=== PATIENT | male | born 1950 | race African-American/Black ===

== ENCOUNTER → 2019-03-07 | Outpatient (CLI) | payer MEDICARE | LOC: YHH 15:00 ==

== ENCOUNTER 2019-07-10 10:10 | Inpatient (IN) | payer MEDICARE, OTHER ==
[2019-07-10] MEDS ORDERED: PIPERACILLIN/TAZOB 4.5 GM 4.5 GM in DEXTROSE 5%-WATER 100 ML IVPB ONE (11:55)
[2019-07-10] MEDS ORDERED: VANCOMYCIN 1 GM in D5W (PRE-DOCKED) 1,000 MG/250 ML IVPB ONE (11:55)
[2019-07-10 12:38] LABS: BASO % 1.1 % (0-2.0); EOS % 0.9 % (0-4.5); HEMATOCRIT 27.3 % (35.4-49); HEMOGLOBIN 8.8 GM/dL (11.7-16.9); LYMPH % 21.9 % (8-40); MCH 28.4 pg (25.7-33.7); MCHC 32.3 g/dl (32.0-35.9); MEAN CELL VOLUME 88.1 fl (80-96); MEAN PLT VOLUME 7.5 fl (7.5-11.1); MONO % 11.3 % (3.8-10.2); NEUT % 64.8 % (42.8-82.8); PLATELET COUNT 153 K/MM3 (134-434); RDW 13.9 % (11.9-15.9); WHITE BLOOD COUNT 8.6 K/mm3 (4.0-10.0)
[2019-07-10] MEDS ORDERED: PIPERACILLIN/TAZOB 4.5 GM 4.5 GM/100 ML BAG IVPB ONE (12:44)
[2019-07-10] MEDS ORDERED: VANCOMYCIN 1 GRAM (PRE-DOCKED) 1,000 MG/250 ML BAG IVPB ONE (12:45)
[2019-07-10 12:59] LABS: INR 1.04 (0.83-1.09); PROTHROMBIN TIME (PATIENT) 12.3 SEC (9.7-13.0)
--- NOTE | 2019-07-10 13:30 | PDOC ---
Documentation entered by Oscar Hernandez SCRIBE, acting as scribe for Jazmine Mcdonald MD. Jazmine Mcdonald MD: This documentation has been prepared by the David george Xhesika, SCRIBE, under my direction and personally reviewed by me in its entirety. I confirm that the documentation accurately reflects all work, treatment, procedures, and medical decision making performed by me. History of Present Illness - General Chief Complaint: Wound Stated Complaint: SENT BY DOCTOR History Source: Patient Exam Limitations: No Limitations - History of Present Illness Initial Comments: 07/10/19 11:52 The patient is a 68 year old male with a significant PMH of multiple myeloma ( receiving weekly infusions of daratumumab; followed by Francis Jones) , htn, dm who presents to the emergency department for bilateral lower extremity wounds with purulent malodorous discharge. Pt states his RLE wounds started before New Years [place], but his LLE wounds have been chronic for the past 4 months. Pt states his legs have been more swollen. Pt states he has seen Dr. Le in the past with no improvements or changes. The patient denies chest pain, shortness of breath, headache and dizziness. Denies fever, chills, cough, nausea, vomiting, diarrhea and constipation. Allergies: lisinopril PCP: Mini Unger 07/10/19 15:24 Past History - Past Medical History Allergies/Adverse Reactions: Allergies Allergy/AdvReac Type Severity Reaction Status Date / Time lisinopril Allergy Severe Swelling Verified 07/10/19 10:30 Home Medications: Ambulatory Orders Methadone [Dolophine -] 50 mg PO DAILY 12/11/17 Carvedilol [Coreg -] 12.5 mg PO BID 04/11/18 Docusate Sodium [Colace -] 100 mg PO TID #90 capsule 06/15/18 Mupirocin Cream [Bactroban 2% Cream -] 1 applic TP DAILY #1 tube 02/22/19 Alcohol Antiseptic Pads [Alcohol Prep Pads] 1 each TP TID #1 box 02/26/19 Diltiazem HCl [Diltiazem 24Hr Cd] 240 mg PO DAILY #30 cap.er.24h 02/26/19 Fluticasone Prop 0.05% Nasal [Flonase -] 1 - 2 spray NS DAILY #1 spray.pump Furosemide [Lasix -] 40 mg PO DAILY #30 tablet 02/26/19 Insulin Aspart [Novolog] 2 - 12 unit SQ TID #1 box 02/26/19 Insulin Detemir [Levemir Flextouch] 60 unit SQ HS #2 box 02/26/19 Insulin Sliding Scale [Novolog Vial Sliding Scale -] 2 - 12 units SQ TIDAC #1 box 02/26/19 Lancets [Lancets Ultra Thin] 1 each MC TID #100 each 02/26/19 Loratadine [Claritin -] 10 mg PO DAILY PRN #30 tablet 02/26/19 Miscellaneous Medical Supply [Glucometer Test Strips #100] 1 each HIMA TID #1 box 02/26/19 Pen Needle, Diabetic [Unifine Pentips] 1 each MC TID #100 dis.needle 02/26/19 Ergocalciferol (Vitamin D2) [Vitamin D2] 50,000 unit PO WEEKLY #4 capsule Multivitamin,Ther and Minerals [Vitamin and Minerals] 1 each PO DAILY #30 tablet 03/19/19 Acetaminophen [Tylenol .Regular Strength -] 650 mg PO Q6H PRN #60 tablet Albuterol Sulfate Inhaler - [Ventolin HFA Inhaler -] 1 - 2 inh PO Q6H PRN #1 inh 04/16/19 Ammonium Lactate Lotion [Lac-Hydrin 12] 1 applic TP ASDIR #1 bottle 04/16/19 Diaper,Brief,Adult, Disposable [Extra Absorbent Undergarment] 1 each MC 5XD # 150 each 04/16/19 Nicotine [Nicotine Patch 14mg/24 hr] 1 each TD DAILY #30 patch.td24 04/16/19 Omeprazole Magnesium [Prilosec Otc] 20 mg PO DAILY PRN #30 tablet. 04/16/19 Underpads [Durasorb] 1 each MC ASDIR #60 each 04/16/19 Walker [Ultra-Light Rollator] 1 each MC ASDIR #1 each 04/16/19 Anemia: Yes Cancer: Yes (multiple myeloma; stem cell trans. 2010, followed by, Dr. Forbes) Cardiac Disorders: Yes (heart murmur, congenital; chf) CVA: No COPD: No Diabetes: Yes HTN: Yes Hypercholesterolemia: No Liver Disease: No Seizures: No Other medical history: MULTIPLE MYOLOMA - Surgical History Orthopedic Surgery: Yes (rt hip replacement 2009) - Immunization History Immunization Up to Date: Yes - Psycho Social/Smoking Cessation Hx Smoking History: Current every day smoker Have you smoked in the past 12 months: No Number of Cigarettes Smoked Daily: 20 If you are a former smoker, when did you quit?: 2018 Cigars Per Day: 0 Information on smoking cessation initiated: No Hx Alcohol Use: No Drug/Substance Use Hx: No Substance Use Type: Heroin Hx Substance Use Treatment: Yes Review of Systems - Review of Systems Able to Perform ROS?: Yes Comments:: 07/10/19 11:52 GENERAL: The patient is in no acute distress. ENT: Ears normal, nares patent, oropharynx clear without exudates. Moist mucous membranes. NECK: Normal range of motion, supple, no nuchal rigidity LUNGS: Breath sounds equal, clear to auscultation bilaterally. No wheezes, and no crackles. HEART: Regular rate and rhythm, normal S1 and S2 without murmur, rub or gallop. ABDOMEN: Soft, nontender, normoactive bowel sounds. No guarding, no rebound. No masses palpable. EXTREMITIES: Normal range of motion. +bilateral lower extremity wounds and swelling. NEUROLOGICAL: Cranial nerves II through XII grossly intact. Normal speech. No focal neurological deficits. SKIN: Warm, Dry, normal turgor, no rashes or lesions noted. *Physical Exam - Vital Signs Last Vital Signs Temp Pulse Resp BP Pulse Ox 98.2 F 100 H 18 128/78 97 07/10/19 10:30 07/10/19 10:30 07/10/19 10:30 07/10/19 10:30 07/10/19 10:30 - Physical Exam 07/10/19 11:53 GENERAL: The patient is in no acute distress. NECK: Normal range of motion, supple without lymphadenopathy, JVD, or masses. LUNGS: Breath sounds equal, clear to auscultation bilaterally. No wheezes, and no crackles. HEART:Regular rate and rhythm, normal S1 and S2 without murmur, rub or gallop. ABDOMEN: Soft, nontender, normoactive bowel sounds. No guarding, no rebound. No masses palpable. EXTREMITIES: Normal range of motion. + 2 ulcers to R inferior to medial malleolus. +BLE swelling, erythema and warmth. (+) Bilateral Edema (4+ edema bilaterally w/ thickened hypertrophic changes) 2 open ulcerations rt lower leg (malodorous)- lower ulcer - open, w/ rolled edges- medial aspect near ankle - 2.5 x 2.2 cm, draining clear, sanguinous discharge; upper ulcer noted more anteriorly, 2 x 3cm purulent sanguinous discharge left ankle anterior w/ 1.8 x 1 cm ulcer w/ tunneling at 12 o'clock) NEUROLOGICAL: Cranial nerves II through XII grossly intact. Normal speech. No focal neurological deficits. MUSCULOSKELETAL: Back non-tender to palpation, no CVA tenderness SKIN: Warm, Dry, normal turgor, no rashes or lesions noted 07/10/19 15:23 ED Treatment Course - LABORATORY CBC & Chemistry Diagram: 07/10/19 11:45 07/10/19 11:45 - ADDITIONAL ORDERS Additional order review: Laboratory Results 07/10/19 07/10/19 07/10/19 11:45 11:45 11:45 RBC 3.10 L MCV 88.1 MCH 28.4 MCHC 32.3 RDW 13.9 MPV 7.5 D Absolute Neuts (auto) 5.6 Neutrophils % 64.8 Lymphocytes % 21.9 D Monocytes % 11.3 H Eosinophils % 0.9 Basophils % 1.1 Nucleated RBC % 0 PT with INR 12.30 INR 1.04 C-Reactive Protein 4.5 H 07/10/19 11:45 RBC 3.10 L MCV 88.1 MCHC 32.3 RDW 13.9 MPV 7.5 D Neutrophils % 64.8 Lymphocytes % 21.9 D Monocytes % 11.3 H Eosinophils % 0.9 Basophils % 1.1 - RADIOLOGY Radiology Studies Ordered: Category Date Time Status FOOT-LEFT [RAD] Stat Radiology 07/10/19 11:53 Ordered FOOT-RIGHT [RAD] Stat Radiology 07/10/19 11:53 Ordered LEG TIB/FIB-LEFT [RAD] Stat Radiology 07/10/19 11:53 Ordered LEG TIB/FIB-RIGHT [RAD] Stat Radiology 07/10/19 11:53 Ordered DUPLEX VASCUL US-2LEGS [US] Stat Ultrasound 07/10/19 11:53 Ordered Medical Decision Making - Medical Decision Making 07/10/19 13:26 Mr. Alvarado is a 68-year-old male with a history of diabetes, hypertension who presents emergency department upon the insistence of his primary care physician due to lower extremity ulcers Patient states that he has had lower extremity edema which has progressively worsened. The right lower extremity, patient was noted to have an ulcer that began as a blister just prior to New Year's. The wound has progressively worsened such that now he has 2 ulcers that are approximately 2 cm in diameter which are perfectly round. Patient now also has lower extremity erythema and warmth. No systemic signs of illness. Has not started antibiotics. Examination reveals: Bilateral lower extremity pitting edema Venous stasis changes Feet are warm, pulses difficult to palpate Sensation is intact Patient is able to move his toes. Right lower extremity beneath the right medial malleolus there are 2 well- circumscribed circular ulcers measuring approximately 1.5 to 2 cm each in diameter. There is a dried eschar on the top of both ulcers No expressible purulence Patient has erythema up the entire leg. Left lower extremity: Patient has a smaller 7 mm skin wound, moist, no eschar, no expressible purulence, lower extremity erythema noted Will do: Labs Duplex pl X-ray Abx Admit 07/10/19 14:28 Laboratory Tests 02/26/19 07/10/19 07/10/19 11:00 11:45 11:45 WBC 6.2 8.6 Hgb 9.3 L 8.8 L Hct 28.4 L 27.3 L Plt Count 166 153 INR BUN Creatinine C-Reactive Protein 4.5 H 07/10/19 07/10/19 11:45 11:45 WBC Hgb Hct Plt Count INR 1.04 BUN 34.1 H Creatinine 1.7 H C-Reactive Protein Duplex negative for DVT 07/10/19 14:29 Xray: no subcutaneous air 07/10/19 16:52 EKG: NSR rate of 86 bpm, LAD, LVH, no st elevation or depression, intervals nml Discharge - Discharge Information Problems reviewed: Yes Clinical Impression/Diagnosis: Ulcer of right leg Qualifiers: Non-pressure ulcer stage: unspecified non-pressure ulcer stage Qualified Code(s ): L97.919 - Non-pressure chronic ulcer of unspecified part of right lower leg with unspecified severity Ulcer of left lower extremity Qualifiers: Non-pressure ulcer stage: unspecified non-pressure ulcer stage Qualified Code(s ): L97.929 - Non-pressure chronic ulcer of unspecified part of left lower leg with unspecified severity Cellulitis Qualifiers: Site of cellulitis of extremity: lower extremity Laterality: unspecified laterality Condition: Stable - Admission Yes - Follow up/Referral Referrals: Mini Campos PURCHASING AGENT [Primary Care Provider] - - Patient Discharge Instructions - Post Discharge Activity
[2019-07-10 14:18] LABS: ALBUMIN 3.3 g/dl (3.4-5.0); BILIRUBIN,TOTAL 0.3 mg/dL (0.2-1); BLOOD UREA NITROGEN 34.1 mg/dL (7-18); CALCIUM 8.3 mg/dL (8.5-10.1); CREATININE 1.7 mg/dL (0.55-1.3); POTASSIUM 3.7 mmol/L (3.5-5.1); TOT PROT 6.5 g/dl (6.4-8.2)
--- NOTE | 2019-07-10 15:58 | EKG ---
Test Reason : Blood Pressure : / mmHG Vent. Rate : 086 BPM Atrial Rate : 086 BPM P-R Int : 178 ms QRS Dur : 114 ms QT Int : 392 ms P-R-T Axes : 050 -37 018 degrees QTc Int : 469 ms NORMAL SINUS RHYTHM LEFT AXIS DEVIATION MODERATE VOLTAGE CRITERIA FOR LVH, MAY BE NORMAL VARIANT CANNOT RULE OUT SEPTAL INFARCT (CITED ON OR BEFORE 08-MAY-2017) ABNORMAL ECG WHEN COMPARED WITH ECG OF 08-MAY-2017 11:07, QUESTIONABLE CHANGE IN INITIAL FORCES OF SEPTAL LEADS Confirmed by ANTONIA CONDON, GIDEON ([id number]) on 07/10/2019 3:58:08 PM Referred By: Confirmed By:GIDEON KNIGHT MD
--- NOTE | 2019-07-10 16:35 | HP ---
CHIEF COMPLAINT: bilateral lower extremity pain, wounds PCP: Mini Villela HISTORY OF PRESENT ILLNESS: Patient is a 68 year old male with history of hypertension, diabetes mellitus ( insulin dependent), multiple myeloma (daratumumab), CHF, hepatitis C (received treatment) presents with complaint of lower extremity pain. Patient endorses right lower extremity would that began approx one month ago, and left lower extremity would that began approx 6 months ago. He endorses prior similar wounds , and states he has seen Dr. Le in the past (last appointment six months ago - however stopped follow up for multiple myeloma treatment). He denies trauma to the legs or obvious inciting features. Patient attempts to wrap his lower extremities and applies Neosporin ointment. A home Health Aide assists him in keeping hte area clean and dry. Patient noted malodorous, purulent drainage from the right lower extremity two days ago, prompting him to visit his primary care physician, who urged him to proceed to ED for evaluaiton. Denies lower extremity pain. Denies subjective fevers, chills, shortness of breath, chest pain, palpitations, abdominal pain, nausea, vomiting, diarrhea, melena, hematochezia, or any trauma. ER course was notable for: (1) Vancomycin, Zosyn (2) (3) Recent Travel: Denies PAST MEDICAL HISTORY: hypertension, diabetes mellitus, multiple myeloma, CHF, hepatitis C PAST SURGICAL HISTORY: right hip surgery 20 years ago Social History: Lives with and son. Home Health Aide three times per week. Ambulates with cane. Smoking: Smokes 1/2 pack per day. Smoker for past 50 years. Alcohol: Denies Drugs: Former IV heroine, cocaine use. Has not used in 20 years. Allergies lisinopril Allergy (Severe, Verified 07/10/19 10:30) Swelling HOME MEDICATIONS: Home Medications Medication Instructions Recorded Methadone [Dolophine -] 50 mg PO DAILY 12/11/17 Carvedilol [Coreg -] 12.5 mg PO BID 04/11/18 Docusate Sodium [Colace -] 100 mg PO TID #90 capsule 06/15/18 Mupirocin Cream [Bactroban 2% 1 applic TP DAILY #1 tube 02/22/19 Cream -] Alcohol Antiseptic Pads [Alcohol 1 each TP TID #1 box 02/26/19 Prep Pads] Diltiazem HCl [Diltiazem 24Hr Cd] 240 mg PO DAILY #30 cap.er.24h 02/26/19 Fluticasone Prop 0.05% Nasal 1 - 2 spray NS DAILY #1 spray.pump 02/26/19 [Flonase -] Furosemide [Lasix -] 40 mg PO DAILY #30 tablet 02/26/19 Insulin Aspart [Novolog] 2 - 12 unit SQ TID #1 box 02/26/19 Insulin Detemir [Levemir Flextouch] 60 unit SQ HS #2 box 02/26/19 Insulin Sliding Scale [Novolog 2 - 12 units SQ TIDAC #1 box 02/26/19 Vial Sliding Scale -] Lancets [Lancets Ultra Thin] 1 each MC TID #100 each 02/26/19 Loratadine [Claritin -] 10 mg PO DAILY PRN #30 tablet 02/26/19 Miscellaneous Medical Supply 1 each HIMA TID #1 box 02/26/19 [Glucometer Test Strips #100] Pen Needle, Diabetic [Unifine 1 each MC TID #100 dis.needle 02/26/19 Pentips] Ergocalciferol (Vitamin D2) 50,000 unit PO WEEKLY #4 capsule 03/19/19 [Vitamin D2] Multivitamin,Ther and Minerals 1 each PO DAILY #30 tablet 03/19/19 [Vitamin and Minerals] Acetaminophen [Tylenol .Regular 650 mg PO Q6H PRN #60 tablet 04/16/19 Strength -] Albuterol Sulfate Inhaler - 1 - 2 inh PO Q6H PRN #1 inh 04/16/19 [Ventolin HFA Inhaler -] Ammonium Lactate Lotion 1 applic TP ASDIR #1 bottle 04/16/19 [Lac-Hydrin 12] Diaper,Brief,Adult, Disposable 1 each MC 5XD #150 each 04/16/19 [Extra Absorbent Undergarment] Nicotine [Nicotine Patch 14mg/24 1 each TD DAILY #30 patch.td24 04/16/19 hr] Omeprazole Magnesium [Prilosec Otc] 20 mg PO DAILY PRN #30 tablet. 04/16/19 Underpads [Durasorb] 1 each MC ASDIR #60 each 04/16/19 Walker [Ultra-Light Rollator] 1 each MC ASDIR #1 each 04/16/19 REVIEW OF SYSTEMS CONSTITUTIONAL: Absent: fever, chills, diaphoresis, generalized weakness, malaise, loss of appetite, weight change HEENT: Absent: rhinorrhea, nasal congestion, throat pain, throat swelling, difficulty swallowing, mouth swelling, ear pain, eye pain, visual changes CARDIOVASCULAR: Absent: chest pain, syncope, palpitations, irregular heart rate, lightheadedness , peripheral edema RESPIRATORY: Absent: cough, shortness of breath, dyspnea with exertion, orthopnea, wheezing, stridor, hemoptysis GASTROINTESTINAL: Absent: abdominal pain, abdominal distension, nausea, vomiting, diarrhea, constipation, melena, hematochezia GENITOURINARY: Absent: dysuria, frequency, urgency, hesitancy, hematuria, flank pain, genital pain MUSCULOSKELETAL: Absent: myalgia, arthralgia, joint swelling, back pain, neck pain SKIN: Admits: wound, erythema, purulent drainage bilateral lower extremities. HEMATOLOGIC/IMMUNOLOGIC: Absent: easy bleeding, easy bruising, lymphadenopathy, frequent infections ENDOCRINE: Absent: unexplained weight gain, unexplained weight loss, heat intolerance, cold intolerance NEUROLOGIC: Absent: headache, focal weakness or paresthesias, dizziness, unsteady gait, seizure, mental status changes, bladder or bowel incontinence PSYCHIATRIC: Absent: anxiety, depression, suicidal or homicidal ideation, hallucinations. PHYSICAL EXAMINATION Vital Signs - 24 hr 07/10/19 07/10/19 10:30 15:00 Temperature 98.2 F Pulse Rate 100 H Respiratory 18 Rate Blood Pressure 128/78 O2 Sat by Pulse 97 99 Oximetry (%) GENERAL: Awake, alert, and fully oriented, in no acute distress. HEAD: Normal with no signs of trauma. EYES: Pupils equal, round and reactive to light, extraocular movements intact, sclera anicteric, conjunctiva clear. EARS, NOSE, THROAT: Oropharynx clear without exudates. Moist mucous membranes. NECK: Supple without lymphadenopathy. LUNGS: Breath sounds equal, clear to auscultation bilaterally. No wheezes, and no crackles. No accessory muscle use. HEART: Regular rate and rhythm, normal S1 and S2 without murmur, rub or gallop. ABDOMEN: Obese abdomen. Soft, nontender, not distended, normoactive bowel sounds , no guarding, no rebound tenderness. MUSCULOSKELETAL: Normal range of motion at all joints. No bony deformities or tenderness. UPPER EXTREMITIES: 2+ radial pulses, warm, well-perfused. LOWER EXTREMITIES: 1+ dorsalis pedis pulses bilaterally, warm, well-perfused. 2 + peripheral edema bilateral lower extremities. NEUROLOGICAL: Cranial nerves II-XII intact. Normal speech. No gross focal deficits. PSYCHIATRIC: Cooperative. Appropriate mood and affect. SKIN: Two ulcers anterior aspect right ankle (2.5 x 2.5 cm, 2cm x 3cm). Left anterior ankle ulcer (2cm x 1.5cm). Malodorous purulent discharge. Lower extremity thickened skin with stasis dermatitis changes. Right sided chest port in place. Area clean, dry. Laboratory Results - last 24 hr 07/10/19 07/10/19 07/10/19 11:45 11:45 11:45 WBC 8.6 RBC 3.10 L Hgb 8.8 L Hct 27.3 L MCV 88.1 MCH 28.4 MCHC 32.3 RDW 13.9 Plt Count 153 MPV 7.5 D Absolute Neuts (auto) 5.6 Neutrophils % 64.8 Lymphocytes % 21.9 D Monocytes % 11.3 H Eosinophils % 0.9 Basophils % 1.1 Nucleated RBC % 0 ESR PT with INR INR Sodium 138 Potassium 3.7 Chloride 105 Carbon Dioxide 24 Anion Gap 8 BUN 34.1 H Creatinine 1.7 H Est GFR (CKD-EPI)AfAm 46.65 Est GFR (CKD-EPI)NonAf 40.25 Random Glucose 99 Calcium 8.3 L Total Bilirubin 0.3 AST 13 L ALT 24 Alkaline Phosphatase 138 H C-Reactive Protein 4.5 H Total Protein 6.5 Albumin 3.3 L Blood Type Antibody Screen 07/10/19 07/10/19 07/10/19 11:45 11:45 11:45 WBC RBC Hgb Hct MCV MCH MCHC RDW Plt Count MPV Absolute Neuts (auto) Neutrophils % Lymphocytes % Monocytes % Eosinophils % Basophils % Nucleated RBC % ESR 90 H PT with INR 12.30 INR 1.04 Sodium Potassium Chloride Carbon Dioxide Anion Gap BUN Creatinine Est GFR (CKD-EPI)AfAm Est GFR (CKD-EPI)NonAf Random Glucose Calcium Total Bilirubin AST ALT Alkaline Phosphatase C-Reactive Protein Total Protein Albumin Blood Type O POSITIVE Antibody Screen Positive H ASSESSMENT/PLAN: Patient is a 68 year old male with history of hypertension, diabetes mellitus ( insulin dependent), multiple myeloma (daratumumab), CHF, hepatitis C (received treatment) presents with complaint of lower extremity pain. Bilateral lower extremity wounds -Radiographs fo the lower extremities reveal no acute free air. -ESR 90, CRP 4.5 -Patient received Vancomycin, Zosyn in ED. Will continue pending ID recommendations (Dr. Strickland). -MRI bialteral lower extremities to evaluate for osteomyelitis -Arterial duplex bilateral lower extremities -Duplex lower extremities negative for acute DVT -Wound care consult (Dr. Le) -Podiatry consult (Dr. Nuno) Elevated alkaline phosphatase -Will obtain GGT; concern for osteomyelitis if emanating from bone Diabetes mellitus -HgbA1c -Insulin Levemir 30units subq HS -Insulin slidng scale ACHS -Fingerstick blood glucose ACHS History of CHF -Obtain BNP -Transthoracic cardiac ECHO -Lasix 40mg IV daily Hypertension -Continue Diltiazem 24mg PO daily Chronic kidney disease -Cr 1.7; at baseline. Has been followed by in the past History of polysubstance abuse -Former Heroine, Cocaine; Last use 20 years ago; -Methadone dose to be confirmed in morning. Goes to [facility]. Nicotine Depenence -Counselled regarding smoking cessation -Nicotine patch 21 grams TD daily -Nicotine gum PRN Hepatitis C -Patient has received treatment. Continue outpatient follow up with Dr. Munoz. Multiple Myeloma -Stable, receiving therapy with Daratummab. Followed by Oncologist Dr. Forbes. FEN -No IV fluids indicated -Follow BMP -Sodium modified diabetic diet Prophylaxis -Heparin 5000 units subq TID Disposition -Admit to medical- surgical floor Visit type - Emergency Visit Emergency Visit: Yes ED Registration Date: 07/10/19 Care time: The patient presented to the Emergency Department on the above date and was hospitalized for further evaluation of their emergent condition. - New Patient This patient is new to me today: Yes Date on this admission: 07/10/19 - Critical Care Critical Care patient: No ATTENDING PHYSICIAN STATEMENT I saw and evaluated the patient. I reviewed the resident's note and discussed the case with the resident. I agree with the resident's findings and plan as documented. SUBJECTIVE: OBJECTIVE: ASSESSMENT AND PLAN:
[2019-07-10] MEDS ORDERED: NICOTINE POLACRILEX 4 MG GUM BUC PRN (17:51)
[2019-07-10] MEDS ORDERED: PIPERACILLIN/TAZOB 3.375 GM 3.375 GM/50 ML BAG IVPB ONE (18:05)
[2019-07-10] MEDS ORDERED: FUROSEMIDE 40 MG/4 ML INJECTABLE VIAL IVPUSH ONE (18:11)
--- NOTE | 2019-07-10 18:15 | PN ---
Teaching Attending Note Name of Resident: Sathya Gordon ATTENDING PHYSICIAN STATEMENT I saw and evaluated the patient. I reviewed the resident's note and discussed the case with the resident. I agree with the resident's findings and plan as documented. Seen and examined; please see resident note for further historical information. I personally verified all [place] historical information and exam findings. Personally interpreted all imaging and diagnostics and reviewed appropriate consults. I reviewed all labs and vital signs as per resident note and EMR as documented. I agree with the above assessment and plan unless supplemented by myself in the following. Agree with the subjective provided in the progress note. 10 item review of systems was completed and is negative aside from history of present illness as described. VS, labs, imaging reviewed NAD, AAO, resting comfortably in bed. RRR s1/2 no mgr Normal muscle tone, moves all 5 extremities with normal apparent strength Neck is supple, trachea midline, no nikole LN Lungs CTAB with sym expansion NT ND +BS no nikole organomegaly CN2-12 wnl; no FND NC AT EOMI PERRLA Normal mood, appropriate behavior, euthymic affect No skin breakdown or rashes noted -EKG 07/10/19: EKG shows MT interval of 178 with a QTC of 469 with normal sinus rhythm with left axis deviation and LVH criteria by voltage versus normal variant C. Cannot rule out septal infarct on or before 08 May 2017 due to a change in the initial forces of the septal leaves which is actually questionable as per CV. No active coronary artery disease symptoms -Right leg x-ray reveals no sign of fracture or subluxation with soft tissue calcifications present. No sign of soft tissue air. Recommended bone scan/MRI to rule out osteo-. -Right foot x-ray reveals bunion formation by the first MTP and soft tissue swelling with vascular calcifications. No fractures blastic or lytic changes are seen. Old fracture deformity at the base of the proximal phalanx of the fifth right toe. No sign of soft tissue air. -Arterial Doppler BL LE pending -Echo potentially pending-if no OP study found will order -Chest x-ray reveals no acute chest pathology with right Mediport present and prominent mediastinum with no change since 05/11/2018. A/P: Patient presents at the behest of his primary care physician for ongoing chronic lower extremity wounds. Pending MRI, vascular surgery/wound care, podiatry evaluation. Problems include: -Bilateral lymphedema with potential diabetic ulcers; used to follow with Dr. Le. Had Tubigrip's applied, juxta light ordered, Bactroban applied, was supposed to be using lymphedema pump. Need to fully elucidate his history in regards to hyperbaric treatment. We will verify with oncology that his chemotherapeutic agent is not associated with any skin breakdown and cross reference evidence-based guidelines. Obtaining arterial Dopplers, and consulting vascular. Elevated ESR CRP, checking MRI. Given poor appearance of bilateral feet will consult podiatry -Myeloma; will verify and continue his home treatment. -Former history of opiate, cocaine dependence, noted history. -History of angioedema secondary to lisinopril -History of hepatitis C, obtain old treatment records. Nonencephalopathic -History of GERD, continue PPI -History of chronic deconditioning. Ambulates with a walker at home. PT is consulted and pending. History of acute allergic rhinitis, continue loratadine 10 mg as needed -Chronic pain associated with cancer in the setting of prior opiate abuse, continue methadone History of diabetes mellitus, continue home Levemir, continue SSI. Check A1c given the underlying wounds. Full code
[2019-07-10] MEDS: PIPERACILLIN/TAZOB 3.375 GM 3.375 GM in DEXTROSE 5%-WATER - 50 ML IVPB SCH (19:00)
[2019-07-10] MEDS ORDERED: FUROSEMIDE 40 MG/4 ML INJECTABLE VIAL ONE (19:43)
[2019-07-10 19:53] LABS: N-TERMINAL BNP 445.5 pg/ml (5-125)
[2019-07-10] MEDS ORDERED: INSULIN (LEVEMIR) 100 UNITS/ML UNITS SQ ONE ×2 (22:51→22:52)
[2019-07-10] MEDS ORDERED: INSULIN (NOVOLOG) ASPART 100 UNITS/ML 10ML VIAL ONE (22:51)
[2019-07-10] MEDS: INSULIN (LEVEMIR) 100 UNITS/ML UNITS SQ SCH (23:05)
[2019-07-10] MEDS: NICOTINE 21 MG/24 HOURS TOPICAL PATCH TD SCH (23:05)
[2019-07-10] MEDS: INSULIN SLIDING SCALE (NOVOLOG) 1 VIAL SQ SCH (23:06)
[2019-07-11 00:55] VITALS: BMI 42.5
[2019-07-11] MEDS ORDERED: DEXTROSE 5%-WATER - 50 ML IVPB ONE ×3 (01:17→17:01)
[2019-07-11] MEDS ORDERED: PIPERACILLIN/TAZOBACTAM 3.375 GM VIAL IVPB ONE ×3 (01:17→17:01)
[2019-07-11] MEDS: PIPERACILLIN/TAZOB 3.375 GM 3.375 GM in DEXTROSE 5%-WATER - 50 ML IVPB SCH ×6 (01:44→20:58)
[2019-07-11] MEDS ORDERED: INSULIN (NOVOLOG) ASPART 100 UNITS/ML 10ML VIAL ONE ×4 (05:31→21:11)
[2019-07-11] MEDS: INSULIN SLIDING SCALE (NOVOLOG) 1 VIAL SQ SCH ×4 (06:12→21:19)
[2019-07-11] MEDS ORDERED: FLU VACCINE QUAD 60 MCG/0.5 ML (MDV 19-20) IM ONE (09:00)
[2019-07-11] MEDS ORDERED: METHADONE HCL 40 MG DISPERSABLE TABLET ONE (09:08)
[2019-07-11] MEDS ORDERED: METHADONE HCL 5 MG TABLET ONE (09:08)
[2019-07-11] MEDS ORDERED: PT OWN MED DRAWER 7, Y5N ONE (09:09)
[2019-07-11] MEDS: MULTIVITAMINS THER W-MINERALS COMBO TABLET (FP) PO SCH (09:11)
[2019-07-11] MEDS: METHADONE 80 MG, METHADONE 5 MG PO SCH (09:11)
[2019-07-11] MEDS: FUROSEMIDE 40 MG/4 ML INJECTABLE VIAL IVPUSH SCH (09:12)
[2019-07-11 09:29] LABS: HEMOGLOBIN 8.7 GM/dL (11.7-16.9); MCH 29.1 pg (25.7-33.7); MCHC 33.5 g/dl (32.0-35.9); MEAN PLT VOLUME 8.1 fl (7.5-11.1); PLATELET COUNT 157 K/MM3 (134-434); RBC 2.99 M/mm3 (4.00-5.60); WHITE BLOOD COUNT 7.1 K/mm3 (4.0-10.0)
[2019-07-11 09:57] LABS: BILIRUBIN,TOTAL 0.3 mg/dL (0.2-1); BLOOD UREA NITROGEN 30.4 mg/dL (7-18); CALCIUM 8.4 mg/dL (8.5-10.1); CREATININE 1.7 mg/dL (0.55-1.3); MAGNESIUM 1.8 mg/dL (1.8-2.4); PHOSPHOROUS 4.1 mg/dL (2.5-4.9); POTASSIUM 3.7 mmol/L (3.5-5.1); TOT PROT 6.4 g/dl (6.4-8.2)
[2019-07-11] MEDS ORDERED: METHADONE HCL 40 MG DISPERSABLE TABLET PO SCH (10:00)
[2019-07-11] MEDS ORDERED: FUROSEMIDE 40 MG TABLET (FP) PO SCH (10:00)
--- NOTE | 2019-07-11 10:36 | CONSULT ---
Consult Consult Specialty:: podiatry Reason for Consultation:: b/l lower ext wounds. - History of Present Illness History of Present Illness: Patient is a 68 year old male with history of hypertension, diabetes mellitus ( insulin dependent), multiple myeloma (daratumumab), CHF, hepatitis C (received treatment) presents with complaint of lower extremity pain. Patient endorses right lower extremity would that began approx one month ago, and left lower extremity would that began approx 6 months ago. Patient was out of room at this time for echo/sonogram/and MRI so history and evaluation taken from notes at [facility] time. - History Source History Provided By: Medical Record - Past Medical History Cardio/Vascular: Yes: HTN, Other (Rheumatic fever) Endocrine: Yes: Diabetes Mellitus - Past Surgical History Past Surgical History: Yes: Joint Replacement (Right hip 9 years ago) - Alcohol/Substance Use Hx Alcohol Use: No - Smoking History Smoking history: Current every day smoker Have you smoked in the past 12 months: No Aproximately how many cigarettes per day: 20 If you are a former smoker, when did you quit?: 2018 Home Medications - Allergies Allergies/Adverse Reactions: Allergies Allergy/AdvReac Type Severity Reaction Status Date / Time lisinopril Allergy Severe Swelling Verified 07/10/19 10:30 - Home Medications Home Medications: Ambulatory Orders Diltiazem HCl [Diltiazem 24Hr Cd] 240 mg PO DAILY #30 cap.er.24h 02/26/19 Furosemide [Lasix -] 40 mg PO DAILY #30 tablet 02/26/19 Insulin Detemir [Levemir Flextouch] 60 unit SQ HS #2 box 02/26/19 Multivitamin,Ther and Minerals [Vitamin and Minerals] 1 each PO DAILY #30 tablet 03/19/19 Methadone [Dolophine -] 85 mg PO DAILY 07/10/19 Physical Exam Vital Signs: Vital Signs Temperature 98.2 F 07/11/19 06:00 Pulse Rate 94 H 07/11/19 06:00 Respiratory Rate 20 07/11/19 06:00 Blood Pressure 149/73 07/11/19 06:00 O2 Sat by Pulse Oximetry (%) 97 07/11/19 00:36 Labs: CBC, BMP 07/11/19 07:30 07/11/19 07:30 Assessment/Plan 68 year old male with history of hypertension, diabetes mellitus , multiple myeloma CHF, hepatitis C , presents with complaint of lower extremity wound with possible osteomyelitis. Evaluated labs and reviewed wbc wnl, xrays reviewed no free gas noted Elevated ESR/CRP Will await MRI If MRI reveals osteo then will likely need to be scheduled for a bone biopsy and ferry terminal agent IV abx. Per nurse at this time wounds appear stable. Dr. Le on consult as well so will discus case with him. Will f/u tomorrow.
--- NOTE | 2019-07-11 11:24 | PN ---
Teaching Attending Note Name of Resident: Gama Alvarado ATTENDING PHYSICIAN STATEMENT I saw and evaluated the patient. I reviewed the resident's note and discussed the case with the resident. I agree with the resident's findings and plan as documented. ATTENDING PHYSICIAN STATEMENT I saw and evaluated the patient. I reviewed the resident's note and discussed the case with the resident. I agree with the resident's findings and plan as documented. Seen and examined; please see resident note for further historical information. I personally verified all [place] historical information and exam findings. Personally interpreted all imaging and diagnostics and reviewed appropriate consults. I reviewed all labs and vital signs as per resident note and EMR as documented. I agree with the above assessment and plan unless supplemented by myself in the following. Agree with the subjective provided in the progress note. 10 item review of systems was completed and is negative aside from history of present illness as described. VS, labs, imaging reviewed NAD, AAO, resting comfortably in bed. RRR s1/2 no mgr Normal muscle tone, moves all 5 extremities with normal apparent strength Neck is supple, trachea midline, no nikole LN Lungs CTAB with sym expansion NT ND +BS no nikole organomegaly CN2-12 wnl; no FND NC AT EOMI PERRLA Normal mood, appropriate behavior, euthymic affect No skin breakdown or rashes noted -EKG 07/10/19: EKG shows SD interval of 178 with a QTC of 469 with normal sinus rhythm with left axis deviation and LVH criteria by voltage versus normal variant C. Cannot rule out septal infarct on or before 08 May 2017 due to a change in the initial forces of the septal leaves which is actually questionable as per CV. No active coronary artery disease symptoms -Right leg x-ray reveals no sign of fracture or subluxation with soft tissue calcifications present. No sign of soft tissue air. Recommended bone scan/MRI to rule out osteo-. -Right foot x-ray reveals bunion formation by the first MTP and soft tissue swelling with vascular calcifications. No fractures blastic or lytic changes are seen. Old fracture deformity at the base of the proximal phalanx of the fifth right toe. No sign of soft tissue air. -Arterial Doppler BL LE pending -Echo potentially pending-if no OP study found will order -Chest x-ray reveals no acute chest pathology with right Mediport present and prominent mediastinum with no change since 05/11/2018. A/P: Continue on current abx; pending MRI Problems include: -Bilateral lymphedema with potential diabetic ulcers; r/o osteo. MRI pending. C /w abx. -Myeloma; will verify and continue his home treatment. -Former history of opiate, cocaine dependence, noted history. -History of angioedema secondary to lisinopril -History of hepatitis C, obtain old treatment records. Nonencephalopathic -History of GERD, continue PPI -History of chronic deconditioning. Ambulates with a walker at home. PT is consulted and pending. History of acute allergic rhinitis, continue loratadine 10 mg as needed -Chronic pain associated with cancer in the setting of prior opiate abuse, continue methadone History of diabetes mellitus, continue home Levemir, continue SSI. Check A1c given the underlying wounds. Full code
[2019-07-11] MEDS: NICOTINE 21 MG/24 HOURS TOPICAL PATCH TD SCH (11:30)
--- NOTE | 2019-07-11 13:53 | ECHO ---
Name: ARNOL SHARMA Exam:Adult Echocardiogram Study Date: 07/11/2019 10:20 AM Age: 68 yrs Height: 69 in Weight: 280 lb BSA: 2.4 m2 MMode/2D Measurements & Calculations IVSd: 1.3 cm Ao root diam: 3.2 cm LVIDd: 4.6 cm LA dimension: 3.4 cm LVIDs: 2.9 cm LVPWd: 1.3 cm LVPWs: 1.5 cm EDV(Teich): 97.3 ml ESV(Teich): 32.1 ml LVOT diam: 2.1 cm LAV (MOD-bp): 74.0 ml RV S Kody: 16.0 cm/sec Doppler Measurements & Calculations MV E max kody: 58.7 cm/sec Ao V2 max: 162.2 cm/sec MV A max kody: 74.5 cm/sec Ao max P.5 mmHg MV E/A: 0.79 ELIZABETH(V,D): 2.8 cm2 MV dec time: 0.08 sec LV V1 max P.6 mmHg PA V2 max: 148.6 cm/sec LV V1 max: 128.8 cm/sec PA max P.8 mmHg Lat Peak E' Kody: 7.6 cm/sec Lat E/e': 7.8 Procedure A complete two-dimensional transthoracic echocardiogram was performed (2D, M-mode, Doppler and color flow Doppler). Left Ventricle The left ventricular size, thickness and function are normal. The left ventricular ejection fraction is normal. Ejection Fraction = 60-65%. No regional wall motion abnormalities noted. Right Ventricle The right ventricle is normal in size and function. Atria Normal left and right atrial size and function. Mitral Valve There is no mitral regurgitation noted. Tricuspid Valve There is trace tricuspid regurgitation. There was insufficient TR detected to calculate RV systolic p ressure. Aortic Valve No hemodynamically significant valvular aortic stenosis. No aortic regurgitation is present. Pulmonic Valve There is no pulmonic valvular regurgitation. Great Vessels The aortic root is normal size. Pericardium/Pleura There is no pericardial effusion. Interpretation Summary The left ventricular size, thickness and function are normal The right ventricle is normal in size and function. There is trace tricuspid regurgitation. MD Jake Draper 07/11/2019 01:53 PM
--- NOTE | 2019-07-11 14:37 | PN ---
Physical Exam: SUBJECTIVE: Patient seen and examined at the bedside. Patient stated that he was feeling better and that his leg pain and swelling had improved since discharge. Denied cp, sob, abd pain, n/v/c/d, fevers, chills, headaches, lightheadedness, dizziness, drainage from the wounds, skin changes, dysuria, hematuria. OBJECTIVE: Vital Signs Period Temp Pulse Resp BP Sys/[place] Pulse Ox Last 24 Hr 97.9 F-98.2 F 83-94 18-169 135-149/65-74 97-99 GENERAL: The patient is awake, alert, and fully oriented, in no acute distress. HEAD: Normal with no signs of trauma. EYES: PERRL, extraocular movements intact, sclera anicteric, conjunctiva clear. ENT: Oropharynx clear without exudates, moist mucous membranes. NECK: Trachea midline, full range of motion, supple. LUNGS: Breath sounds equal, clear to auscultation bilaterally, no wheezes, no crackles, no accessory muscle use. HEART: Regular rate and rhythm, S1, S2 without murmur, rub. ABDOMEN: Soft, nontender, nondistended, normoactive bowel sounds, no guarding, no rebound, no masses. EXTREMITIES: 2+ pulses, warm, well-perfused, no edema. NEUROLOGICAL: Cranial nerves II through XII grossly intact. 5/5 muscle strength upper and lower extremities bilaterally. PSYCH: Normal mood, normal affect. SKIN: Two ulcers anterior aspect right ankle (2.5 x 2.5 cm, 2cm x 3cm). Left anterior ankle ulcer (2cm x 1.5cm). Lower extremity thickened skin with stasis dermatitis changes. Redness noted correction up the leg. Mildly tender to palpation. Laboratory Results - last 24 hr 07/10/19 07/10/19 07/10/19 11:45 11:45 23:00 WBC RBC Hgb Hct MCV MCH MCHC RDW Plt Count MPV Sodium 138 Potassium 3.7 Chloride 105 Carbon Dioxide 24 Anion Gap 8 BUN 34.1 H Creatinine 1.7 H Est GFR (CKD-EPI)AfAm 46.65 Est GFR (CKD-EPI)NonAf 40.25 POC Glucometer 157 Random Glucose 99 Hemoglobin A1c % Calcium 8.3 L Phosphorus Magnesium Total Bilirubin 0.3 GGT 56 AST 13 L ALT 24 Alkaline Phosphatase 138 H B-Natriuretic Peptide 445.5 H Total Protein 6.5 Albumin 3.3 L Blood Type O POSITIVE Antibody Screen Positive H Prewarmed Antibody Srcn Negative Antibody Identification No Result Required. Antigen Identification No Result Required. 07/11/19 07/11/19 07/11/19 06:11 07:30 07:30 WBC 7.1 RBC 2.99 L Hgb 8.7 L Hct 26.0 L MCV 87.0 MCH 29.1 MCHC 33.5 RDW 14.0 Plt Count 157 MPV 8.1 Sodium Potassium Chloride Carbon Dioxide Anion Gap BUN Creatinine Est GFR (CKD-EPI)AfAm Est GFR (CKD-EPI)NonAf POC Glucometer 88 Random Glucose Hemoglobin A1c % Calcium Phosphorus Magnesium Total Bilirubin GGT AST ALT Alkaline Phosphatase B-Natriuretic Peptide Total Protein Albumin Blood Type O POSITIVE Antibody Screen Prewarmed Antibody Srcn Antibody Identification Antigen Identification 07/11/19 07/11/19 07/11/19 07:30 07:30 12:03 WBC RBC Hgb Hct MCV MCH MCHC RDW Plt Count MPV Sodium 139 Potassium 3.7 Chloride 105 Carbon Dioxide 27 Anion Gap 7 L BUN 30.4 H Creatinine 1.7 H Est GFR (CKD-EPI)AfAm 46.65 Est GFR (CKD-EPI)NonAf 40.25 POC Glucometer 168 Random Glucose 67 L Hemoglobin A1c % 10.8 H Calcium 8.4 L Phosphorus 4.1 Magnesium 1.8 Total Bilirubin 0.3 GGT AST 14 L ALT 19 Alkaline Phosphatase 129 H B-Natriuretic Peptide Total Protein 6.4 Albumin 3.0 L Blood Type Antibody Screen Prewarmed Antibody Srcn Antibody Identification Antigen Identification Active Medications Generic Name Dose Route Start Last Admin Trade Name Joaquinq PRN Reason Stop Dose Admin Diltiazem HCl 240 mg 07/11/19 10:00 07/11/19 11:30 Cardizem Cd - PO 240 mg DAILY FREDDY Administration Furosemide 40 mg 07/11/19 10:00 07/11/19 09:12 Lasix Injection - IVPUSH 40 mg DAILY FREDDY Administration Piperacillin Sod/Tazobactam 50 mls @ 100 mls/hr 07/10/19 18:00 Sod 3.375 gm/ Dextrose IVPB Q8H-IV FREDDY Protocol Insulin Aspart 1 vial 07/10/19 22:00 07/11/19 12:06 Novolog Vial Sliding Scale - SQ 2 units ACHS FREDDY Administration Protocol Insulin Detemir 30 units 07/10/19 22:00 07/10/19 23:05 Levemir Vial SQ 30 units HS FREDDY Administration Methadone HCl 80 mg/ Methadone 85 mg 07/11/19 09:15 07/11/19 09:11 HCl 5 mg PO 85 mg 0600 FREDDY Administration Multivitamins/Minerals 1 each 07/11/19 10:00 07/11/19 09:11 Theragran-M PO 1 each DAILY FREDDY Administration Nicotine 21 mg 07/10/19 18:00 07/11/19 11:30 Nicoderm Patch - TD 21 mg DAILY FREDDY Administration Nicotine Polacrilex 4 mg 07/10/19 17:51 Nicorette Gum - BUC Q2H PRN NICOTINE REPLACEMENT RX ASSESSMENT/PLAN: Elio Alvarado is a 68 year old male with a past medical history of hypertension, diabetes mellitus (insulin dependent), multiple myeloma (daratumumab), CHF, hepatitis C (received treatment) admited for bilateral lower extremity wounds requiring IV antibiotics. Bilateral lower extremity wounds - Radiographs of the lower extremities reveal no acute free air. - ESR 90, CRP 4.5, monitor in 4 days to determine if antibiotics improve state - continue vancomycin and Zosyn - ID consulted, will continue antibiotics pending recs - MRI bilateral lower extremities to evaluate for osteomyelitis - Arterial duplex bilateral lower extremities - Duplex lower extremities negative for acute DVT - Wound care consulted - Podiatry consulted, recs appreciated Elevated alkaline phosphatase - GGT normal - Alk phos likely from bone, MRI pending to evaluate for osteomyelitis Diabetes mellitus - HgbA1c 10.8 - Insulin Levemir 30units subq HS - ISS ACHS - BGM ACHS History of CHF - BNP 445 - Echo noting normal LV and RV, trace tricuspid regurg - Lasix 40mg IV daily Hypertension - Continue Diltiazem 24mg PO daily Chronic kidney disease - Cr 1.7; at baseline History of polysubstance abuse - Former Heroine, Cocaine Last use 20 years ago - Methadone dose 85mg confirmed [facility] Nicotine Depenence - Counselled regarding smoking cessation - Nicotine patch 21 grams TD daily - Nicotine gum PRN Hepatitis C - Patient has received treatment, continue outpatient follow up with Dr. Munoz. Multiple Myeloma - Stable, receiving therapy with Daratummab, followed by Oncologist Dr. Forbes. FEN - no standing fluids - continue to monitor electrolytes and replete as necessary - Sodium modified diabetic diet Prophylaxis - Heparin 5000 units subq TID Disposition - continue to monitor on Med-surg Visit type - Emergency Visit Emergency Visit: Yes ED Registration Date: 07/10/19 Care time: The patient presented to the Emergency Department on the above date and was hospitalized for further evaluation of their emergent condition. - New Patient This patient is new to me today: Yes Date on this admission: 07/11/19 - Critical Care Critical Care patient: No
[2019-07-11] MEDS ORDERED: VANCOMYCIN 1 GM in D5W (PRE-DOCKED) 1,000 MG/250 ML IVPB ONE (15:00)
--- NOTE | 2019-07-11 16:39 | PN ---
Progress Note (short form) - Note Progress Note: ID CONSULT DICTATED INFECTED LEG ULCERS/ CELLULITIS CHRONIC LE LYMPHEDEMA MULTIPLE MYELOMA DIABETES MELLITIS AZOTEMIA MRI ORDERED R/O OSTEOMYELITIS EMPIRIC ZOSYN/ VANCOMYCIN
--- NOTE | 2019-07-11 17:09 | CONS ---
INFECTIOUS DISEASE CONSULTATION DATE OF CONSULTATION: DATE OF DICTATION: 07/11/2019 HISTORY: The patient is a 68-year-old male with a history of multiple myeloma on immunotherapy, diabetes mellitus, chronic lower extremity lymphedema evaluated for bilateral lower extremity cellulitis and infected ulcers. The patient reports having a nonhealing ulcer on his left lower extremity dating back 4-6 months. Most recently, he noted a malodorous, purulent drainage from that site. In addition, on or around New Years, he developed blisters on his right lower extremity, which subsequently ruptured resulting in ulcerations. He also noted some malodorous, purulent drainage from those wounds. He was advised to present to the emergency room. The patient was admitted to the hospital for further evaluation and treatment. At the present time, he has no complaints of pain. The ulcerations appear dry. He was seen in consultation by Podiatry. An MRI was ordered. He denies any associated fever or chills. Denies prior history of multidrug-resistant pathogens. Wound cultures obtained on admission are growing mixed organisms including nonlactose invasive cardiologist, enterococcus, staphylococcus coagulase negative, and viridans strep. PAST MEDICAL HISTORY: Positive for multiple myeloma on therapy, hypertension, diabetes, chronic lower extremity lymphedema, hepatitis C treated in the past, gastroesophageal reflux. ALLERGIES: LISINOPRIL. Reports angioedema. MEDICATIONS: Include Cardizem, Lasix, insulin, methadone, vancomycin, and Zosyn. SOCIAL HISTORY: Positive for history of opiate and cocaine use. Positive history of tobacco use. SYSTEMS REVIEW: Neurologic: No loss of consciousness, seizure activity, focal weakness. Cardiac: Negative chest pain or palpitations. Respiratory: Negative cough or sputum production. Gastrointestinal: Negative vomiting or diarrhea. Genitourinary: Negative for urinary tract infection. LABORATORY DATA: White count 7.1, hematocrit 26.0, platelet count 157, creatinine 1.7, ESR 90, C-reactive protein 4.5. PHYSICAL EXAMINATION: General: On exam, he is awake and alert. He is not acutely toxic appearing. Vital Signs: Temperature 98.4, blood pressure 137/76, pulse 92 regular, respirations 20 per minute. HEENT: Sclerae anicteric. Heart: Sounds S1, S2. Lungs: Clear. Abdomen: Soft and nontender. Extremities: Bilateral lower extremity lymphedema. There is a dry ulceration present over the middle aspect of the left ankle. There is no expressible pus, no fluctuance. Examination of the right lower extremity, there are 2 ulcerations present in the area of the medial malleolus approximately 2 cm in diameter. There is no expressible pus or malodorous drainage. Both lower extremities are warm to touch and slightly erythematous. IMPRESSION: 1. Infected leg ulcer/cellulitis bilaterally. 2. Chronic lower extremity lymphedema. 3. Multiple myeloma. 4. Diabetes mellitus. 5. Azotemia. PLAN: MRI has been ordered. Await cultures. Continue empiric antibiotic coverage with vancomycin and Zosyn adjusted for renal failure. Further recommendations pending culture results, podiatry evaluation, and local wound care. Thank you for the kind referral. CHERIE WESTFALL M.D. C[place]/[id number]
[2019-07-11] MEDS: VANCOMYCIN 1 GRAM (PRE-DOCKED) 1,000 MG/250 ML BAG IVPB SCH ×2 (17:59→20:53)
[2019-07-11] MEDS ORDERED: PIPERACILLIN/TAZOB 3.375 GM 3.375 GM in DEXTROSE 5%-WATER - 50 ML IVPB SCH (20:00)
[2019-07-11] MEDS: INSULIN (LEVEMIR) 100 UNITS/ML UNITS SQ SCH (21:19)
[2019-07-12] MEDS ORDERED: PIPERACILLIN/TAZOBACTAM 3.375 GM VIAL IVPB ONE ×2 (01:55→09:11)
[2019-07-12] MEDS ORDERED: DEXTROSE 5%-WATER - 50 ML IVPB ONE ×2 (01:56→09:11)
[2019-07-12] MEDS: PIPERACILLIN/TAZOB 3.375 GM 3.375 GM in DEXTROSE 5%-WATER - 50 ML IVPB SCH ×2 (02:04→09:33)
[2019-07-12] MEDS ORDERED: METHADONE HCL 5 MG TABLET ONE (05:54)
[2019-07-12] MEDS ORDERED: METHADONE HCL 40 MG DISPERSABLE TABLET ONE (05:55)
[2019-07-12] MEDS: INSULIN SLIDING SCALE (NOVOLOG) 1 VIAL SQ SCH ×4 (06:01→21:24)
[2019-07-12] MEDS: METHADONE 80 MG, METHADONE 5 MG PO SCH (06:02)
--- NOTE | 2019-07-12 06:14 | PN ---
Physical Exam: SUBJECTIVE: Patient seen and examined at the bedside. Stated he was feeling better but still endorsed lower extremity pain and improved swelling. Denied cp , sob, abd pain, n/v/c/d, fevers, chills, headaches, dizziness, lightheadedness. OBJECTIVE: Vital Signs Period Temp Pulse Resp BP Sys/Gamboa Pulse Ox Last 24 Hr 97.6 F-98.6 F 75-92 18-20 137-144/69-78 97-98 GENERAL: The patient is awake, alert, and fully oriented, in no acute distress. HEAD: Normal with no signs of trauma. EYES: PERRL, extraocular movements intact, sclera anicteric, conjunctiva clear. ENT: Oropharynx clear without exudates, moist mucous membranes. NECK: Trachea midline, full range of motion, supple. LUNGS: Breath sounds equal, clear to auscultation bilaterally, no wheezes, no crackles, no accessory muscle use. HEART: Regular rate and rhythm, S1, S2 without murmur, rub. ABDOMEN: Soft, nontender, nondistended, normoactive bowel sounds, no guarding, no rebound, no masses. EXTREMITIES: poorly palpated pulses pulses, warm, well-perfused, 2+ edema bilaterally. NEUROLOGICAL: Cranial nerves II through XII grossly intact. 5/5 muscle strength upper and lower extremities bilaterally. PSYCH: Normal mood, normal affect. SKIN: Two ulcers anterior aspect right ankle (2.5 x 2.5 cm, 2cm x 3cm). Left anterior ankle ulcer (2cm x 1.5cm). Lower extremity thickened skin with stasis dermatitis changes. Redness noted intermediate up the leg. Mildly tender to palpation. Laboratory Results - last 24 hr 07/11/19 07/11/19 07/11/19 06:11 07:30 07:30 WBC 7.1 RBC 2.99 L Hgb 8.7 L Hct 26.0 L MCV 87.0 MCH 29.1 MCHC 33.5 RDW 14.0 Plt Count 157 MPV 8.1 Sodium Potassium Chloride Carbon Dioxide Anion Gap BUN Creatinine Est GFR (CKD-EPI)AfAm Est GFR (CKD-EPI)NonAf POC Glucometer 88 Random Glucose Hemoglobin A1c % Calcium Phosphorus Magnesium Total Bilirubin AST ALT Alkaline Phosphatase Total Protein Albumin Blood Type O POSITIVE 07/11/19 07/11/19 07/11/19 07:30 07:30 12:03 WBC RBC Hgb Hct MCV MCH MCHC RDW Plt Count MPV Sodium 139 Potassium 3.7 Chloride 105 Carbon Dioxide 27 Anion Gap 7 L BUN 30.4 H Creatinine 1.7 H Est GFR (CKD-EPI)AfAm 46.65 Est GFR (CKD-EPI)NonAf 40.25 POC Glucometer 168 Random Glucose 67 L Hemoglobin A1c % 10.8 H Calcium 8.4 L Phosphorus 4.1 Magnesium 1.8 Total Bilirubin 0.3 AST 14 L ALT 19 Alkaline Phosphatase 129 H Total Protein 6.4 Albumin 3.0 L Blood Type 07/11/19 07/11/19 07/12/19 17:55 21:17 05:59 WBC RBC Hgb Hct MCV MCH MCHC RDW Plt Count MPV Sodium Potassium Chloride Carbon Dioxide Anion Gap BUN Creatinine Est GFR (CKD-EPI)AfAm Est GFR (CKD-EPI)NonAf POC Glucometer 192 234 88 Random Glucose Hemoglobin A1c % Calcium Phosphorus Magnesium Total Bilirubin AST ALT Alkaline Phosphatase Total Protein Albumin Blood Type Active Medications Generic Name Dose Route Start Last Admin Trade Name Freq PRN Reason Stop Dose Admin Diltiazem HCl 240 mg 07/11/19 10:00 07/11/19 11:30 Cardizem Cd - PO 240 mg DAILY FREDDY Administration Furosemide 40 mg 07/11/19 10:00 07/11/19 09:12 Lasix Injection - IVPUSH 40 mg DAILY FREDDY Administration Piperacillin Sod/Tazobactam 50 mls @ 100 mls/hr 07/11/19 18:00 07/12/19 02:04 Sod 3.375 gm/ Dextrose IVPB 100 mls/hr Q8H-IV FREDDY Administration Protocol Vancomycin HCl 1,000 mg in 250 mls @ 166.667 mls/hr 07/11/19 17:00 07/11/19 20:53 Vancomycin (Pre-Docked) IVPB 166.667 mls/hr DAILY@1700 FREDDY Administration Protocol Insulin Aspart 1 vial 07/10/19 22:00 07/12/19 06:01 Novolog Vial Sliding Scale - SQ Not Given ACHS FREDDY Protocol Insulin Detemir 30 units 07/10/19 22:00 07/11/19 21:19 Levemir Vial SQ 30 units HS FREDDY Administration Methadone HCl 80 mg/ Methadone 85 mg 07/11/19 09:15 07/12/19 06:02 HCl 5 mg PO 85 mg 0600 FREDDY Administration Multivitamins/Minerals 1 each 07/11/19 10:00 07/11/19 09:11 Theragran-M PO 1 each DAILY FREDDY Administration Nicotine 21 mg 07/10/19 18:00 07/11/19 11:30 Nicoderm Patch - TD 21 mg DAILY FREDDY Administration Nicotine Polacrilex 4 mg 07/10/19 17:51 Nicorette Gum - BUC Q2H PRN NICOTINE REPLACEMENT RX ASSESSMENT/PLAN: Elio Alvarado is a 68 year old male with a past medical history of hypertension, diabetes mellitus (insulin dependent), multiple myeloma (daratumumab), CHF, hepatitis C (received treatment) admited for bilateral lower extremity wounds requiring IV antibiotics. Bilateral lower extremity wounds - Radiographs of the lower extremities reveal no acute free air. - ESR 90, CRP 4.5, monitor in 4 days to determine if antibiotics improve state - continue vancomycin and Zosyn - ID consulted, will continue antibiotics pending recs, will likely need jail abx in the setting of osteomyelitis as noted on MRI below - MRI bilateral lower extremities to evaluate for osteomyelitis noting R side minimal edema of the R medial malleolus may be related to early osteomyelitis. No changes on the L side. - Arterial duplex bilateral lower extremities noting no definite flow in the R popliteal artery with occlusion or very severe stenosis with monophasic flow within the sueprficial fem and posterior tibial arteries, L leg noting monophasic flow within the popliteal and posterior tibial arteries - Duplex lower extremities negative for acute DVT - Wound care consulted, recs appreciated - will require hydration prior to angiogram - Podiatry consulted, recs appreciated Elevated alkaline phosphatase - GGT normal - alk phos improving - MRI suggestive of early osteo Diabetes mellitus - HgbA1c 10.8 - Insulin Levemir 30units subq HS - ISS ACHS - BGM ACHS History of CHF - BNP 445 - Echo noting normal LV and RV, trace tricuspid regurg - Lasix 40mg IV daily Hypertension - Continue Diltiazem 24mg PO daily Chronic kidney disease - Cr 1.6; at baseline - renal U/S with no definite renal abnormalities History of polysubstance abuse - Former Heroine, Cocaine Last use 20 years ago - Methadone dose 85mg confirmed through [facility] Nicotine Depenence - Counselled regarding smoking cessation - Nicotine patch 21 grams TD daily - Nicotine gum PRN Hepatitis C - Patient has received treatment, continue outpatient follow up with Dr. Munoz. Multiple Myeloma - Stable, receiving therapy with Daratummab, followed by Oncologist Dr. Forbes. FEN - no standing fluids - continue to monitor electrolytes and replete as necessary - Sodium modified diabetic diet Prophylaxis - Heparin 5000 units subq TID Disposition - continue to monitor on Med-surg Visit type - Emergency Visit Emergency Visit: Yes ED Registration Date: 07/10/19 Care time: The patient presented to the Emergency Department on the above date and was hospitalized for further evaluation of their emergent condition. - New Patient This patient is new to me today: No - Critical Care Critical Care patient: No
[2019-07-12 07:52] LABS: BASO % 0.4 % (0-2.0); HEMATOCRIT 25.8 % (35.4-49); HEMOGLOBIN 8.4 GM/dL (11.7-16.9); LYMPH % 34.7 % (8-40); MCH 28.5 pg (25.7-33.7); MCHC 32.6 g/dl (32.0-35.9); MEAN CELL VOLUME 87.6 fl (80-96); MEAN PLT VOLUME 7.8 fl (7.5-11.1); MONO % 12.2 % (3.8-10.2); NEUT % 51.7 % (42.8-82.8); PLATELET COUNT 159 K/MM3 (134-434); RBC 2.94 M/mm3 (4.00-5.60); WHITE BLOOD COUNT 6.2 K/mm3 (4.0-10.0)
[2019-07-12 08:23] LABS: BILIRUBIN,TOTAL 0.3 mg/dL (0.2-1); BLOOD UREA NITROGEN 30.7 mg/dL (7-18); CALCIUM 8.1 mg/dL (8.5-10.1); CREATININE 1.6 mg/dL (0.55-1.3); MAGNESIUM 1.8 mg/dL (1.8-2.4); POTASSIUM 3.7 mmol/L (3.5-5.1)
[2019-07-12] MEDS ORDERED: PT OWN MED DRAWER 7, Y5N ONE ×2 (09:11→18:59)
[2019-07-12] MEDS: FUROSEMIDE 40 MG/4 ML INJECTABLE VIAL IVPUSH SCH (09:33)
[2019-07-12] MEDS: MULTIVITAMINS THER W-MINERALS COMBO TABLET (FP) PO SCH (09:34)
[2019-07-12] MEDS: NICOTINE 21 MG/24 HOURS TOPICAL PATCH TD SCH (09:34)
--- NOTE | 2019-07-12 14:43 | PN ---
Teaching Attending Note Name of Resident: Gama Alvarado ATTENDING PHYSICIAN STATEMENT I saw and evaluated the patient. I reviewed the resident's note and discussed the case with the resident. I agree with the resident's findings and plan as documented. Seen and examined; please see resident note for further historical information. I personally verified all [place] historical information and exam findings. Personally interpreted all imaging and diagnostics and reviewed appropriate consults. I reviewed all labs and vital signs as per resident note and EMR as documented. I agree with the above assessment and plan unless supplemented by myself in the following. MRI was completed, reveals extensive bilateral cellulitis with potential osteomyelitis and its early forms along the medial malleolus. Podiatry and vascular surgery are aware, awaiting further input. Patient is hemodynamically stable and afebrile. Pain is controlled. He states that he has less oozing from his wounds. Overall he will require potential debridement and long-term antibiotics with pack and likely placement. He has underlying peripheral arterial disease which will make wound healing exquisitely difficult. 10 item review of systems completed and is negative aside from history of present illness VS, labs, imaging reviewed NAD, AAO, resting comfortably in bed. RRR s1/2 no mgr Normal muscle tone, moves all 5 extremities with normal apparent strength Neck is supple, trachea midline, no nikole LN Lungs CTAB with sym expansion NT ND +BS no nikole organomegaly CN2-12 wnl; no FND NC AT EOMI PERRLA Normal mood, appropriate behavior, euthymic affect Cellulitic area appears unchanged from yesterday's exam, does not track to bone in any places, stereotyped changes of peripheral arterial disease. MRI reports discussed above ASSESSMENT AND PLAN: Patient presents for cellulitis/early osteomyelitis of the bilateral lower extremities with underlying moderate to severe peripheral arterial disease. Podiatry and vascular surgery are following. Main stable on the medicine service. We will continue current antibiotics as per infectious disease, is at exceptionally high risk due to his underlying Ligman C and diabetes. Appreciate all expert opinion. Problems include: Osteomyelitis of the malleolus, likely early Rest of problem list unchanged from yesterday's. Disposition will be elucidated after final antibiotic course and potential for procedural intervention is determined. Full code
--- NOTE | 2019-07-12 15:38 | PN ---
Progress Note (short form) - Note Progress Note: VAscular surgery Pt seen and examined. Right medial mallelous ulcer. Arterial US shows right popliteal artery stenosis/occlusion. MRI shows possible early osteo. Can do angiogram on pt once he is cleared.
--- NOTE | 2019-07-12 15:42 | PN ---
Progress Note (short form) - Note Progress Note: Vascular Surgery Pt seen and examined. Right medial mallelous ulcer. Arterial duplex shows right popliteal artery stenosis vs occlusion. Cont santyl to all wounds. Pt will need angiogram of RLE next week. PLease medically clear. please hydrate pt over the weekend for Cr of 1.6. Can also do with CO2. MRI shows early osteo. Jayjay Le DO
[2019-07-12] MEDS: VANCOMYCIN 1 GRAM (PRE-DOCKED) 1,000 MG/250 ML BAG IVPB SCH (16:47)
--- NOTE | 2019-07-12 17:18 | PN ---
Progress Note, Physician History of Present Illness: AWAKE IN BED C/O BILATERAL LE PAIN WOUNDS DRY MRI DONE RESULTS PENDING AFEBRILE - Current Medication List Current Medications: Active Medications Diltiazem HCl (Cardizem Cd -) 240 mg PO DAILY [facility] Last Admin: 07/12/19 09:34 Dose: 240 mg Furosemide (Lasix Injection -) 40 mg IVPUSH DAILY [facility] Last Admin: 07/12/19 09:33 Dose: 40 mg Piperacillin Sod/Tazobactam (Sod 3.375 gm/ Dextrose) 50 mls @ 100 mls/hr IVPB Q8H-IV FREDDY; Protocol Last Admin: 07/12/19 09:33 Dose: 100 mls/hr Vancomycin HCl (Vancomycin (Pre-Docked)) 1,000 mg in 250 mls @ 166.667 mls/hr IVPB DAILY@1700 [facility]; Protocol Last Admin: 07/12/19 16:47 Dose: 166.667 mls/hr Insulin Aspart (Novolog Vial Sliding Scale -) 1 vial SQ ACHS [facility]; Protocol Insulin Detemir (Levemir Vial) 30 units SQ HS [facility] Last Admin: 07/11/19 21:19 Dose: 30 units Methadone HCl 80 mg/ Methadone (HCl 5 mg) 85 mg PO 0600 [facility] Last Admin: 07/12/19 06:02 Dose: 85 mg Multivitamins/Minerals (Theragran-M) 1 each PO DAILY [facility] Last Admin: 07/12/19 09:34 Dose: 1 each Nicotine (Nicoderm Patch -) 21 mg TD DAILY [facility] Last Admin: 07/12/19 09:34 Dose: 21 mg Nicotine Polacrilex (Nicorette Gum -) 4 mg BUC Q2H PRN PRN Reason: NICOTINE REPLACEMENT RX - Objective Vital Signs: Vital Signs Temperature 97.9 F 07/12/19 09:33 Pulse Rate 87 07/12/19 09:33 Respiratory Rate 18 07/12/19 09:33 Blood Pressure 150/69 07/12/19 09:33 O2 Sat by Pulse Oximetry (%) 98 07/11/19 21:00 Constitutional: Yes: No Distress Eyes: Yes: Conjunctiva Clear Cardiovascular: Yes: Regular Rate and Rhythm, S1, S2 Respiratory: Yes: CTA Bilaterally Gastrointestinal: Yes: Normal Bowel Sounds, Soft, Abdomen, Obese. No: Tenderness Extremities: Yes: Other (+ ERYTHEMA/ WARMTH LE BILAT DRY ULCERS CHRONIC STASIS DERMATITIS) Integumentary: Yes: Other (PORT SITE NO ERYTHEMA) Labs: CBC, BMP 07/12/19 07:15 07/12/19 07:15 INR, PTT INR 1.04 (0.83-1.09) 07/10/19 11:45 Assessment/Plan BILAT LE CELLULITIS/ INFECTED ULCERS CHRONIC VENOUS STASIS DERMATITIS MYELOMA ON IMMUNO THERAPY WOUND C/S NOTED SUBSTITUTE UNASYN CONTINUE ELEVATION, LOCAL CARE
--- NOTE | 2019-07-12 18:13 | PN ---
Progress Note (short form) - Note Progress Note: Patient is a 68 year old male with history of hypertension, diabetes mellitus ( insulin dependent), multiple myeloma (daratumumab), CHF, hepatitis C (received treatment) presents with complaint of lower extremity pain. Patient endorses right lower extremity would that began approx one month ago, and left lower extremity would that began approx 6 months ago. States that he had MRI done yesterday as well. O: B/l non palpable pedal pulses, severe b/l lymphedema/pitting edema noted, RLE cellulitis/dermatitis throughout the lower extremity, right medial malleolus ankle ulceration with overlying eschar noted, no acute bone exposed, left anterior ankle ulceration, no erythema, gross serous drainage noted, no purulence noted A: RLE medial mall osteo, PVD P: Evaluated and reviewed Discussed findings with the patient For angio with vascular early next week Given findings of early osteo in the mall if biopsy is needed will need to consult gen surg/ortho since in tibia Continue local wound care Podiatry with no acute interventions at this time Will loosely follow.
[2019-07-12] MEDS: AMPICILLIN NA/SULBACTAM NA 3 GM in SODIUM CHLORIDE 100 ML IVPB SCH (19:02)
[2019-07-12] MEDS: INSULIN (LEVEMIR) 100 UNITS/ML UNITS SQ SCH (21:24)
[2019-07-13] MEDS: AMPICILLIN NA/SULBACTAM NA 3 GM in SODIUM CHLORIDE 100 ML IVPB SCH ×3 (01:26→17:29)
[2019-07-13] MEDS ORDERED: METHADONE HCL 40 MG DISPERSABLE TABLET ONE (05:46)
[2019-07-13] MEDS ORDERED: METHADONE HCL 5 MG TABLET ONE (05:46)
[2019-07-13] MEDS: METHADONE 80 MG, METHADONE 5 MG PO SCH (06:04)
[2019-07-13] MEDS: INSULIN SLIDING SCALE (NOVOLOG) 1 VIAL SQ SCH ×4 (06:05→21:07)
[2019-07-13 07:33] LABS: BASO % 0.3 % (0-2.0); EOS % 1.1 % (0-4.5); HEMATOCRIT 26.2 % (35.4-49); HEMOGLOBIN 8.7 GM/dL (11.7-16.9); LYMPH % 35.7 % (8-40); MCH 28.9 pg (25.7-33.7); MEAN CELL VOLUME 87.4 fl (80-96); MEAN PLT VOLUME 7.9 fl (7.5-11.1); MONO % 11.6 % (3.8-10.2); NEUT % 51.3 % (42.8-82.8); PLATELET COUNT 163 K/MM3 (134-434); RDW 14.1 % (11.9-15.9); WHITE BLOOD COUNT 6.3 K/mm3 (4.0-10.0)
[2019-07-13 08:14] LABS: BILIRUBIN,TOTAL 0.1 mg/dL (0.2-1); BLOOD UREA NITROGEN 33.4 mg/dL (7-18); CALCIUM 8.1 mg/dL (8.5-10.1); CREATININE 1.6 mg/dL (0.55-1.3); MAGNESIUM 1.9 mg/dL (1.8-2.4); POTASSIUM 3.9 mmol/L (3.5-5.1); TOT PROT 6.1 g/dl (6.4-8.2)
[2019-07-13] MEDS ORDERED: PT OWN MED DRAWER 7, Y5N ONE ×3 (09:08→17:21)
[2019-07-13] MEDS: FUROSEMIDE 40 MG/4 ML INJECTABLE VIAL IVPUSH SCH (09:34)
[2019-07-13] MEDS: NICOTINE 21 MG/24 HOURS TOPICAL PATCH TD SCH (09:34)
[2019-07-13] MEDS: MULTIVITAMINS THER W-MINERALS COMBO TABLET (FP) PO SCH (09:34)
--- NOTE | 2019-07-13 16:17 | PN ---
Physical Exam: SUBJECTIVE: Patient seen and examined. He has no complaints. OBJECTIVE: Vital Signs Period Temp Pulse Resp BP Sys/[place] Pulse Ox Last 24 Hr 97.5 F-98.8 F 80-87 18-20 124-147/70-75 95-95 GENERAL: The patient is awake, alert, and fully oriented, in no acute distress. LUNGS: Breath sounds equal, clear to auscultation bilaterally, no wheezes, no crackles, no accessory muscle use. HEART: Regular rate and rhythm, S1, S2 without murmur, rub or gallop. ABDOMEN: Obese, soft, nontender, nondistended, normoactive bowel sounds, no guarding, no rebound, no hepatosplenomegaly, no masses. EXTREMITIES: 2+ edema, chronic changes, ankles wrapped. Laboratory Results - last 24 hr 07/12/19 07/12/19 07/13/19 17:30 21:22 06:03 WBC RBC Hgb Hct MCV MCH MCHC RDW Plt Count MPV Absolute Neuts (auto) Neutrophils % Lymphocytes % Monocytes % Eosinophils % Basophils % Nucleated RBC % Sodium Potassium Chloride Carbon Dioxide Anion Gap BUN Creatinine Est GFR (CKD-EPI)AfAm Est GFR (CKD-EPI)NonAf POC Glucometer 348 264 197 Random Glucose Calcium Magnesium Total Bilirubin AST ALT Alkaline Phosphatase Total Protein Albumin 07/13/19 07/13/19 07/13/19 06:30 06:30 11:06 WBC 6.3 RBC 3.00 L Hgb 8.7 L Hct 26.2 L MCV 87.4 MCH 28.9 MCHC 33.0 RDW 14.1 Plt Count 163 MPV 7.9 Absolute Neuts (auto) 3.2 Neutrophils % 51.3 Lymphocytes % 35.7 Monocytes % 11.6 H Eosinophils % 1.1 Basophils % 0.3 Nucleated RBC % 0 Sodium 138 Potassium 3.9 Chloride 104 Carbon Dioxide 27 Anion Gap 7 L BUN 33.4 H Creatinine 1.6 H Est GFR (CKD-EPI)AfAm 50.20 Est GFR (CKD-EPI)NonAf 43.31 POC Glucometer 169 Random Glucose 181 H Calcium 8.1 L Magnesium 1.9 Total Bilirubin 0.1 L AST 13 L ALT 20 Alkaline Phosphatase 134 H Total Protein 6.1 L Albumin 3.0 L Active Medications Generic Name Dose Route Start Last Admin Trade Name Freq PRN Reason Stop Dose Admin Diltiazem HCl 240 mg 07/11/19 10:00 07/13/19 09:34 Cardizem Cd - PO 240 mg DAILY FREDDY Administration Furosemide 40 mg 07/11/19 10:00 07/13/19 09:34 Lasix Injection - IVPUSH 40 mg DAILY FREDDY Administration Ampicillin Sodium/Sulbactam 100 mls @ 200 mls/hr 07/12/19 18:00 07/13/19 09: 33 Sodium 3 gm/ Sodium Chloride IVPB 200 mls/hr Q8H-IV FREDDY Administration Insulin Aspart 1 vial 07/12/19 16:30 07/13/19 11:07 Novolog Vial Sliding Scale - SQ 2 units ACHS FREDDY Administration Protocol Insulin Detemir 30 units 07/10/19 22:00 07/12/19 21:24 Levemir Vial SQ 30 units HS FREDDY Administration Methadone HCl 80 mg/ Methadone 85 mg 07/11/19 09:15 07/13/19 06:04 HCl 5 mg PO 85 mg 0600 FREDDY Administration Multivitamins/Minerals 1 each 07/11/19 10:00 07/13/19 09:34 Theragran-M PO 1 each DAILY FREDDY Administration Nicotine 21 mg 07/10/19 18:00 07/13/19 09:34 Nicoderm Patch - TD 21 mg DAILY FREDDY Administration Nicotine Polacrilex 4 mg 07/10/19 17:51 Nicorette Gum - BUC Q2H PRN NICOTINE REPLACEMENT RX ASSESSMENT/PLAN: This is a 68 year old man with a history of HTN, type 2 DM, multiple myeloma, chronic diastolic heart failure, hepatitis C, substance abuse who presented to the ED with bilateral lower extremity wounds. 1. Bilateral lower extremity ulcers with cellulitis and early osteomyelitis of right medial malleolus - MRI shows early osteomyelitis of right medial malleolus - Zosyn, Vancomycin changed to Unasyn 2. PAD - Arterial duplex bilateral lower extremities noting no definite flow in the R popliteal artery with occlusion or very severe stenosis with monophasic flow within the superficial femoral and posterior tibial arteries, L leg noting monophasic flow within the popliteal and posterior tibial arteries - Plan for RLE angiogram next week - IV fluid prior to angiogram 3. HTN - Continue Cardizem CD - Hold Lasix prior to angiogram 4. Chronic diastolic heart failure - Stable - Hold Lasix prior to angiogram 5. Type 2 DM - Continue Levemir, Novolog sliding scale 6. Stage 3 CKD - Stable - IV fluid prior to angiogram 7. Opioid dependence - Continue Methadone 8. Nicotine dependence - Continue nicotine patch 9. Hepatitis C - Previously treated 10. Multiple myeloma - On daratumumab 11. Anemia - Likely secondary to chronic illness - Hemoglobin stable Visit type - Emergency Visit Emergency Visit: Yes ED Registration Date: 07/10/19 Care time: The patient presented to the Emergency Department on the above date and was hospitalized for further evaluation of their emergent condition. - New Patient This patient is new to me today: Yes Date on this admission: 07/13/19 - Critical Care Critical Care patient: No - Discharge Referral Referred to [facility] Med P.C.: No
[2019-07-13] MEDS: SODIUM CHLORIDE 1,000 ML IV SCH (18:12)
[2019-07-13] MEDS ORDERED: INSULIN (NOVOLOG) ASPART 100 UNITS/ML 10ML VIAL ONE (20:39)
[2019-07-13] MEDS ORDERED: MAG HYDROX/AL HYDROX/SIMETH 30 ML UNIT-DOSE CUP PO ONE (20:42)
[2019-07-13] MEDS: INSULIN (LEVEMIR) 100 UNITS/ML UNITS SQ SCH (21:08)
[2019-07-14] MEDS: AMPICILLIN NA/SULBACTAM NA 3 GM in SODIUM CHLORIDE 100 ML IVPB SCH ×3 (01:36→17:11)
[2019-07-14] MEDS ORDERED: METHADONE HCL 5 MG TABLET ONE (05:49)
[2019-07-14] MEDS ORDERED: METHADONE HCL 40 MG DISPERSABLE TABLET ONE (05:50)
[2019-07-14] MEDS: METHADONE 80 MG, METHADONE 5 MG PO SCH (05:55)
[2019-07-14] MEDS: INSULIN SLIDING SCALE (NOVOLOG) 1 VIAL SQ SCH ×4 (06:01→21:52)
[2019-07-14 08:09] LABS: HEMATOCRIT 26.3 % (35.4-49); HEMOGLOBIN 8.5 GM/dL (11.7-16.9); MCH 28.5 pg (25.7-33.7); MCHC 32.4 g/dl (32.0-35.9); MEAN CELL VOLUME 87.8 fl (80-96); MEAN PLT VOLUME 7.7 fl (7.5-11.1); PLATELET COUNT 168 K/MM3 (134-434); RBC 2.99 M/mm3 (4.00-5.60); RDW 13.6 % (11.9-15.9); WHITE BLOOD COUNT 5.9 K/mm3 (4.0-10.0)
[2019-07-14 08:18] LABS: BLOOD UREA NITROGEN 28.8 mg/dL (7-18); CALCIUM 7.8 mg/dL (8.5-10.1); CREATININE 1.4 mg/dL (0.55-1.3); MAGNESIUM 1.9 mg/dL (1.8-2.4)
[2019-07-14] MEDS: NICOTINE 21 MG/24 HOURS TOPICAL PATCH TD SCH (09:21)
[2019-07-14] MEDS: MULTIVITAMINS THER W-MINERALS COMBO TABLET (FP) PO SCH (09:21)
--- NOTE | 2019-07-14 09:22 | PN ---
Physical Exam: SUBJECTIVE: Patient seen and examined at the bedside. States that he feels better, endorses that his leg pain has improved. Endorses good appetite. Denies cp, sob, abd pain, n/v/c/d, fever, chills, headaches, dizziness, lightheadedness , numbness, tingling, weakness. OBJECTIVE: Vital Signs Period Temp Pulse Resp BP Sys/Gamboa Pulse Ox Last 24 Hr 97.2 F-98.1 F 83-87 18-20 125-146/67-71 95 GENERAL: The patient is awake, alert, and fully oriented, in no acute distress. HEAD: Normal with no signs of trauma. EYES: PERRL, extraocular movements intact, sclera anicteric, conjunctiva clear. ENT: Oropharynx clear without exudates, moist mucous membranes. NECK: Trachea midline, full range of motion, supple. LUNGS: Breath sounds equal, clear to auscultation bilaterally, no wheezes, no crackles, no accessory muscle use. HEART: Regular rate and rhythm, S1, S2 without murmur, rub. ABDOMEN: Soft, nontender, nondistended, normoactive bowel sounds, no guarding, no rebound, no masses. EXTREMITIES: poorly palpated pulses pulses, warm, well-perfused, 2+ edema bilaterally. NEUROLOGICAL: Cranial nerves II through XII grossly intact. 5/5 muscle strength upper and lower extremities bilaterally. PSYCH: Normal mood, normal affect. SKIN: Two ulcers anterior aspect right ankle (2.5 x 2.5 cm, 2cm x 3cm). Left anterior ankle ulcer (2cm x 1.5cm). Lower extremity thickened skin with stasis dermatitis changes. Laboratory Results - last 24 hr 07/13/19 07/13/19 07/13/19 11:06 17:11 21:06 WBC RBC Hgb Hct MCV MCH MCHC RDW Plt Count MPV Sodium Potassium Chloride Carbon Dioxide Anion Gap BUN Creatinine Est GFR (CKD-EPI)AfAm Est GFR (CKD-EPI)NonAf POC Glucometer 169 165 229 Random Glucose Calcium Magnesium 07/14/19 07/14/19 07/14/19 05:57 06:00 06:40 WBC 5.9 RBC 2.99 L Hgb 8.5 L Hct 26.3 L MCV 87.8 MCH 28.5 MCHC 32.4 RDW 13.6 Plt Count 168 MPV 7.7 Sodium 140 Potassium 4.0 Chloride 106 Carbon Dioxide 26 Anion Gap 7 L BUN 28.8 H Creatinine 1.4 H Est GFR (CKD-EPI)AfAm 58.99 Est GFR (CKD-EPI)NonAf 50.90 POC Glucometer 130 Random Glucose 110 H Calcium 7.8 L Magnesium 1.9 Active Medications Generic Name Dose Route Start Last Admin Trade Name Freq PRN Reason Stop Dose Admin Diltiazem HCl 240 mg 07/11/19 10:00 07/13/19 09:34 Cardizem Cd - PO 240 mg DAILY FREDDY Administration Ampicillin Sodium/Sulbactam 100 mls @ 200 mls/hr 07/12/19 18:00 07/14/19 01: 36 Sodium 3 gm/ Sodium Chloride IVPB 200 mls/hr Q8H-IV FREDDY Administration Sodium Chloride 1,000 mls @ 42 mls/hr 07/13/19 17:45 07/13/19 18:12 Normal Saline - IV 42 mls/hr ASDIR FREDDY Administration Insulin Aspart 1 vial 07/12/19 16:30 07/14/19 06:01 Novolog Vial Sliding Scale - SQ Not Given ACHS [facility] Protocol Insulin Detemir 30 units 07/10/19 22:00 07/13/19 21:08 Levemir Vial SQ 30 units HS FREDDY Administration Methadone HCl 80 mg/ Methadone 85 mg 07/11/19 09:15 07/14/19 05:55 HCl 5 mg PO 85 mg 0600 FREDDY Administration Multivitamins/Minerals 1 each 07/11/19 10:00 07/13/19 09:34 Theragran-M PO 1 each DAILY FREDDY Administration Nicotine 21 mg 07/10/19 18:00 07/13/19 09:34 Nicoderm Patch - TD 21 mg DAILY FREDDY Administration Nicotine Polacrilex 4 mg 07/10/19 17:51 Nicorette Gum - BUC Q2H PRN NICOTINE REPLACEMENT RX ASSESSMENT/PLAN: Elio Alvarado is a 68 year old male with a past medical history of hypertension, diabetes mellitus (insulin dependent), multiple myeloma (daratumumab), CHF, hepatitis C (received treatment) admited for bilateral lower extremity wounds requiring IV antibiotics. Bilateral lower extremity wounds - Radiographs of the lower extremities reveal no acute free air. - ESR 90, CRP 4.5, repeat tomorrow - continue Unasyn, as per ID, will likely need group home abx in the setting of osteomyelitis as noted on MRI below - ID consulted, recs appreciated - MRI bilateral lower extremities to evaluate for osteomyelitis noting R side minimal edema of the R medial malleolus may be related to early osteomyelitis. No changes on the L side. - Arterial duplex bilateral lower extremities noting no definite flow in the R popliteal artery with occlusion or very severe stenosis with monophasic flow within the sueprficial fem and posterior tibial arteries, L leg noting monophasic flow within the popliteal and posterior tibial arteries - Wound care consulted, recs appreciated - will require hydration prior to angiogram, angio to be done this week - Podiatry consulted, recs appreciated - Duplex lower extremities negative for acute DVT - gabapentin 300mg tid for pain Elevated alkaline phosphatase - GGT normal - alk phos improving - MRI suggestive of early osteo Diabetes mellitus - HgbA1c 10.8 - Insulin Levemir 30units subq HS - ISS ACHS - BGM ACHS - dietary consulted for teaching History of CHF - BNP 445 - Echo noting EF 60-65%, normal LV and RV, trace tricuspid regurg Hypertension - Continue Diltiazem 240mg PO daily Chronic kidney disease - CRE today improved to 1.4 - continue hydration prior to angio, NS at 42cc/hr - renal U/S with no definite renal abnormalities Anemia - likely anemia of chronic disease - obtaining iron studies for further analysis History of polysubstance abuse - Former Heroine, Cocaine Last use 20 years ago - Methadone dose 85mg confirmed through [place] [facility] Nicotine Depenence - Counselled regarding smoking cessation - Nicotine patch 21 grams TD daily - Nicotine gum PRN Hepatitis C - Patient has received treatment, continue outpatient follow up with Dr. Munoz. Multiple Myeloma - Stable, receiving therapy with Daratummab, followed by Oncologist Dr. Forbes. - will need discussion with oncologist in the setting of IV antibiotic administration FEN - NS at 42cc/hr, caution with fluids due to history of CHF, close respiratory status monitoring - continue to monitor electrolytes and replete as necessary - Sodium modified diabetic diet Prophylaxis - Heparin 5000 units subq TID Disposition - continue to monitor on Med-surg Visit type - Emergency Visit Emergency Visit: Yes ED Registration Date: 07/10/19 Care time: The patient presented to the Emergency Department on the above date and was hospitalized for further evaluation of their emergent condition. - New Patient This patient is new to me today: No - Critical Care Critical Care patient: No
[2019-07-14] MEDS ORDERED: PT OWN MED DRAWER 7, Y5N ONE ×2 (10:38→21:41)
--- NOTE | 2019-07-14 10:47 | PN ---
Teaching Attending Note Name of Resident: Gama Alvarado ATTENDING PHYSICIAN STATEMENT I saw and evaluated the patient. I reviewed the resident's note and discussed the case with the resident. I agree with the resident's findings and plan as documented. Saw and evaluated the patient. I reviewed the resident's note and discussed the case with the resident. I agree with the resident's findings and plan as documented. Seen and examined; please see resident note for further historical information. I personally verified all [place] historical information and exam findings. Personally interpreted all imaging and diagnostics and reviewed appropriate consults. I reviewed all labs and vital signs as per resident note and EMR as documented. I agree with the above assessment and plan unless supplemented by myself in the following Pain is controlled but endorses some chronic neuropathic issues. Not any gabapentin, no further complaints. Counseled regarding overall clinical presentation regarding the nature of his disease and neuropathy. 10 item review of systems completed and is negative aside from history of present illness VS, labs, imaging reviewed NAD, AAO, resting comfortably in bed. RRR s1/2 no mgr Normal muscle tone, moves all 5 extremities with normal apparent strength Neck is supple, trachea midline, no nikole LN Lungs CTAB with sym expansion NT ND +BS no nikole organomegaly CN2-12 wnl; no FND NC AT EOMI PERRLA Normal mood, appropriate behavior, euthymic affect Cellulitic area appears unchanged from yesterday's exam, does not track to bone in any places, stereotyped changes of peripheral arterial disease. MRI reports discussed above Arterial ultrasounds noted ASSESSMENT AND PLAN: Patient presents for cellulitis/early osteomyelitis of the bilateral lower extremities with underlying moderate to severe peripheral arterial disease. Podiatry and vascular surgery are following. Main stable on the medicine service. We will continue current antibiotics as per infectious disease, is at exceptionally high risk due to his underlying Ligman C and diabetes. Appreciate all expert opinion. 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 History of diabetes mellitus, continue current insulin coverage Full code Disposition will be elucidated after final antibiotic course and potential for procedural intervention is determined. Full code
[2019-07-14] MEDS: GABAPENTIN 300 MG CAPSULE PO SCH ×2 (13:04→21:55)
[2019-07-14] MEDS: INSULIN (LEVEMIR) 100 UNITS/ML UNITS SQ SCH (21:54)
[2019-07-15] MEDS ORDERED: PT OWN MED DRAWER 7, Y5N ONE ×2 (01:18→09:12)
[2019-07-15] MEDS: AMPICILLIN NA/SULBACTAM NA 3 GM in SODIUM CHLORIDE 100 ML IVPB SCH ×3 (02:14→17:10)
[2019-07-15] MEDS ORDERED: METHADONE HCL 5 MG TABLET ONE (06:03)
[2019-07-15] MEDS ORDERED: METHADONE HCL 40 MG DISPERSABLE TABLET ONE (06:04)
[2019-07-15] MEDS: SODIUM CHLORIDE 1,000 ML IV SCH (06:07)
[2019-07-15] MEDS: METHADONE 80 MG, METHADONE 5 MG PO SCH (06:08)
[2019-07-15] MEDS: GABAPENTIN 300 MG CAPSULE PO SCH ×3 (06:08→21:01)
[2019-07-15] MEDS: INSULIN SLIDING SCALE (NOVOLOG) 1 VIAL SQ SCH ×4 (06:25→21:02)
[2019-07-15 08:29] LABS: BASO % 0.3 % (0-2.0); EOS % 1.8 % (0-4.5); HEMATOCRIT 25.2 % (35.4-49); HEMOGLOBIN 8.5 GM/dL (11.7-16.9); LYMPH % 38.8 % (8-40); MCH 29.5 pg (25.7-33.7); MCHC 33.7 g/dl (32.0-35.9); MEAN CELL VOLUME 87.4 fl (80-96); MEAN PLT VOLUME 7.6 fl (7.5-11.1); MONO % 11.5 % (3.8-10.2); NEUT % 47.6 % (42.8-82.8); PLATELET COUNT 178 K/MM3 (134-434); RBC 2.88 M/mm3 (4.00-5.60); RDW 13.4 % (11.9-15.9); WHITE BLOOD COUNT 5.6 K/mm3 (4.0-10.0)
[2019-07-15 08:47] LABS: BLOOD UREA NITROGEN 26.8 mg/dL (7-18); CALCIUM 7.9 mg/dL (8.5-10.1); CREATININE 1.2 mg/dL (0.55-1.3); MAGNESIUM 1.8 mg/dL (1.8-2.4); POTASSIUM 3.9 mmol/L (3.5-5.1)
[2019-07-15] MEDS: NICOTINE 21 MG/24 HOURS TOPICAL PATCH TD SCH (09:52)
[2019-07-15] MEDS: MULTIVITAMINS THER W-MINERALS COMBO TABLET (FP) PO SCH (09:52)
[2019-07-15 11:11] LABS: ERYTHROCYTE SEDIMENTATION RATE 85 mm/hr (0-20)
--- NOTE | 2019-07-15 11:27 | PN ---
Teaching Attending Note Name of Resident: Brent Andino ATTENDING PHYSICIAN STATEMENT I saw and evaluated the patient. I reviewed the resident's note and discussed the case with the resident. I agree with the resident's findings and plan as documented. Consulting cardiology for preoperative clearance for angiogram with Dr. Le. Patient is doing well with no cardiac complaints today, denies any shortness of breath, etc. etc. LVEF on the 07/11/2019 echo as discussed in previous notes was 6065% with no atrial enlargement and no significant valvulopathy's. The patient is noted to have EKG with normal sinus rhythm and no ischemic changes. RCRI score and Purcell score is noted. Patient would be at intermediate risk for the vascular procedure given his known risk factors. 10 item review of systems completed and is negative aside from as discussed in the subjective data in my own/the resident documentation. VS, labs, imaging reviewed NAD, AAO, resting comfortably in bed. RRR s1/2 no mgr Normal muscle tone, moves all 5 extremities with normal apparent strength Neck is supple, trachea midline, no nikole LN Lungs CTAB with sym expansion NT ND +BS no nikole organomegaly CN2-12 wnl; no FND NC AT EOMI PERRLA Normal mood, appropriate behavior, euthymic affect No skin breakdown or rashes noted No further diagnostics, awaiting vascular surgery consultation angiography planning ASSESSMENT AND PLAN: Patient remained stable on the floor, he has potential osteomyelitis and vascular disease identified on arterial ultrasound and is pending vascular procedure. He will follow-up, obtain cardiac clearance, and continue to monitor him symptomatically. His presenting symptoms are improved and he is in good spirits and is happy with the care he received and all questions were answered. 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 History of diabetes mellitus, continue current insulin coverage Full Code
--- NOTE | 2019-07-15 11:37 | PN ---
Physical Exam: SUBJECTIVE: Patient seen and examined at bedside. No acute events overnight. Denies any fever, chills, tenderness, weakness, abd pain, nausea, vomiting. OBJECTIVE: Vital Signs Period Temp Pulse Resp BP Sys/[place] Pulse Ox Last 24 Hr 97.6 F-98.4 F 79-86 18-20 120-151/68-73 96-99 GENERAL: The patient is awake, alert, and fully oriented, in no acute distress. NECK: Trachea midline, full range of motion, supple. LUNGS: Breath sounds equal, clear to auscultation bilaterally, no wheezes, no crackles, no accessory muscle use. HEART: Regular rate and rhythm, S1, S2 without murmur, rub or gallop. ABDOMEN: Soft, nontender, nondistended, normoactive bowel sounds, no guarding, no rebound. EXTREMITIES: 1+ pulses b/l, edematous b/l, warm, treebark appearance on b/l LE' s worse on right leg. right leg ulcers on medial malleolus, cellulitis on left leg PSYCH: Normal mood, normal affect. SKIN: Two ulcers anterior aspect right ankle (2.5 x 2.5 cm, 2cm x 3cm). Left anterior ankle ulcer (2cm x 1.5cm). Lower extremity thickened skin with stasis dermatitis changes. Laboratory Results - last 24 hr 07/14/19 07/14/19 07/15/19 17:10 21:52 06:24 WBC RBC Hgb Hct MCV MCH MCHC RDW Plt Count MPV Absolute Neuts (auto) Neutrophils % Lymphocytes % Monocytes % Eosinophils % Basophils % Nucleated RBC % ESR Sodium Potassium Chloride Carbon Dioxide Anion Gap BUN Creatinine Est GFR (CKD-EPI)AfAm Est GFR (CKD-EPI)NonAf POC Glucometer 134 252 75 Random Glucose Calcium Magnesium C-Reactive Protein 07/15/19 07/15/19 07:22 07:22 WBC 5.6 RBC 2.88 L Hgb 8.5 L Hct 25.2 L MCV 87.4 MCH 29.5 MCHC 33.7 RDW 13.4 Plt Count 178 MPV 7.6 Absolute Neuts (auto) 2.7 Neutrophils % 47.6 Lymphocytes % 38.8 Monocytes % 11.5 H Eosinophils % 1.8 Basophils % 0.3 Nucleated RBC % 0 ESR 85 H Sodium 140 Potassium 3.9 Chloride 109 H Carbon Dioxide 26 Anion Gap 4 L BUN 26.8 H Creatinine 1.2 Est GFR (CKD-EPI)AfAm 71.08 Est GFR (CKD-EPI)NonAf 61.33 POC Glucometer Random Glucose 67 L Calcium 7.9 L Magnesium 1.8 C-Reactive Protein 1.2 H Active Medications Generic Name Dose Route Start Last Admin Trade Name Freq PRN Reason Stop Dose Admin Diltiazem HCl 240 mg 07/11/19 10:00 07/15/19 09:52 Cardizem Cd - PO 240 mg DAILY FREDDY Administration Gabapentin 300 mg 07/14/19 14:00 07/15/19 06:08 Neurontin - PO 300 mg TID FREDDY Administration Ampicillin Sodium/Sulbactam 100 mls @ 200 mls/hr 07/12/19 18:00 07/15/19 11: 31 Sodium 3 gm/ Sodium Chloride IVPB 200 mls/hr Q8H-IV FREDDY Administration Sodium Chloride 1,000 mls @ 42 mls/hr 07/13/19 17:45 07/15/19 06:07 Normal Saline - IV 42 mls/hr ASDIR FREDDY Administration Insulin Aspart 1 vial 07/12/19 16:30 07/15/19 11:30 Novolog Vial Sliding Scale - SQ Not Given ACHS FREDDY Protocol Insulin Detemir 30 units 07/10/19 22:00 07/14/19 21:54 Levemir Vial SQ 30 units HS FREDDY Administration Methadone HCl 80 mg/ Methadone 85 mg 07/11/19 09:15 07/15/19 06:08 HCl 5 mg PO 85 mg 0600 FREDDY Administration Multivitamins/Minerals 1 each 07/11/19 10:00 07/15/19 09:52 Theragran-M PO 1 each DAILY FREDDY Administration Nicotine 21 mg 07/10/19 18:00 07/15/19 09:52 Nicoderm Patch - TD 21 mg DAILY FREDDY Administration Nicotine Polacrilex 4 mg 07/10/19 17:51 Nicorette Gum - BUC Q2H PRN NICOTINE REPLACEMENT RX ASSESSMENT/PLAN: Elio Alvarado is a 68 year old male with a past medical history of hypertension, diabetes mellitus (insulin dependent), multiple myeloma (daratumumab), CHF, hepatitis C (received treatment) admited for bilateral lower extremity wounds requiring IV antibiotics. #Bilateral lower extremity wounds - Radiographs of the lower extremities reveal no acute free air. - MRI shows early osteomyelitis of right medial malleolus - continue Unasyn, as per ID, will likely need assisted abx in the setting of osteomyelitis. - ESR, CRP downtrending as OM is improving #PAD - Arterial duplex bilateral lower extremities noting no definite flow in the R popliteal artery with occlusion or very severe stenosis with monophasic flow within the superficial femoral and posterior tibial arteries, L leg noting monophasic flow within the popliteal and posterior tibial arteries - Plan for RLE angiogram next week along with gentle hydration prior - MRI bilateral lower extremities to evaluate for osteomyelitis noting R side minimal edema of the R medial malleolus may be related to early osteomyelitis. No changes on the L side. - Wound care consulted, continuing collagenase cream. - Podiatry loosely signing off, believes this to require ortho/surgery eval given it involves tibia. - gabapentin 300mg tid for pain #Elevated alkaline phosphatase - likely 2/2 osteomyelitis - GGT normal - alk phos improving - MRI suggestive of early osteo #Diabetes mellitus - HgbA1c 10.8 - Insulin Levemir 30units sq HS - pt been hypoglycemic may need to hold dose if hypoglycemic - ISS ACHS - BGM ACHS - dietary consulted for teaching #Elevated BNP - BNP 445, in setting of elevated BUN/Cr likely pre-renal and impaired clearance of BNP - Echo noting EF 60-65%, normal LV and RV, trace tricuspid regurg - Cardio consulted (Dr. Martinez) for pre-op clearance angiogram -The patient has a history of CHF with normal echocardiogram. He has no history of ischemic heart disease or angina. ECG 07/10/18 showed sinus rhythm without arrhythmia. - Patient is at intermediate risk [Revised Cardiac Risk Index (RCRI) 2 predictor = 2.4%] of cardiac complications for the planned vascular procedure/ operation. There are no direct cardiac contraindications to the operation. - patient is on lasix at home ? if needed to be on this given EF has normalized and pt looks euvolemic. #Chronic kidney disease - Cr today improved from 1.4->1.2 - continue gentle hydration prior to angio, NS at 42cc/hr - renal U/S with no definite renal abnormalities - hold lasix in light of pre-renal azotemia #Anemia - likely anemia of chronic disease 2/2 CKD impaired EPO release - Fe studies showing normal iron level. TIBC is pending #History of polysubstance abuse - Former Heroine, Cocaine Last use 20 years ago - Methadone dose 85mg #Hepatitis C - Patient has received treatment, continue outpatient follow up with Dr. Munoz. #Multiple Myeloma - Stable, receiving therapy with Daratummab, followed by Oncologist Dr. Forbes. - will need discussion with oncologist in the setting of IV antibiotic administration FEN - NS at 42cc/hr - continue to monitor electrolytes and replete as necessary - c/w Sodium modified diabetic diet Prophylaxis - Heparin 5000 units subq TID Disposition - continue to monitor on Med-surg Visit type - Emergency Visit Emergency Visit: Yes ED Registration Date: 07/10/19 Care time: The patient presented to the Emergency Department on the above date and was hospitalized for further evaluation of their emergent condition. - New Patient This patient is new to me today: Yes Date on this admission: 07/15/19 - Critical Care Critical Care patient: No - Discharge Referral Referred to [facility] Med [facility] No ATTENDING PHYSICIAN STATEMENT I saw and evaluated the patient. I reviewed the resident's note and discussed the case with the resident. I agree with the resident's findings and plan as documented. SUBJECTIVE: OBJECTIVE: ASSESSMENT AND PLAN:
--- NOTE | 2019-07-15 15:29 | CON.CARD ---
Consult Consult Specialty:: Cardiology Referred by:: Dr. Niño Reason for Consultation:: Preop and history of CHF - History of Present Illness Chief Complaint: Leg edema and non healing ulcers. History of Present Illness: 68 year old man, smoker, with a PMHx of hypertension, diabetes mellitus ( insulin dependent), multiple myeloma (daratumumab), CHF, hepatitis C (received treatment) admitted lower extremity pain and leg nonhealing ulcers. He was seen by Vascular surgery and found to have right posterior tibial arterial stenosis/occlusion. LE angiogram and possible revascularization planned. He has been followed by ID for cellulitis and receiving ABx. The patient has no history of CAD or VA. He denies chest pain, shortness of breath at rest, palpitation, dizziness/lightheadedness, syncope or near syncope. He has persistent leg edema without orthopnea or paroxysmal nocturnal dyspnea. Baseline exercise tolerance is limited due to leg pain and PAN. ECG 07/10/19: Normal sinus rhythm. LAD, LVH. NSIVCD. Normal ST and T. Echo 07/11/19: Normal LV size, wall motion and systolic function. LVEF = 60-65%. Normal RV. Normal LA and RA in size. No significant valvular abnormalities. - History Source History Provided By: Patient, Medical Record Limitations to Obtaining History: No Limitations - Past Medical History Cardio/Vascular: Yes: HTN, Other (Rheumatic fever) Endocrine: Yes: Diabetes Mellitus - Past Surgical History Past Surgical History: Yes: Joint Replacement (Right hip 9 years ago) - Alcohol/Substance Use Hx Alcohol Use: No - Smoking History Smoking history: Current every day smoker Have you smoked in the past 12 months: No Aproximately how many cigarettes per day: 20 If you are a former smoker, when did you quit?: 2018 Home Medications - Allergies Allergies/Adverse Reactions: Allergies Allergy/AdvReac Type Severity Reaction Status Date / Time lisinopril Allergy Severe Swelling Verified 07/10/19 10:30 - Home Medications Home Medications: Ambulatory Orders Diltiazem HCl [Diltiazem 24Hr Cd] 240 mg PO DAILY #30 cap.er.24h 02/26/19 Furosemide [Lasix -] 40 mg PO DAILY #30 tablet 02/26/19 Insulin Detemir [Levemir Flextouch] 60 unit SQ HS #2 box 02/26/19 Multivitamin,Ther and Minerals [Vitamin and Minerals] 1 each PO DAILY #30 tablet 03/19/19 Methadone [Dolophine -] 85 mg PO DAILY 07/10/19 Fluticasone Prop 0.05% Nasal [Flonase -] 1 - 2 spray NS DAILY PRN 07/12/19 Insulin Sliding Scale [Novolog Vial Sliding Scale -] 0 units SQ ACHS 07/12/19 Review of Systems - Review of Systems Constitutional: reports: No Symptoms Eyes: reports: No Symptoms HENT: reports: No Symptoms Neck: reports: No Symptoms Cardiovascular: reports: Shortness of Breath Respiratory: reports: SOB on Exertion Gastrointestinal: reports: No Symptoms Musculoskeletal: reports: Extremity Pain Integumentary: reports: Change in Color, Wound Endocrine: reports: No Symptoms Hematology/Lymphatic: reports: No Symptoms Psychiatric: reports: No Symptoms Vital Signs: Vital Signs Temperature 98.4 F 07/15/19 09:54 Pulse Rate 80 07/15/19 09:54 Respiratory Rate 20 07/15/19 09:54 Blood Pressure 150/73 07/15/19 09:54 O2 Sat by Pulse Oximetry (%) 96 07/15/19 09:00 General: Well developed. Obese. No acute distress. Head: Normocephalic. Atraumatic, Eyes: PERRLA, EOMI. Sclerae anicteric. Conjunctivae clear. Neck: Supple. No JVD. No bruits. Heart: Normal S1, S2: Regular rhythm and rate. No murmur. No gallop or rub. Lungs: Symmetrical air entry. Clear to auscultation. No crackles. No wheezing or rhonchi. Abdomen: Soft. Bowel sound positive. Non tender. No masses. Extremities: 2-3+ edema with stasis and multiple non-healing ulcers. Neuro: Intact, no focal findings. AAO X3. - Other Data Labs, Other Data: CBC, BMP 07/15/19 07:22 07/15/19 07:22 INR, PTT INR 1.04 (0.83-1.09) 07/10/19 11:45 Imaging - Results EKG: Image Reviewed (ECG 07/10/19: Normal sinus rhythm. LAD, LVH. NSIVCD. Normal ST and T.) Other: Other Assessment/Plan 68 year old man, smoker, with a PMHx of hypertension, diabetes mellitus ( insulin dependent), multiple myeloma (daratumumab), CHF, hepatitis C (received treatment) admitted lower extremity pain and leg nonhealing ulcers. He was seen by Vascular surgery and found to have right posterior tibial arterial stenosis/occlusion. LE angiogram and possible revascularization planned. He has been followed by ID for cellulitis and receiving ABx. The patient has no history of CAD or VA. Has PAN without angina. ECG 07/10/19: Normal sinus rhythm. LAD, LVH. NSIVCD. Normal ST and T. Echo 07/11/19: Normal LV size, wall motion and systolic function. LVEF = 60-65%. Normal RV. Normal LA and RA in size. No significant valvular abnormalities. 1) Preop: The patient has a history of CHF with normal echocardiogram. He has no history of ischemic heart disease or angina. ECG 07/10/18 showed sinus rhythm without arrhythmia. Therefore, the patient is at intermediate risk [Revised Cardiac Risk Index (RCRI) 2 predictor = 2.4%] of cardiac complications for the planned vascular procedure/operation. There are no direct cardiac contraindications to the operation. No further preoperative cardiac testing is needed at this time. 2) HTN: Systolic BP is elevated: May increase diltiazem to 360 mg daily for better BP and heart rate control. Please do not hesitate to call us for reconsult at any time if any further questions or additional issue arises regarding this patient.
[2019-07-15] MEDS: INSULIN (LEVEMIR) 100 UNITS/ML UNITS SQ SCH (21:01)
[2019-07-16] MEDS ORDERED: PT OWN MED DRAWER 7, Y5N ONE ×3 (01:02→18:16)
[2019-07-16] MEDS: AMPICILLIN NA/SULBACTAM NA 3 GM in SODIUM CHLORIDE 100 ML IVPB SCH ×3 (01:11→18:23)
[2019-07-16] MEDS ORDERED: METHADONE HCL 40 MG DISPERSABLE TABLET ONE (05:11)
[2019-07-16] MEDS ORDERED: METHADONE HCL 5 MG TABLET ONE (05:11)
[2019-07-16] MEDS: METHADONE 80 MG, METHADONE 5 MG PO SCH (06:18)
[2019-07-16] MEDS: GABAPENTIN 300 MG CAPSULE PO SCH ×3 (06:19→21:11)
[2019-07-16] MEDS: INSULIN SLIDING SCALE (NOVOLOG) 1 VIAL SQ SCH ×4 (06:19→21:14)
[2019-07-16 07:14] LABS: BASO % 0.4 % (0-2.0); EOS % 1.9 % (0-4.5); HEMATOCRIT 24.4 % (35.4-49); HEMOGLOBIN 8.2 GM/dL (11.7-16.9); LYMPH % 38.5 % (8-40); MCH 29.3 pg (25.7-33.7); MCHC 33.5 g/dl (32.0-35.9); MEAN CELL VOLUME 87.4 fl (80-96); MEAN PLT VOLUME 7.6 fl (7.5-11.1); MONO % 11.4 % (3.8-10.2); NEUT % 47.8 % (42.8-82.8); PLATELET COUNT 176 K/MM3 (134-434); RBC 2.79 M/mm3 (4.00-5.60); WHITE BLOOD COUNT 5.7 K/mm3 (4.0-10.0)
[2019-07-16 07:40] LABS: ALBUMIN 2.8 g/dl (3.4-5.0); BILIRUBIN,TOTAL 0.2 mg/dL (0.2-1); BLOOD UREA NITROGEN 32.8 mg/dL (7-18); CALCIUM 8.1 mg/dL (8.5-10.1); CREATININE 1.5 mg/dL (0.55-1.3); POTASSIUM 4.3 mmol/L (3.5-5.1); TOT PROT 5.7 g/dl (6.4-8.2)
[2019-07-16] MEDS ORDERED: COLLAGENASE CLOSTRIDIUM HIST. 30 GRAMS TUBE TP SCH (10:00)
[2019-07-16] MEDS: LACTATED RINGERS SOLUTION 1,000 ML/1,000 ML INFUS.BAG IV SCH (10:02)
--- NOTE | 2019-07-16 10:27 | PN ---
Progress Note (short form) - Note Progress Note: VASCULAR SURGERY Booked for RLE angio on 07/18/19 Please medically optimize and clear for above procedure.
[2019-07-16] MEDS: MULTIVITAMINS THER W-MINERALS COMBO TABLET (FP) PO SCH (10:35)
[2019-07-16] MEDS: NICOTINE 21 MG/24 HOURS TOPICAL PATCH TD SCH (10:36)
[2019-07-16] MEDS: SODIUM CHLORIDE 1,000 ML IV SCH (10:49)
[2019-07-16 11:22] LABS: PH,URINE 6.5 (5.0-8.0); URINE APPEARANCE CLEAR; URINE BILIRUBIN NEGATIVE (NEGATIVE); URINE COLOR YELLOW; URINE GLUCOSE (UA) NEGATIVE (NEGATIVE); URINE KETONE NEGATIVE (NEGATIVE); URINE LEUK ESTERASE NEGATIVE (NEGATIVE); URINE NITRITE NEGATIVE (NEGATIVE); URINE PROTEIN NEGATIVE (NEGATIVE); URINE UROBILINOGEN 0.2 mg/dL (0.2-1.0)
[2019-07-16] MEDS: COLLAGENASE CLOSTRIDIUM HIST. 30 GRAMS TUBE TP SCH (16:22)
--- NOTE | 2019-07-16 17:15 | PN ---
Physical Exam: SUBJECTIVE: Patient seen and examined at bedside this AM. No acute events overnight. Pt lying comfortably in bed. OBJECTIVE: Vital Signs Period Temp Pulse Resp BP Sys/[place] Pulse Ox Last 24 Hr 97.9 F-98.6 F 80-90 18-20 123-138/66-82 99 GENERAL: The patient is awake, alert, and fully oriented, in no acute distress. NECK: Trachea midline, full range of motion, supple. LUNGS: Breath sounds equal, clear to auscultation bilaterally, no wheezes, no crackles, no accessory muscle use. HEART: Regular rate and rhythm, S1, S2 without murmur, rub or gallop. ABDOMEN: Soft, nontender, nondistended, normoactive bowel sounds, no guarding, no rebound. EXTREMITIES: 1+ pulses b/l, edematous b/l, warm, treebark appearance on b/l LE' s worse on right leg. right leg ulcers on medial malleolus, cellulitis on left leg PSYCH: Normal mood, normal affect. SKIN: Two ulcers anterior aspect right ankle (2.5 x 2.5 cm, 2cm x 3cm). Left anterior ankle ulcer (2cm x 1.5cm). Lower extremity thickened skin with stasis dermatitis changes. Laboratory Results - last 24 hr 07/15/19 07/15/19 07/15/19 11:30 17:15 20:45 WBC RBC Hgb Hct MCV MCH MCHC RDW Plt Count MPV Absolute Neuts (auto) Neutrophils % Lymphocytes % Monocytes % Eosinophils % Basophils % Nucleated RBC % Retic Count 1.48 D Sodium Potassium Chloride Carbon Dioxide Anion Gap BUN Creatinine Est GFR (CKD-EPI)AfAm Est GFR (CKD-EPI)NonAf POC Glucometer 122 205 Random Glucose Calcium Total Bilirubin AST ALT Alkaline Phosphatase Total Protein Albumin Urine Color Urine Appearance Urine pH Ur Specific [place] Urine Protein Urine Glucose (UA) Urine Ketones Urine Blood Urine Nitrite Urine Bilirubin Urine Urobilinogen Ur Leukocyte Esterase 07/16/19 07/16/19 07/16/19 06:05 06:05 06:17 WBC 5.7 RBC 2.79 L Hgb 8.2 L Hct 24.4 L MCV 87.4 MCH 29.3 MCHC 33.5 RDW 14.0 Plt Count 176 MPV 7.6 Absolute Neuts (auto) 2.7 Neutrophils % 47.8 Lymphocytes % 38.5 Monocytes % 11.4 H Eosinophils % 1.9 Basophils % 0.4 Nucleated RBC % 0 Retic Count Sodium 140 Potassium 4.3 Chloride 108 H Carbon Dioxide 28 Anion Gap 4 L BUN 32.8 H Creatinine 1.5 H Est GFR (CKD-EPI)AfAm 54.27 Est GFR (CKD-EPI)NonAf 46.83 POC Glucometer 93 Random Glucose 90 Calcium 8.1 L Total Bilirubin 0.2 AST 13 L ALT 18 Alkaline Phosphatase 108 Total Protein 5.7 L Albumin 2.8 L Urine Color Urine Appearance Urine pH Ur Specific [place] Urine Protein Urine Glucose (UA) Urine Ketones Urine Blood Urine Nitrite Urine Bilirubin Urine Urobilinogen Ur Leukocyte Esterase 07/16/19 07/16/19 07/16/19 09:00 12:29 16:53 WBC RBC Hgb Hct MCV MCH MCHC RDW Plt Count MPV Absolute Neuts (auto) Neutrophils % Lymphocytes % Monocytes % Eosinophils % Basophils % Nucleated RBC % Retic Count Sodium Potassium Chloride Carbon Dioxide Anion Gap BUN Creatinine Est GFR (CKD-EPI)AfAm Est GFR (CKD-EPI)NonAf POC Glucometer 103 173 Random Glucose Calcium Total Bilirubin AST ALT Alkaline Phosphatase Total Protein Albumin Urine Color Yellow Urine Appearance Clear Urine pH 6.5 Ur Specific [place] 1.009 L Urine Protein Negative Urine Glucose (UA) Negative Urine Ketones Negative Urine Blood Negative Urine Nitrite Negative Urine Bilirubin Negative Urine Urobilinogen 0.2 Ur Leukocyte Esterase Negative Active Medications Generic Name Dose Route Start Last Admin Trade Name Freq PRN Reason Stop Dose Admin Collagenase 1 applic 07/16/19 10:00 07/16/19 16:22 Santyl - TP 1 applic DAILY FREDDY Administration Protocol Diltiazem HCl 360 mg 07/16/19 10:00 07/16/19 10:35 Cardizem Cd - PO 360 mg DAILY FREDDY Administration Gabapentin 300 mg 07/14/19 14:00 07/16/19 16:04 Neurontin - PO 300 mg TID FREDDY Administration Ampicillin Sodium/Sulbactam 100 mls @ 200 mls/hr 07/12/19 18:00 07/16/19 10: 38 Sodium 3 gm/ Sodium Chloride IVPB 200 mls/hr Q8H-IV FREDDY Administration Lactated Ringer's 1,000 ml in 1,000 mls @ 75 mls/hr 07/16/19 08:45 07/16/19 10:02 Lactated Ringers Solution IV 75 mls/hr ASDIR FREDDY Administration Insulin Aspart 1 vial 07/12/19 16:30 07/16/19 12:30 Novolog Vial Sliding Scale - SQ Not Given ACHS [facility] Protocol Insulin Detemir 30 units 07/10/19 22:00 07/15/19 21:01 Levemir Vial SQ 30 units HS FREDDY Administration Methadone HCl 80 mg/ Methadone 85 mg 07/11/19 09:15 07/16/19 06:18 HCl 5 mg PO 85 mg 0600 FREDDY Administration Multivitamins/Minerals 1 each 07/11/19 10:00 07/16/19 10:35 Theragran-M PO 1 each DAILY FREDDY Administration Nicotine 21 mg 07/10/19 18:00 07/16/19 10:36 Nicoderm Patch - TD 21 mg DAILY FREDDY Administration Nicotine Polacrilex 4 mg 07/10/19 17:51 Nicorette Gum - BUC Q2H PRN NICOTINE REPLACEMENT RX ASSESSMENT/PLAN: Elio Alvarado is a 68 y/o male with a past medical history of hypertension, diabetes mellitus (insulin dependent), multiple myeloma (daratumumab), CHF, hepatitis C (received treatment) admited for bilateral lower extremity wounds requiring IV antibiotics. #Bilateral lower extremity wounds - Radiographs of the lower extremities reveal no acute free air. - MRI shows early osteomyelitis of right medial malleolus - continue Unasyn, as per ID, will likely need jail abx in the setting of osteomyelitis. - ESR, CRP downtrending as OM is improving #PAD - Arterial duplex bilateral lower extremities noting no definite flow in the R popliteal artery with occlusion or very severe stenosis with monophasic flow within the superficial femoral and posterior tibial arteries, L leg noting monophasic flow within the popliteal and posterior tibial arteries - Plan for RLE angiogram next week along with gentle hydration prior - MRI bilateral lower extremities to evaluate for osteomyelitis noting R side minimal edema of the R medial malleolus may be related to early osteomyelitis. No changes on the L side. - Wound care consulted, continuing collagenase cream. - Podiatry loosely signing off, believes this to require ortho/surgery eval given it involves tibia. - gabapentin 300mg tid for pain #Elevated alkaline phosphatase - likely 2/2 osteomyelitis - GGT normal - alk phos improving - MRI suggestive of early osteo #Diabetes mellitus - HgbA1c 10.8 - Insulin Levemir 30units sq HS - pt been hypoglycemic may need to hold dose if hypoglycemic - ISS ACHS - BGM ACHS - dietary consulted for teaching #Elevated BNP - BNP 445, in setting of elevated BUN/Cr likely pre-renal and impaired clearance of BNP - Echo noting EF 60-65%, normal LV and RV, trace tricuspid regurg - Cardio consulted (Dr. Martinez) for pre-op clearance angiogram -The patient has a history of CHF with normal echocardiogram. He has no history of ischemic heart disease or angina. ECG 07/10/18 showed sinus rhythm without arrhythmia. - Patient is at intermediate risk [Revised Cardiac Risk Index (RCRI) 2 predictor = 2.4%] of cardiac complications for the planned vascular procedure/ operation. There are no direct cardiac contraindications to the operation. - holding lasix due to BUN/cr indicating hypovolemic state #Chronic kidney disease - Cr today acutely worsened from 1.4->1.2->1.5 - spoke with Dr. Forbes (oncology) who informed me pts baseline Cr is around 1.8-2.2 so patient is likely not having an SHEY on CKD. - increased fluid to 75cc/hr and switched to LR given hyperchloremia - renal U/S with no definite renal abnormalities (BUN-32.8) possibly from dehydration. - hold lasix in light of pre-renal azotemia #Anemia - likely anemia of chronic disease 2/2 CKD impaired EPO release - Fe studies showing normal iron level. TIBC is pending #History of polysubstance abuse - Former Heroine, Cocaine Last use 20 years ago - Methadone dose 85mg #Hepatitis C - Patient has received treatment, continue outpatient follow up with Dr. Munoz. #Multiple Myeloma - Stable, receiving therapy with Daratummab, followed by Oncologist Dr. Forbes. - will need discussion with oncologist in the setting of IV antibiotic administration FEN - NS at 42cc/hr - continue to monitor electrolytes and replete as necessary - c/w Sodium modified diabetic diet Prophylaxis - Heparin 5000 units subq TID Disposition - continue to monitor on Med-surg Visit type - Emergency Visit Emergency Visit: Yes ED Registration Date: 07/10/19 Care time: The patient presented to the Emergency Department on the above date and was hospitalized for further evaluation of their emergent condition. - New Patient This patient is new to me today: No - Critical Care Critical Care patient: No - Discharge Referral Referred to [facility] No ATTENDING PHYSICIAN STATEMENT I saw and evaluated the patient. I reviewed the resident's note and discussed the case with the resident. I agree with the resident's findings and plan as documented. SUBJECTIVE: OBJECTIVE: ASSESSMENT AND PLAN:
--- NOTE | 2019-07-16 18:05 | PN ---
Teaching Attending Note Name of Resident: Brent Andino ATTENDING PHYSICIAN STATEMENT I saw and evaluated the patient. I reviewed the resident's note and discussed the case with the resident. I agree with the resident's findings and plan as documented. SUBJECTIVE: Feels okay. No complaints. OBJECTIVE: Afebrile, Hemodynamically Stable Last Vital Signs Temp Pulse Resp BP Pulse Ox 98.3 F 90 18 128/67 99 07/16/19 15:15 07/16/19 15:15 07/16/19 15:15 07/16/19 15:15 07/15/19 20:48 HEENT - Atraumatic, normocephalic. Heart - S1 S2, RRR Lungs - R portacath. Clear to auscultation Abdomen - Soft, non-tender. High BMI, Bowel Sounds normal. Extremities - Chronic venous stasis with skin changes and bilateral ulcers on dorsal aspect of ankles Laboratory Results - last 24 hr 07/15/19 07/15/19 07/16/19 11:30 20:45 06:05 WBC 5.7 RBC 2.79 L Hgb 8.2 L Hct 24.4 L MCV 87.4 MCH 29.3 MCHC 33.5 RDW 14.0 Plt Count 176 MPV 7.6 Absolute Neuts (auto) 2.7 Neutrophils % 47.8 Lymphocytes % 38.5 Monocytes % 11.4 H Eosinophils % 1.9 Basophils % 0.4 Nucleated RBC % 0 Sodium Potassium Chloride Carbon Dioxide Anion Gap BUN Creatinine Est GFR (CKD-EPI)AfAm Est GFR (CKD-EPI)NonAf POC Glucometer 122 205 Random Glucose Calcium Total Bilirubin AST ALT Alkaline Phosphatase Total Protein Albumin Urine Color Urine Appearance Urine pH Ur Specific [place] Urine Protein Urine Glucose (UA) Urine Ketones Urine Blood Urine Nitrite Urine Bilirubin Urine Urobilinogen Ur Leukocyte Esterase 07/16/19 07/16/19 07/16/19 06:05 06:17 09:00 WBC RBC Hgb Hct MCV MCH MCHC RDW Plt Count MPV Absolute Neuts (auto) Neutrophils % Lymphocytes % Monocytes % Eosinophils % Basophils % Nucleated RBC % Sodium 140 Potassium 4.3 Chloride 108 H Carbon Dioxide 28 Anion Gap 4 L BUN 32.8 H Creatinine 1.5 H Est GFR (CKD-EPI)AfAm 54.27 Est GFR (CKD-EPI)NonAf 46.83 POC Glucometer 93 Random Glucose 90 Calcium 8.1 L Total Bilirubin 0.2 AST 13 L ALT 18 Alkaline Phosphatase 108 Total Protein 5.7 L Albumin 2.8 L Urine Color Yellow Urine Appearance Clear Urine pH 6.5 Ur Specific [place] 1.009 L Urine Protein Negative Urine Glucose (UA) Negative Urine Ketones Negative Urine Blood Negative Urine Nitrite Negative Urine Bilirubin Negative Urine Urobilinogen 0.2 Ur Leukocyte Esterase Negative 07/16/19 07/16/19 12:29 16:53 WBC RBC Hgb Hct MCV MCH MCHC RDW Plt Count MPV Absolute Neuts (auto) Neutrophils % Lymphocytes % Monocytes % Eosinophils % Basophils % Nucleated RBC % Sodium Potassium Chloride Carbon Dioxide Anion Gap BUN Creatinine Est GFR (CKD-EPI)AfAm Est GFR (CKD-EPI)NonAf POC Glucometer 103 173 Random Glucose Calcium Total Bilirubin AST ALT Alkaline Phosphatase Total Protein Albumin Urine Color Urine Appearance Urine pH Ur Specific [place] Urine Protein Urine Glucose (UA) Urine Ketones Urine Blood Urine Nitrite Urine Bilirubin Urine Urobilinogen Ur Leukocyte Esterase Current Medications Generic Name Dose Route Start Last Admin Trade Name Freq PRN Reason Stop Dose Admin Collagenase 1 applic 07/16/19 10:00 07/16/19 16:22 Santyl - TP 1 applic DAILY FREDDY Administration Protocol Diltiazem HCl 360 mg 07/16/19 10:00 07/16/19 10:35 Cardizem Cd - PO 360 mg DAILY FREDDY Administration Gabapentin 300 mg 07/14/19 14:00 07/16/19 16:04 Neurontin - PO 300 mg TID FREDDY Administration Ampicillin Sodium/Sulbactam 100 mls @ 200 mls/hr 07/12/19 18:00 07/16/19 10: 38 Sodium 3 gm/ Sodium Chloride IVPB 200 mls/hr Q8H-IV FREDDY Administration Lactated Ringer's 1,000 ml in 1,000 mls @ 75 mls/hr 07/16/19 08:45 07/16/19 10:02 Lactated Ringers Solution IV 75 mls/hr ASDIR FREDDY Administration Insulin Aspart 1 vial 07/12/19 16:30 07/16/19 12:30 Novolog Vial Sliding Scale - SQ Not Given ACHS FREDDY Protocol Insulin Detemir 30 units 07/10/19 22:00 07/15/19 21:01 Levemir Vial SQ 30 units HS FREDDY Administration Methadone HCl 80 mg/ Methadone 85 mg 07/11/19 09:15 07/16/19 06:18 HCl 5 mg PO 85 mg 0600 FREDDY Administration Multivitamins/Minerals 1 each 07/11/19 10:00 07/16/19 10:35 Theragran-M PO 1 each DAILY FREDDY Administration Nicotine 21 mg 07/10/19 18:00 07/16/19 10:36 Nicoderm Patch - TD 21 mg DAILY FREDDY Administration Nicotine Polacrilex 4 mg 07/10/19 17:51 Nicorette Gum - BUC Q2H PRN NICOTINE REPLACEMENT RX Home Medications Medication Instructions Recorded Diltiazem HCl [Diltiazem 24Hr Cd] 240 mg PO DAILY #30 cap.er.24h 02/26/19 Furosemide [Lasix -] 40 mg PO DAILY #30 tablet 02/26/19 Insulin Detemir [Levemir Flextouch] 60 unit SQ HS #2 box 02/26/19 Multivitamin,Ther and Minerals 1 each PO DAILY #30 tablet 03/19/19 [Vitamin and Minerals] Methadone [Dolophine -] 85 mg PO DAILY 07/10/19 Fluticasone Prop 0.05% Nasal 1 - 2 spray NS DAILY PRN 07/12/19 [Flonase -] Insulin Sliding Scale [Novolog 0 units SQ ACHS 07/12/19 Vial Sliding Scale -] ASSESSMENT AND PLAN: 68 year old male with histry of HTN, DM 2, MM, Hepatitis C, Chronic Diastolic CHF (EF 60-65%), Chronic venous Stasis, admitted with bilateral LE infected ulcers. 1. Acute Osteomyelitis of R medial Mallelolus associated with infected ulcer. MRI shows OM Continue Unasymn Wound Cx pending ID following. 2. Peripheral Arterial Disease Duplex LEs - shows severe stenosis/occlusion superficial femoral/posterior tibial arteries. Eval by Vascular Surgery - for CT Angio on . Podiatry and Vascular Surgery consulted. Neurontin for pain. 3. DM 2 - Continue Levemir and Novolog sliding scale. 4. CKD 3 -Stable 5. Chronic Anemia - Nromocytic), likely sec to CKD vs chronic disease vs marrow suppression due to OM Will complete Anemia work-up with Ferritin, Iron Sat, B12, and folate levels. 6. MM on IV Daratumab via R sided portacath 7. Hx of Opiate Abuse - on Methadone. 8. Hx of Hepatitis C - completed Rx. Outpatient follow up with Dr. Munoz. 9. HTN - continue Cardizem DVT Px - Heparin SQ
[2019-07-16] MEDS: HEPARIN NA (PORCINE) 5,000 UNITS/ML 1ML VIAL SQ SCH (21:09)
[2019-07-16] MEDS: INSULIN (LEVEMIR) 100 UNITS/ML UNITS SQ SCH (21:11)
[2019-07-17] MEDS: AMPICILLIN NA/SULBACTAM NA 3 GM in SODIUM CHLORIDE 100 ML IVPB SCH ×3 (02:29→17:35)
[2019-07-17] MEDS: LACTATED RINGERS SOLUTION 1,000 ML/1,000 ML INFUS.BAG IV SCH ×3 (03:44→12:33)
[2019-07-17] MEDS ORDERED: METHADONE HCL 5 MG TABLET ONE ×2 (06:09→06:11)
[2019-07-17] MEDS ORDERED: METHADONE HCL 40 MG DISPERSABLE TABLET ONE (06:12)
[2019-07-17] MEDS: METHADONE 80 MG, METHADONE 5 MG PO SCH (06:22)
[2019-07-17] MEDS: GABAPENTIN 300 MG CAPSULE PO SCH ×3 (06:22→21:06)
[2019-07-17] MEDS: INSULIN SLIDING SCALE (NOVOLOG) 1 VIAL SQ SCH ×4 (06:23→21:08)
[2019-07-17 07:58] LABS: BASO % 0.4 % (0-2.0); EOS % 1.6 % (0-4.5); HEMATOCRIT 24.5 % (35.4-49); HEMOGLOBIN 8.1 GM/dL (11.7-16.9); LYMPH % 41.4 % (8-40); MEAN PLT VOLUME 7.5 fl (7.5-11.1); MONO % 10.6 % (3.8-10.2); PLATELET COUNT 162 K/MM3 (134-434); RBC 2.78 M/mm3 (4.00-5.60); RDW 13.9 % (11.9-15.9); WHITE BLOOD COUNT 5.7 K/mm3 (4.0-10.0)
[2019-07-17 08:29] LABS: ALBUMIN 3.2 g/dl (3.4-5.0); BILIRUBIN,TOTAL 0.4 mg/dL (0.2-1); CALCIUM 8.6 mg/dL (8.5-10.1); CREATININE 1.5 mg/dL (0.55-1.3); POTASSIUM 4.1 mmol/L (3.5-5.1); TOT PROT 6.6 g/dl (6.4-8.2)
--- NOTE | 2019-07-17 08:39 | SPA.PREOP ---
- PRE-OP NOTE Dx: RLE arterial insuffiency Planned Procedure: Rt leg angiogram Surgeon: Jayjay Le, Last Vital Signs Temp Pulse Resp BP Pulse Ox 97.9 F 72 20 146/63 98 07/17/19 06:34 07/17/19 06:34 07/17/19 06:34 07/17/19 06:34 07/16/19 21:00 Lab Results WBC 5.7 K/mm3 (4.0-10.0) 07/17/19 07:00 RBC 2.78 M/mm3 (4.00-5.60) L 07/17/19 07:00 Hgb 8.1 GM/dL (11.7-16.9) L 07/17/19 07:00 Hct 24.5 % (35.4-49) L 07/17/19 07:00 MCV 88.0 fl (80-96) 07/17/19 07:00 MCHC 33.0 g/dl (32.0-35.9) 07/17/19 07:00 RDW 13.9 % (11.9-15.9) 07/17/19 07:00 Plt Count 162 K/MM3 (134-434) 07/17/19 07:00 Sodium 139 mmol/L (136-145) 07/17/19 07:00 Potassium 4.1 mmol/L (3.5-5.1) 07/17/19 07:00 Chloride 107 mmol/L (98-107) 07/17/19 07:00 Carbon Dioxide 25 mmol/L (21-32) 07/17/19 07:00 Anion Gap 7 MMOL/L (8-16) L 07/17/19 07:00 BUN 34.0 mg/dL (7-18) H 07/17/19 07:00 Creatinine 1.5 mg/dL (0.55-1.3) H 07/17/19 07:00 Random Glucose 74 mg/dL (74-106) 07/17/19 07:00 Calcium 8.6 mg/dL (8.5-10.1) 07/17/19 07:00 Blood Type O POSITIVE 07/11/19 07:30 Antibody Screen Positive H 07/10/19 11:45 INR 1.04 (0.83-1.09) 07/10/19 11:45 - ASSESSMENT/PLAN 1. Make NPO after midnight except po meds 2. GI/DVT PPX 3. Medical optimization / clearance 4. Consent to be obtained by surgeon after risks, benefits and alternatives discussed with patient and or Health Care Proxy.
[2019-07-17] MEDS ORDERED: PT OWN MED DRAWER 7, Y5N ONE ×2 (09:14→17:31)
[2019-07-17] MEDS: MULTIVITAMINS THER W-MINERALS COMBO TABLET (FP) PO SCH (09:21)
[2019-07-17] MEDS: HEPARIN NA (PORCINE) 5,000 UNITS/ML 1ML VIAL SQ SCH ×2 (09:21→21:02)
[2019-07-17] MEDS: NICOTINE 21 MG/24 HOURS TOPICAL PATCH TD SCH (09:21)
[2019-07-17] MEDS: COLLAGENASE CLOSTRIDIUM HIST. 30 GRAMS TUBE TP SCH (09:26)
--- NOTE | 2019-07-17 16:05 | PN ---
Physical Exam: SUBJECTIVE: Patient seen and examined. No acute events overnight. Pt walked the whole floor with PT. OBJECTIVE: Vital Signs Period Temp Pulse Resp BP Sys/Gamboa Pulse Ox Last 24 Hr 97.4 F-97.9 F 72-96 18-20 110-157/46-90 98 GENERAL: The patient is awake, alert, and fully oriented, in no acute distress. NECK: supple. LUNGS: Breath sounds equal, clear to auscultation bilaterally, no wheezes, no crackles, no accessory muscle use. HEART: Regular rate and rhythm, S1, S2 without murmur, rub or gallop. ABDOMEN: Soft, nontender, nondistended, normoactive bowel sounds, no guarding, no rebound EXTREMITIES: 1+ pulses, warm, well-perfused, 2+ edema. NEUROLOGICAL: Cranial nerves II through XII grossly intact. Normal speech, gait not observed. SKIN: b/l diabetic ulcers improving, treebark skin b/l, edematous b/l. Laboratory Results - last 24 hr 07/15/19 07/16/19 07/16/19 09:00 16:53 21:08 WBC RBC Hgb Hct MCV MCH MCHC RDW Plt Count MPV Absolute Neuts (auto) Neutrophils % Lymphocytes % Monocytes % Eosinophils % Basophils % Nucleated RBC % Sodium Potassium Chloride Carbon Dioxide Anion Gap BUN Creatinine Est GFR (CKD-EPI)AfAm Est GFR (CKD-EPI)NonAf POC Glucometer 173 249 Random Glucose Calcium Transferrin 215 Ferritin Total Bilirubin AST ALT Alkaline Phosphatase Total Protein Albumin Vitamin B12 Serum Folate 07/17/19 07/17/19 07/17/19 06:21 07:00 07:00 WBC 5.7 RBC 2.78 L Hgb 8.1 L Hct 24.5 L MCV 88.0 MCH 29.0 MCHC 33.0 RDW 13.9 Plt Count 162 MPV 7.5 Absolute Neuts (auto) 2.6 Neutrophils % 46.0 Lymphocytes % 41.4 H Monocytes % 10.6 H Eosinophils % 1.6 Basophils % 0.4 Nucleated RBC % 0 Sodium 139 Potassium 4.1 Chloride 107 Carbon Dioxide 25 Anion Gap 7 L BUN 34.0 H Creatinine 1.5 H Est GFR (CKD-EPI)AfAm 54.27 Est GFR (CKD-EPI)NonAf 46.83 POC Glucometer 75 Random Glucose 74 Calcium 8.6 Transferrin Ferritin 118.3 Total Bilirubin 0.4 AST 16 ALT 19 Alkaline Phosphatase 129 H Total Protein 6.6 Albumin 3.2 L Vitamin B12 324 Serum Folate 9 07/17/19 12:24 WBC RBC Hgb Hct MCV MCH MCHC RDW Plt Count MPV Absolute Neuts (auto) Neutrophils % Lymphocytes % Monocytes % Eosinophils % Basophils % Nucleated RBC % Sodium Potassium Chloride Carbon Dioxide Anion Gap BUN Creatinine Est GFR (CKD-EPI)AfAm Est GFR (CKD-EPI)NonAf POC Glucometer 98 Random Glucose Calcium Transferrin Ferritin Total Bilirubin AST ALT Alkaline Phosphatase Total Protein Albumin Vitamin B12 Serum Folate Active Medications Generic Name Dose Route Start Last Admin Trade Name Freq PRN Reason Stop Dose Admin Collagenase 1 applic 07/16/19 10:00 07/17/19 09:26 Santyl - TP 1 applic DAILY FREDDY Administration Protocol Diltiazem HCl 360 mg 07/16/19 10:00 07/17/19 09:20 Cardizem Cd - PO 360 mg DAILY FREDDY Administration Gabapentin 300 mg 07/14/19 14:00 07/17/19 15:35 Neurontin - PO 300 mg TID FREDDY Administration Heparin Sodium (Porcine) 5,000 unit 07/16/19 22:00 07/17/19 09:21 Heparin - SQ 5,000 unit BID FREDDY Administration Ampicillin Sodium/Sulbactam 100 mls @ 200 mls/hr 07/12/19 18:00 07/17/19 09: 22 Sodium 3 gm/ Sodium Chloride IVPB 200 mls/hr Q8H-IV FREDDY Administration Lactated Ringer's 1,000 ml in 1,000 mls @ 42 mls/hr 07/17/19 10:16 07/17/19 12:33 Lactated Ringers Solution IV 42 mls/hr ASDIR FREDDY Administration Insulin Aspart 1 vial 07/12/19 16:30 07/17/19 12:32 Novolog Vial Sliding Scale - SQ Not Given ACHS FREDDY Protocol Insulin Detemir 30 units 07/10/19 22:00 07/16/19 21:11 Levemir Vial SQ 30 units HS FREDDY Administration Methadone HCl 80 mg/ Methadone 85 mg 07/11/19 09:15 07/17/19 06:22 HCl 5 mg PO 85 mg 0600 FREDDY Administration Multivitamins/Minerals 1 each 07/11/19 10:00 07/17/19 09:21 Theragran-M PO 1 each DAILY FREDDY Administration Nicotine 21 mg 07/10/19 18:00 07/17/19 09:21 Nicoderm Patch - TD 21 mg DAILY FREDDY Administration Nicotine Polacrilex 4 mg 07/10/19 17:51 Nicorette Gum - BUC Q2H PRN NICOTINE REPLACEMENT RX ASSESSMENT/PLAN: Images: - Arterial duplex bilateral lower extremities noting no definite flow in the R popliteal artery with occlusion or very severe stenosis with monophasic flow within the superficial femoral and posterior tibial arteries, L leg noting monophasic flow within the popliteal and posterior tibial arteries - MRI bilateral lower extremities to evaluate for osteomyelitis noting R side minimal edema of the R medial malleolus may be related to early osteomyelitis. No changes on the L side. Elio Alvarado is a 68 y/o male with a past medical history of hypertension, diabetes mellitus (insulin dependent), multiple myeloma (daratumumab), CHF, hepatitis C (received treatment) admited for bilateral lower extremity wounds requiring IV antibiotics. #Bilateral lower extremity wounds - continue Unasyn, as per ID, will need halfway abx in the setting of osteomyelitis. - will touch base with ID and IR for PICC line placement and unasyn renewal. #PAD - Plan for RLE angiogram tm along with gentle hydration reduced to 42cc/hrLR - Wound care consulted, continuing collagenase cream. - gabapentin 300mg tid for pain - PT walked with pt the whole floor only complaint was numbness that is chronic under his feet #Elevated alkaline phosphatase - likely 2/2 osteomyelitis - alk phos improving #Diabetes mellitus - HgbA1c 10.8 - Insulin Levemir 30units sq HS - pt been hypoglycemic may need to hold dose if hypoglycemic - ISS ACHS - BGM ACHS - dietary consulted for teaching #Elevated BNP - BNP 445, in setting of elevated BUN/Cr likely pre-renal and impaired clearance of BNP - Echo noting EF 60-65%, normal LV and RV, trace tricuspid regurg - Cardio consulted (Dr. Martinez) for pre-op clearance angiogram - Patient is at intermediate risk [Revised Cardiac Risk Index (RCRI) 2 predictor = 2.4%] of cardiac complications for the planned vascular procedure/ operation. There are no direct cardiac contraindications to the operation. - continuing fluids at 42cc/hr reduced from 75. #Chronic kidney disease - Cr today acutely worsened from 1.4->1.2->1.5 - spoke with Dr. Forbes (oncology) who informed me pts baseline Cr is around 1.8-2.2 so patient is likely not having an SHEY on CKD. - increased fluid to 75cc/hr and switched to LR given hyperchloremia - renal U/S with no definite renal abnormalities (BUN-32.8) possibly from dehydration. - hold lasix in light of pre-renal azotemia #Anemia - likely anemia of chronic disease 2/2 CKD impaired EPO release - Fe studies showing normal iron level. TIBC is pending #History of polysubstance abuse - Former Heroine, Cocaine Last use 20 years ago - Methadone dose 85mg #Hepatitis C - Patient has received treatment, continue outpatient follow up with Dr. Munoz. #Multiple Myeloma - Stable, receiving therapy with Daratummab, followed by Oncologist Dr. Forbes. - will need discussion with oncologist in the setting of IV antibiotic administration FEN - NS at 42cc/hr - continue to monitor electrolytes and replete as necessary - c/w Sodium modified diabetic diet Prophylaxis - Heparin 5000 units subq TID Disposition - continue to monitor on Med-surg Visit type - Emergency Visit Emergency Visit: Yes ED Registration Date: 07/10/19 Care time: The patient presented to the Emergency Department on the above date and was hospitalized for further evaluation of their emergent condition. - New Patient This patient is new to me today: No - Critical Care Critical Care patient: No - Discharge Referral Referred to [facility] Med P.C[facility] No ATTENDING PHYSICIAN STATEMENT I saw and evaluated the patient. I reviewed the resident's note and discussed the case with the resident. I agree with the resident's findings and plan as documented. SUBJECTIVE: OBJECTIVE: ASSESSMENT AND PLAN:
--- NOTE | 2019-07-17 16:48 | PN ---
Teaching Attending Note Name of Resident: Brent Andino ATTENDING PHYSICIAN STATEMENT I saw and evaluated the patient. I reviewed the resident's note and discussed the case with the resident. I agree with the resident's findings and plan as documented. SUBJECTIVE: Feels well. No complaints. No fever/chills. OBJECTIVE: Afebrile, Hemodynamically Stable Last Vital Signs Temp Pulse Resp BP Pulse Ox 97.4 F L 96 H 18 157/90 98 07/17/19 14:00 07/17/19 14:00 07/17/19 14:00 07/17/19 14:00 07/16/19 21:00 Heart - S1 S2, RRR Lungs - R portacath. Clear to auscultation Abdomen - Soft, non-tender. High BMI, Bowel Sounds normal. Extremities - Chronic venous stasis with skin changes and bilateral ulcers on dorsal aspect of L ankles and medial aspect of L ankle. Laboratory Results - last 24 hr 07/15/19 07/16/19 07/16/19 09:00 16:53 21:08 WBC RBC Hgb Hct MCV MCH MCHC RDW Plt Count MPV Absolute Neuts (auto) Neutrophils % Lymphocytes % Monocytes % Eosinophils % Basophils % Nucleated RBC % Sodium Potassium Chloride Carbon Dioxide Anion Gap BUN Creatinine Est GFR (CKD-EPI)AfAm Est GFR (CKD-EPI)NonAf POC Glucometer 173 249 Random Glucose Calcium Transferrin 215 Ferritin Total Bilirubin AST ALT Alkaline Phosphatase Total Protein Albumin Vitamin B12 Serum Folate 07/17/19 07/17/19 07/17/19 06:21 07:00 07:00 WBC 5.7 RBC 2.78 L Hgb 8.1 L Hct 24.5 L MCV 88.0 MCH 29.0 MCHC 33.0 RDW 13.9 Plt Count 162 MPV 7.5 Absolute Neuts (auto) 2.6 Neutrophils % 46.0 Lymphocytes % 41.4 H Monocytes % 10.6 H Eosinophils % 1.6 Basophils % 0.4 Nucleated RBC % 0 Sodium 139 Potassium 4.1 Chloride 107 Carbon Dioxide 25 Anion Gap 7 L BUN 34.0 H Creatinine 1.5 H Est GFR (CKD-EPI)AfAm 54.27 Est GFR (CKD-EPI)NonAf 46.83 POC Glucometer 75 Random Glucose 74 Calcium 8.6 Transferrin Ferritin 118.3 Total Bilirubin 0.4 AST 16 ALT 19 Alkaline Phosphatase 129 H Total Protein 6.6 Albumin 3.2 L Vitamin B12 324 Serum Folate 9 07/17/19 12:24 WBC RBC Hgb Hct MCV MCH MCHC RDW Plt Count MPV Absolute Neuts (auto) Neutrophils % Lymphocytes % Monocytes % Eosinophils % Basophils % Nucleated RBC % Sodium Potassium Chloride Carbon Dioxide Anion Gap BUN Creatinine Est GFR (CKD-EPI)AfAm Est GFR (CKD-EPI)NonAf POC Glucometer 98 Random Glucose Calcium Transferrin Ferritin Total Bilirubin AST ALT Alkaline Phosphatase Total Protein Albumin Vitamin B12 Serum Folate Current Medications Generic Name Dose Route Start Last Admin Trade Name Joaquinq PRN Reason Stop Dose Admin Collagenase 1 applic 07/16/19 10:00 07/17/19 09:26 Santyl - TP 1 applic DAILY FREDDY Administration Protocol Diltiazem HCl 360 mg 07/16/19 10:00 07/17/19 09:20 Cardizem Cd - PO 360 mg DAILY FREDDY Administration Gabapentin 300 mg 07/14/19 14:00 07/17/19 15:35 Neurontin - PO 300 mg TID FREDDY Administration Heparin Sodium (Porcine) 5,000 unit 07/16/19 22:00 07/17/19 09:21 Heparin - SQ 5,000 unit BID FREDDY Administration Ampicillin Sodium/Sulbactam 100 mls @ 200 mls/hr 07/12/19 18:00 07/17/19 09: 22 Sodium 3 gm/ Sodium Chloride IVPB 200 mls/hr Q8H-IV FREDDY Administration Lactated Ringer's 1,000 ml in 1,000 mls @ 42 mls/hr 07/17/19 10:16 07/17/19 12:33 Lactated Ringers Solution IV 42 mls/hr ASDIR FREDDY Administration Insulin Aspart 1 vial 07/12/19 16:30 07/17/19 12:32 Novolog Vial Sliding Scale - SQ Not Given ACHS FREDDY Protocol Insulin Detemir 30 units 07/10/19 22:00 07/16/19 21:11 Levemir Vial SQ 30 units HS FREDDY Administration Insulin Detemir 10 units 07/17/19 22:00 Levemir Vial SQ 07/17/19 22:01 ONCE ONE Methadone HCl 80 mg/ Methadone 85 mg 07/11/19 09:15 07/17/19 06:22 HCl 5 mg PO 85 mg 0600 FREDDY Administration Multivitamins/Minerals 1 each 07/11/19 10:00 07/17/19 09:21 Theragran-M PO 1 each DAILY FREDDY Administration Nicotine 21 mg 07/10/19 18:00 07/17/19 09:21 Nicoderm Patch - TD 21 mg DAILY FREDDY Administration Nicotine Polacrilex 4 mg 07/10/19 17:51 Nicorette Gum - BUC Q2H PRN NICOTINE REPLACEMENT RX Home Medications Medication Instructions Recorded Diltiazem HCl [Diltiazem 24Hr Cd] 240 mg PO DAILY #30 cap.er.24h 02/26/19 Furosemide [Lasix -] 40 mg PO DAILY #30 tablet 02/26/19 Insulin Detemir [Levemir Flextouch] 60 unit SQ HS #2 box 02/26/19 Multivitamin,Ther and Minerals 1 each PO DAILY #30 tablet 03/19/19 [Vitamin and Minerals] Methadone [Dolophine -] 85 mg PO DAILY 07/10/19 Fluticasone Prop 0.05% Nasal 1 - 2 spray NS DAILY PRN 07/12/19 [Flonase -] Insulin Sliding Scale [Novolog 0 units SQ ACHS 07/12/19 Vial Sliding Scale -] ASSESSMENT AND PLAN: 68 year old male with history of HTN, DM 2, MM, Hepatitis C, Chronic Diastolic CHF (EF 60-65%), Chronic venous Stasis, admitted with bilateral LE infected ulcers. 1. Acute Osteomyelitis of R medial Malleolus associated with infected ulcer/ cellulitis bilateral LEs. MRI shows OM R medial malleolus Continue Unasyn ID following. 2. Peripheral Arterial Disease Duplex LEs - shows severe stenosis/occlusion superficial femoral/posterior tibial arteries. Eval by Vascular Surgery - for Angiogram on . Podiatry and Vascular Surgery consulted. Neurontin for pain. 3. DM 2 - Continue Levemir and Novolog sliding scale. 4. CKD 3 - Stable 5. Chronic Anemia - Normocytic, likely sec to CKD vs chronic disease vs marrow suppression due to OM B12 level 324, borderline. Will replace. 6. MM on IV Daratumab via R sided portacath - Hematology follow up as out- patient. 7. Hx of Opiate Abuse - on Methadone. 8. Hx of Hepatitis C - completed Rx. Outpatient follow up with Dr. Munoz. 9. HTN - continue Cardizem DVT Px - Heparin SQ
[2019-07-17] MEDS: CYANOCOBALAMIN 1,000 MCG TABLET (FP) PO SCH (17:35)
[2019-07-17] MEDS ORDERED: INSULIN (LEVEMIR) 100 UNITS/ML UNITS SQ ONE (22:00)
[2019-07-18] MEDS: AMPICILLIN NA/SULBACTAM NA 3 GM in SODIUM CHLORIDE 100 ML IVPB SCH ×3 (01:51→17:24)
[2019-07-18] MEDS ORDERED: METHADONE HCL 5 MG TABLET ONE (05:13)
[2019-07-18] MEDS ORDERED: METHADONE HCL 40 MG DISPERSABLE TABLET ONE (05:14)
[2019-07-18] MEDS: METHADONE 80 MG, METHADONE 5 MG PO SCH (06:06)
[2019-07-18] MEDS: GABAPENTIN 300 MG CAPSULE PO SCH ×3 (06:06→22:41)
[2019-07-18] MEDS: INSULIN SLIDING SCALE (NOVOLOG) 1 VIAL SQ SCH ×4 (06:23→22:43)
[2019-07-18 07:41] LABS: BASO % 0.6 % (0-2.0); EOS % 1.5 % (0-4.5); HEMATOCRIT 24.5 % (35.4-49); HEMOGLOBIN 8.3 GM/dL (11.7-16.9); LYMPH % 39.6 % (8-40); MCH 29.6 pg (25.7-33.7); MCHC 33.7 g/dl (32.0-35.9); MEAN CELL VOLUME 87.8 fl (80-96); MEAN PLT VOLUME 7.6 fl (7.5-11.1); MONO % 11.2 % (3.8-10.2); NEUT % 47.1 % (42.8-82.8); PLATELET COUNT 175 K/MM3 (134-434); RBC 2.79 M/mm3 (4.00-5.60); RDW 13.7 % (11.9-15.9); WHITE BLOOD COUNT 5.2 K/mm3 (4.0-10.0)
[2019-07-18 08:15] LABS: ALBUMIN 2.9 g/dl (3.4-5.0); BILIRUBIN,TOTAL 0.2 mg/dL (0.2-1); BLOOD UREA NITROGEN 33.6 mg/dL (7-18); CALCIUM 8.8 mg/dL (8.5-10.1); CREATININE 1.4 mg/dL (0.55-1.3); POTASSIUM 4.6 mmol/L (3.5-5.1); TOT PROT 6.1 g/dl (6.4-8.2)
[2019-07-18] MEDS ORDERED: PT OWN MED DRAWER 7, Y5N ONE (09:01)
[2019-07-18] MEDS: HEPARIN NA (PORCINE) 5,000 UNITS/ML 1ML VIAL SQ SCH ×2 (10:00→22:41)
[2019-07-18] MEDS: MULTIVITAMINS THER W-MINERALS COMBO TABLET (FP) PO SCH (10:00)
[2019-07-18] MEDS: NICOTINE 21 MG/24 HOURS TOPICAL PATCH TD SCH (10:00)
[2019-07-18] MEDS: CYANOCOBALAMIN 1,000 MCG TABLET (FP) PO SCH (10:01)
[2019-07-18] MEDS: COLLAGENASE CLOSTRIDIUM HIST. 30 GRAMS TUBE TP SCH (10:06)
--- NOTE | 2019-07-18 11:41 | PN ---
Progress Note, Physician History of Present Illness: AWAKE IN BED NO C/O LE PAIN WOUNDS DRY MRI RESULTS NOTED AFEBRILE WBC WNL - Current Medication List Current Medications: Active Medications Collagenase (Santyl -) 1 applic TP DAILY [facility]; Protocol Last Admin: 07/18/19 10:06 Dose: 1 applic Cyanocobalamin (Vitamin B12 -) 1,000 mcg PO DAILY [facility] Last Admin: 07/18/19 10:01 Dose: 1,000 mcg Diltiazem HCl (Cardizem Cd -) 360 mg PO DAILY [facility] Last Admin: 07/18/19 10:00 Dose: 360 mg Gabapentin (Neurontin -) 300 mg PO TID [facility] Last Admin: 07/18/19 06:06 Dose: 300 mg Heparin Sodium (Porcine) (Heparin -) 5,000 unit SQ BID [facility] Last Admin: 07/18/19 10:00 Dose: 5,000 unit Ampicillin Sodium/Sulbactam (Sodium 3 gm/ Sodium Chloride) 100 mls @ 200 mls/ hr IVPB Q8H-IV [facility] Last Admin: 07/18/19 10:00 Dose: 200 mls/hr Lactated Ringer's (Lactated Ringers Solution) 1,000 ml in 1,000 mls @ 42 mls/ hr IV ASDIR [facility] Last Admin: 07/17/19 12:33 Dose: 42 mls/hr Insulin Aspart (Novolog Vial Sliding Scale -) 1 vial SQ [facility]; Protocol Last Admin: 07/18/19 06:23 Dose: Not Given Insulin Detemir (Levemir Vial) 30 units SQ HS [facility] Last Admin: 07/16/19 21:11 Dose: 30 units Methadone HCl 80 mg/ Methadone (HCl 5 mg) 85 mg PO 0600 [facility] Last Admin: 07/18/19 06:06 Dose: 85 mg Multivitamins/Minerals (Theragran-M) 1 each PO DAILY [facility] Last Admin: 07/18/19 10:00 Dose: 1 each Nicotine (Nicoderm Patch -) 21 mg TD DAILY [facility] Last Admin: 07/18/19 10:00 Dose: 21 mg Nicotine Polacrilex (Nicorette Gum -) 4 mg BUC Q2H PRN PRN Reason: NICOTINE REPLACEMENT RX - Objective Vital Signs: Vital Signs Temperature 98.1 F 07/18/19 07:49 Pulse Rate 75 01/16/20 07:49 Respiratory Rate 20 07/18/20 07:49 Blood Pressure 136/68 07/18/19 07:49 O2 Sat by Pulse Oximetry (%) 97 07/17/19 21:00 Constitutional: Yes: No Distress Eyes: Yes: Conjunctiva Clear Cardiovascular: Yes: Regular Rate and Rhythm, S1, S2 Respiratory: Yes: CTA Bilaterally Gastrointestinal: Yes: Normal Bowel Sounds, Soft. No: Tenderness Extremities: Yes: Other (ERYTHEMA/ WARMTH RESOLVED) Edema: Yes Edema: LLE: 2+, RLE: 2+ Integumentary: Yes: Other (1CM BROOKE DRY ULCER L LE; 2 2CM DRY ULCERS R MEDIAL MALLEOLUS) Labs: CBC, BMP 07/18/19 06:43 07/18/19 06:43 INR, PTT INR 1.04 (0.83-1.09) 07/10/19 11:45 Assessment/Plan BILAT LE CELLULITIS/ INFECTED ULCERS ? EARLY OM R LE + WOUND C/S MIXED ORGANISMS CHRONIC VENOUS STASIS DERMATITIS MYELOMA ON IMMUNO THERAPY CONTINUE UNASYN FOR ANGIOGRAM TODAY CONTINUE ELEVATION, LOCAL CARE
[2019-07-18] MEDS: LACTATED RINGERS SOLUTION 1,000 ML/1,000 ML INFUS.BAG IV SCH ×3 (12:42→19:32)
[2019-07-18] MEDS ORDERED: HEPARIN NA (PORCINE) 5,000 UNITS/ML 1ML VIAL ONE (13:24)
[2019-07-18] MEDS ORDERED: LIDOCAINE HCL 1%, 10 MG/ML (20ML VIAL) ONE (13:24)
[2019-07-18] MEDS ORDERED: ONDANSETRON 4 MG/2 ML VIAL IVPUSH PRN ×2 (14:15→15:45)
[2019-07-18] MEDS ORDERED: LACTATED RINGERS SOLUTION 1,000 ML IV SCH ×2 (14:15→15:45)
[2019-07-18] MEDS ORDERED: PROMETHAZINE HCL 25 MG/1 ML VIAL IVPB PRN ×2 (14:15→15:45)
[2019-07-18] MEDS ORDERED: MIDAZOLAM HCL 2 MG/2 ML SINGLE DOSE VIAL ONE (14:26)
[2019-07-18] MEDS ORDERED: ceFAZolin SODIUM 1 GM VIAL IVPB ONE (14:30)
--- NOTE | 2019-07-18 14:53 | PN ---
Physical Exam: SUBJECTIVE: Patient seen and examined at bedside this AM. No acute events. Angio being done today, await results OBJECTIVE: Vital Signs Period Temp Pulse Resp BP Sys/Gamboa Pulse Ox Last 24 Hr 97.7 F-98.1 F 75-76 20-20 125-153/60-70 97 GENERAL: The patient is awake, alert, and fully oriented, in no acute distress. NECK: supple. LUNGS: Breath sounds equal, clear to auscultation bilaterally, no wheezes, no crackles, no accessory muscle use. HEART: Regular rate and rhythm, S1, S2 without murmur, rub or gallop. ABDOMEN: Soft, nontender, nondistended, normoactive bowel sounds, no guarding, no rebound EXTREMITIES: 1+ pulses, warm, well-perfused, 2+ edema. NEUROLOGICAL: Cranial nerves II through XII grossly intact. Normal speech, gait not observed. SKIN: b/l diabetic ulcers improving, treebark skin b/l, edematous b/l. Laboratory Results - last 24 hr 07/17/19 07/17/19 07/18/19 17:05 21:00 05:59 WBC RBC Hgb Hct MCV MCH MCHC RDW Plt Count MPV Absolute Neuts (auto) Neutrophils % Lymphocytes % Monocytes % Eosinophils % Basophils % Nucleated RBC % Sodium Potassium Chloride Carbon Dioxide Anion Gap BUN Creatinine Est GFR (CKD-EPI)AfAm Est GFR (CKD-EPI)NonAf POC Glucometer 184 188 106 Random Glucose Calcium Total Bilirubin AST ALT Alkaline Phosphatase Total Protein Albumin 07/18/19 07/18/19 07/18/19 06:43 06:43 12:41 WBC 5.2 RBC 2.79 L Hgb 8.3 L Hct 24.5 L MCV 87.8 MCH 29.6 MCHC 33.7 RDW 13.7 Plt Count 175 MPV 7.6 Absolute Neuts (auto) 2.5 Neutrophils % 47.1 Lymphocytes % 39.6 Monocytes % 11.2 H Eosinophils % 1.5 Basophils % 0.6 Nucleated RBC % 0 Sodium 140 Potassium 4.6 Chloride 107 Carbon Dioxide 27 Anion Gap 6 L BUN 33.6 H Creatinine 1.4 H Est GFR (CKD-EPI)AfAm 58.99 Est GFR (CKD-EPI)NonAf 50.90 POC Glucometer 92 Random Glucose 103 Calcium 8.8 Total Bilirubin 0.2 AST 15 ALT 17 Alkaline Phosphatase 119 H Total Protein 6.1 L Albumin 2.9 L Active Medications Generic Name Dose Route Start Last Admin Trade Name Freq PRN Reason Stop Dose Admin Collagenase 1 applic 07/16/19 10:00 07/18/19 10:06 Santyl - TP 1 applic DAILY FREDDY Administration Protocol Cyanocobalamin 1,000 mcg 07/17/19 17:00 07/18/19 10:01 Vitamin B12 - PO 1,000 mcg DAILY FREDDY Administration Diltiazem HCl 360 mg 07/16/19 10:00 07/18/19 10:00 Cardizem Cd - PO 360 mg DAILY FREDDY Administration Fentanyl 50 mcg 07/18/19 14:15 Sublimaze Injection - IVPUSH [id number] PRN PAIN-PACU ORDER X 4 DOSES ONLY Gabapentin 300 mg 07/14/19 14:00 07/18/19 13:37 Neurontin - PO Not Given TID FREDDY Heparin Sodium (Porcine) 5,000 unit 07/16/19 22:00 07/18/19 10:00 Heparin - SQ 5,000 unit BID FREDDY Administration Ampicillin Sodium/Sulbactam 100 mls @ 200 mls/hr 07/12/19 18:00 07/18/19 10: 00 Sodium 3 gm/ Sodium Chloride IVPB 200 mls/hr Q8H-IV FREDDY Administration Lactated Ringer's 1,000 ml in 1,000 mls @ 42 mls/hr 07/17/19 10:16 07/18/19 12:42 Lactated Ringers Solution IV Not Given ASDIR FREDDY Lactated Ringer's 1,000 mls @ 125 mls/hr 07/18/19 14:15 Lactated Ringers Solution IV ASDIR FREDDY Insulin Aspart 1 vial 07/12/19 16:30 07/18/19 12:42 Novolog Vial Sliding Scale - SQ Not Given ACHS [facility] Protocol Insulin Detemir 30 units 07/10/19 22:00 07/16/19 21:11 Levemir Vial SQ 30 units HS FREDDY Administration Methadone HCl 80 mg/ Methadone 85 mg 07/11/19 09:15 07/18/19 06:06 HCl 5 mg PO 85 mg 0600 FREDDY Administration Multivitamins/Minerals 1 each 07/11/19 10:00 07/18/19 10:00 Theragran-M PO 1 each DAILY FREDDY Administration Nicotine 21 mg 07/10/19 18:00 07/18/19 10:00 Nicoderm Patch - TD 21 mg DAILY FREDDY Administration Nicotine Polacrilex 4 mg 07/10/19 17:51 Nicorette Gum - BUC Q2H PRN NICOTINE REPLACEMENT RX Ondansetron HCl 4 mg 07/18/19 14:15 Zofran Injection IVPUSH Q6H PRN NAUSEA AND/OR VOMITING Promethazine HCl 12.5 mg 07/18/19 14:15 Phenergan Injection - IVPB Q6H PRN NAUSEA-FOR RESCUE AFTER 15 MIN Images: - Arterial duplex bilateral lower extremities noting no definite flow in the R popliteal artery with occlusion or very severe stenosis with monophasic flow within the superficial femoral and posterior tibial arteries, L leg noting monophasic flow within the popliteal and posterior tibial arteries - MRI bilateral lower extremities to evaluate for osteomyelitis noting R side minimal edema of the R medial malleolus may be related to early osteomyelitis. No changes on the L side. ASSESSMENT/PLAN: Elio Alvarado is a 68 y/o male with a past medical history of hypertension, diabetes mellitus (insulin dependent), multiple myeloma (daratumumab), CHF, hepatitis C (received treatment) admited for bilateral lower extremity wounds requiring IV antibiotics. #Bilateral lower extremity wounds - continue Unasyn for another 10 days after d/c, as likely this does not look like severe OM and likely will only require PO augmentin [id number] X 30+ days but will wait until after angio and confirm with ID. - will touch base with social work regarding how pt will receive the abx after d /c. #PAD - RLE angiogram done today pending results - c/w 42cc/hr LR - continuing collagenase cream. - gabapentin 300mg tid for pain - pt ambulating #Elevated alkaline phosphatase - likely 2/2 osteomyelitis - alk phos improving #Diabetes mellitus - HgbA1c 10.8 - Insulin Levemir 30units sq HS - pt been hypoglycemic may need to hold dose if hypoglycemic - ISS ACHS - BGM ACHS - dietary consulted for teaching #Elevated BNP - BNP 445, in setting of elevated BUN/Cr likely pre-renal and impaired clearance of BNP - Echo noting EF 60-65%, normal LV and RV, trace tricuspid regurg - Cardio consulted (Dr. Martinez) for pre-op clearance angiogram - Patient is at intermediate risk [Revised Cardiac Risk Index (RCRI) 2 predictor = 2.4%] of cardiac complications for the planned vascular procedure/ operation. There are no direct cardiac contraindications to the operation. - continuing fluids at 42cc/hr reduced from 75. #Chronic kidney disease - Cr today acutely worsened from 1.4->1.2->1.5 - spoke with Dr. Forbes (oncology) who informed me pts baseline Cr is around 1.8-2.2 so patient is likely not having an SHEY on CKD. - increased fluid to 75cc/hr and switched to LR given hyperchloremia - renal U/S with no definite renal abnormalities (BUN-32.8) possibly from dehydration. - hold lasix in light of pre-renal azotemia #Anemia - likely anemia of chronic disease 2/2 CKD impaired EPO release - Fe studies showing normal iron level. TIBC is pending #History of polysubstance abuse - Former Heroine, Cocaine Last use 20 years ago - Methadone dose 85mg #Hepatitis C - Patient has received treatment, continue outpatient follow up with Dr. Munoz. #Multiple Myeloma - Stable, receiving therapy with Daratummab, followed by Oncologist Dr. Forbse. - will need discussion with oncologist in the setting of IV antibiotic administration FEN - LR at 42cc/hr - continue to monitor electrolytes and replete as necessary - c/w Sodium modified diabetic diet Prophylaxis - Heparin 5000 units subq BID Disposition - continue to monitor on Med-surg Visit type - Emergency Visit Emergency Visit: Yes ED Registration Date: 07/10/19 Care time: The patient presented to the Emergency Department on the above date and was hospitalized for further evaluation of their emergent condition. - New Patient This patient is new to me today: No - Critical Care Critical Care patient: No - Discharge Referral Referred to [facility] No ATTENDING PHYSICIAN STATEMENT I saw and evaluated the patient. I reviewed the resident's note and discussed the case with the resident. I agree with the resident's findings and plan as documented. SUBJECTIVE: OBJECTIVE: ASSESSMENT AND PLAN:
[2019-07-18] MEDS ORDERED: LIDOCAINE HCL 1%, 10 MG/ML (20ML VIAL) NR ONE (14:55)
[2019-07-18] MEDS ORDERED: BACITRACIN 15 GM TUBE TOPICAL OINTMENT TP ONE (15:00)
[2019-07-18] MEDS ORDERED: BACITRACIN 15 GM TUBE TOPICAL OINTMENT ONE (15:13)
[2019-07-18] MEDS ORDERED: ceFAZolin SODIUM 1 GM VIAL ONE ×2 (15:20→15:21)
--- NOTE | 2019-07-18 15:32 | OP ---
Operative Note - Note: Operative Date: 07/18/19 Pre-Operative Diagnosis: Right foot ulcers Operation: CO2 Aortogram, RLE angiogram Findings: normal angiogram with runoff. Post-Operative Diagnosis: Same as Pre-op Surgeon: Jayjay Le Anesthesia: Fractional Estimated Blood Loss (mls): 20 Operative Report Dictated: Yes
[2019-07-18] MEDS ORDERED: NICOTINE POLACRILEX 4 MG GUM BUC PRN (15:45)
--- NOTE | 2019-07-18 15:49 | PN ---
Teaching Attending Note Name of Resident: Brent Andino ATTENDING PHYSICIAN STATEMENT I saw and evaluated the patient. I reviewed the resident's note and discussed the case with the resident. I agree with the resident's findings and plan as documented. SUBJECTIVE: Feels well. No complaints. No fever/chills. OBJECTIVE: Afebrile, Hemodynamically Stable Last Vital Signs Temp Pulse Resp BP Pulse Ox 98.0 F 81 20 144/95 94 L 07/18/19 10:00 07/18/19 10:00 07/18/19 10:00 07/18/19 10:00 07/18/19 09:00 Heart - S1 S2, RRR Lungs - R portacath. Clear to auscultation Abdomen - Soft, non-tender. High BMI, Bowel Sounds normal. Extremities - Chronic venous stasis with chronic skin changes and bilateral ulcers on dorsal aspect of L ankle and medial aspect of L ankle. Laboratory Results - last 24 hr 07/17/19 07/17/19 07/18/19 17:05 21:00 05:59 WBC RBC Hgb Hct MCV MCH MCHC RDW Plt Count MPV Absolute Neuts (auto) Neutrophils % Lymphocytes % Monocytes % Eosinophils % Basophils % Nucleated RBC % Sodium Potassium Chloride Carbon Dioxide Anion Gap BUN Creatinine Est GFR (CKD-EPI)AfAm Est GFR (CKD-EPI)NonAf POC Glucometer 184 188 106 Random Glucose Calcium Total Bilirubin AST ALT Alkaline Phosphatase Total Protein Albumin 07/18/19 07/18/19 07/18/19 06:43 06:43 12:41 WBC 5.2 RBC 2.79 L Hgb 8.3 L Hct 24.5 L MCV 87.8 MCH 29.6 MCHC 33.7 RDW 13.7 Plt Count 175 MPV 7.6 Absolute Neuts (auto) 2.5 Neutrophils % 47.1 Lymphocytes % 39.6 Monocytes % 11.2 H Eosinophils % 1.5 Basophils % 0.6 Nucleated RBC % 0 Sodium 140 Potassium 4.6 Chloride 107 Carbon Dioxide 27 Anion Gap 6 L BUN 33.6 H Creatinine 1.4 H Est GFR (CKD-EPI)AfAm 58.99 Est GFR (CKD-EPI)NonAf 50.90 POC Glucometer 92 Random Glucose 103 Calcium 8.8 Total Bilirubin 0.2 AST 15 ALT 17 Alkaline Phosphatase 119 H Total Protein 6.1 L Albumin 2.9 L Current Medications Generic Name Dose Route Start Last Admin Trade Name Freq PRN Reason Stop Dose Admin Collagenase 1 applic 07/19/19 10:00 Santyl - TP DAILY [facility] Protocol Cyanocobalamin 1,000 mcg 07/19/19 10:00 Vitamin B12 - PO DAILY [facility] Diltiazem HCl 360 mg 07/19/19 10:00 Cardizem Cd - PO DAILY [facility] Fentanyl 50 mcg 07/18/19 15:45 Sublimaze Injection - IVPUSH 07/19/19 15:44 [id number] PRN PAIN-PACU ORDER X 4 DOSES ONLY Gabapentin 300 mg 07/18/19 22:00 Neurontin - PO TID [facility] Heparin Sodium (Porcine) 5,000 unit 07/18/19 22:00 Heparin - SQ BID [facility] Ampicillin Sodium/Sulbactam 100 mls @ 200 mls/hr 07/18/19 18:00 Sodium 3 gm/ Sodium Chloride IVPB Q8H-IV [facility] Lactated Ringer's 1,000 ml in 1,000 mls @ 42 mls/hr 07/18/19 15:45 Lactated Ringers Solution IV ASDIR [facility] Lactated Ringer's 1,000 mls @ 125 mls/hr 07/18/19 15:45 Lactated Ringers Solution IV ASDIR [facility] Insulin Aspart 1 vial 07/18/19 16:30 Novolog Vial Sliding Scale - SQ ACHS [facility] Protocol Insulin Detemir 30 units 07/18/19 22:00 Levemir Vial SQ HS [facility] Methadone HCl 80 mg/ Methadone 85 mg 07/19/19 06:00 HCl 5 mg PO 0600 [facility] Multivitamins/Minerals 1 each 07/19/19 10:00 Theragran-M PO DAILY [facility] Nicotine 21 mg 07/19/19 10:00 Nicoderm Patch - TD DAILY [facility] Nicotine Polacrilex 4 mg 07/18/19 15:45 Nicorette Gum - BUC Q2H PRN NICOTINE REPLACEMENT RX Ondansetron HCl 4 mg 07/18/19 15:45 Zofran Injection IVPUSH Q6H PRN NAUSEA AND/OR VOMITING Promethazine HCl 12.5 mg 07/18/19 15:45 Phenergan Injection - IVPB Q6H PRN NAUSEA-FOR RESCUE AFTER 15 MIN Home Medications Medication Instructions Recorded Diltiazem HCl [Diltiazem 24Hr Cd] 240 mg PO DAILY #30 cap.er.24h 02/26/19 Furosemide [Lasix -] 40 mg PO DAILY #30 tablet 02/26/19 Insulin Detemir [Levemir Flextouch] 60 unit SQ HS #2 box 02/26/19 Multivitamin,Ther and Minerals 1 each PO DAILY #30 tablet 03/19/19 [Vitamin and Minerals] Methadone [Dolophine -] 85 mg PO DAILY 07/10/19 Fluticasone Prop 0.05% Nasal 1 - 2 spray NS DAILY PRN 07/12/19 [Flonase -] Insulin Sliding Scale [Novolog 0 units SQ ACHS 07/12/19 Vial Sliding Scale -] ASSESSMENT AND PLAN: 68 year old male with history of HTN, DM 2, MM, Hepatitis C, Chronic Diastolic CHF (EF 60-65%), Chronic venous Stasis, admitted with bilateral LE infected ulcers. 1. Acute Osteomyelitis of R medial Malleolus associated with infected ulcer/ cellulitis bilateral LEs. MRI shows OM R medial malleolus Continue Unasyn for 10 additional days foll by oral Augmentin as per discussion with ID. Further recs as per ID. 2. Peripheral Arterial Disease Duplex LEs - shows severe stenosis/occlusion superficial femoral/posterior tibial arteries. Eval by Vascular Surgery - underwent Angiogram 07/18 that shows normal vasculature with runoff. Neurontin for pain. Further recommendations as per Podiatry and Vascular Sx. 3. DM 2 - Continue Levemir and Novolog sliding scale. 4. CKD 3 - Stable 5. Chronic Anemia - Normocytic, likely sec to CKD vs chronic disease vs marrow suppression due to OM B12 level 324, borderline. Started on supplementation. 6. MM on IV Daratumab via R sided portacath - Hematology follow up as out- patient. 7. Hx of Opiate Abuse - on Methadone. 8. Hx of Hepatitis C - completed Rx. Outpatient follow up with Dr. Munoz. 9. HTN - continue Cardizem DVT Px - Heparin SQ
[2019-07-18] MEDS ORDERED: INSULIN (LEVEMIR) 100 UNITS/ML UNITS SQ SCH (22:00)
[2019-07-19] MEDS ORDERED: PT OWN MED DRAWER 7, Y5N ONE ×2 (01:29→09:45)
[2019-07-19] MEDS: AMPICILLIN NA/SULBACTAM NA 3 GM in SODIUM CHLORIDE 100 ML IVPB SCH ×2 (01:34→09:51)
[2019-07-19] MEDS ORDERED: METHADONE HCL 40 MG DISPERSABLE TABLET ONE (05:57)
[2019-07-19] MEDS ORDERED: METHADONE HCL 5 MG TABLET ONE (05:57)
[2019-07-19] MEDS ORDERED: METHADONE 80 MG, METHADONE 5 MG PO SCH (06:00)
[2019-07-19] MEDS: INSULIN SLIDING SCALE (NOVOLOG) 1 VIAL SQ SCH ×2 (06:09→11:54)
[2019-07-19] MEDS: GABAPENTIN 300 MG CAPSULE PO SCH ×2 (06:10→13:06)
[2019-07-19 08:14] LABS: BASO % 0.2 % (0-2.0); HEMATOCRIT 27.6 % (35.4-49); HEMOGLOBIN 9.2 GM/dL (11.7-16.9); LYMPH % 33.1 % (8-40); MCHC 33.2 g/dl (32.0-35.9); MEAN CELL VOLUME 87.3 fl (80-96); MEAN PLT VOLUME 7.4 fl (7.5-11.1); MONO % 9.7 % (3.8-10.2); PLATELET COUNT 214 K/MM3 (134-434); RBC 3.17 M/mm3 (4.00-5.60); WHITE BLOOD COUNT 6.9 K/mm3 (4.0-10.0)
[2019-07-19 08:22] LABS: ALBUMIN 3.4 g/dl (3.4-5.0); BILIRUBIN,TOTAL 0.2 mg/dL (0.2-1); BLOOD UREA NITROGEN 28.9 mg/dL (7-18); CALCIUM 8.9 mg/dL (8.5-10.1); CREATININE 1.5 mg/dL (0.55-1.3); POTASSIUM 4.3 mmol/L (3.5-5.1); TOT PROT 6.7 g/dl (6.4-8.2)
--- NOTE | 2019-07-19 09:30 | PN ---
Progress Note (short form) - Note Progress Note: VASCULAR SURGERY POST-OP CHECK 68yo M s/p LLE angiogram POD 1, pt seen and examined at bedside. Pt denies any groin pain. No fevers, chills, n/v, CP, or SOB. Last Vital Signs Temp Pulse Resp BP Pulse Ox 98.1 F 73 20 148/69 97 07/19/19 06:00 07/19/19 06:00 07/19/19 06:00 07/19/19 06:00 07/18/19 20:02 CBC, BMP 07/19/19 07:25 07/19/19 07:25 PE: Gen: A&O X3 Resp: breathing comfortably Ext: Lt groin dressing in place, no pulsatile mass Problem List - Problems (1) Leg ulcer, left Assessment/Plan: Plan -pt appears to be doing well, pt will need to follow up with wound care clinic as outpatient Code(s): L97.929 - NON-PRS CHRONIC ULC UNSP PRT OF L LOW LEG W UNSP SEVERITY Qualifiers: Non-pressure ulcer stage: unspecified non-pressure ulcer stage Qualified Code(s): L97.929 - Non-pressure chronic ulcer of unspecified part of left lower leg with unspecified severity
[2019-07-19] MEDS: HEPARIN NA (PORCINE) 5,000 UNITS/ML 1ML VIAL SQ SCH (09:52)
[2019-07-19] MEDS ORDERED: MULTIVITAMINS THER W-MINERALS COMBO TABLET (FP) PO SCH (10:00)
[2019-07-19] MEDS ORDERED: NICOTINE 21 MG/24 HOURS TOPICAL PATCH TD SCH (10:00)
[2019-07-19] MEDS ORDERED: MINERAL OIL/PET HY-PHL TOPICAL OINTMENT 454 GM JAR TP SCH (10:00)
[2019-07-19] MEDS ORDERED: COLLAGENASE CLOSTRIDIUM HIST. 30 GRAMS TUBE TP SCH (10:00)
[2019-07-19] MEDS ORDERED: CYANOCOBALAMIN 1,000 MCG TABLET (FP) PO SCH (10:00)
[2019-07-19] MEDS: LACTATED RINGERS SOLUTION 1,000 ML/1,000 ML INFUS.BAG IV SCH (13:06)
--- NOTE | 2019-07-19 14:07 | PN ---
Teaching Attending Note Name of Resident: Brent Andino ATTENDING PHYSICIAN STATEMENT I saw and evaluated the patient. I reviewed the resident's note and discussed the case with the resident. I agree with the resident's findings and plan as documented. SUBJECTIVE: Feels well. No complaints. No fever/chills. OBJECTIVE: Afebrile, Hemodynamically Stable Last Vital Signs Temp Pulse Resp BP Pulse Ox 98.1 F 73 20 148/69 97 07/19/19 06:00 07/19/19 06:00 07/19/19 06:00 07/19/19 06:00 07/18/19 20:02 Heart - S1 S2, RRR Lungs - R portacath. Lungs clear to auscultation Abdomen - Soft, non-tender. High BMI, Bowel Sounds normal. Extremities - Chronic venous stasis with chronic skin changes and bilateral ulcers on dorsal aspect of L ankle and 2 on medial aspect of R ankle. Laboratory Results - last 24 hr 07/18/19 07/18/19 07/19/19 17:22 22:44 06:08 WBC RBC Hgb Hct MCV MCH MCHC RDW Plt Count MPV Absolute Neuts (auto) Neutrophils % Lymphocytes % Monocytes % Eosinophils % Basophils % Nucleated RBC % Sodium Potassium Chloride Carbon Dioxide Anion Gap BUN Creatinine Est GFR (CKD-EPI)AfAm Est GFR (CKD-EPI)NonAf POC Glucometer 86 149 100 Random Glucose Calcium Total Bilirubin AST ALT Alkaline Phosphatase Total Protein Albumin 07/19/19 07/19/19 07/19/19 07:25 07:25 11:50 WBC 6.9 RBC 3.17 L Hgb 9.2 L Hct 27.6 L MCV 87.3 MCH 29.0 MCHC 33.2 RDW 14.0 Plt Count 214 D MPV 7.4 L Absolute Neuts (auto) 3.9 Neutrophils % 56.0 Lymphocytes % 33.1 Monocytes % 9.7 Eosinophils % 1.0 Basophils % 0.2 Nucleated RBC % 0 Sodium 138 Potassium 4.3 Chloride 106 Carbon Dioxide 27 Anion Gap 6 L BUN 28.9 H Creatinine 1.5 H Est GFR (CKD-EPI)AfAm 54.27 Est GFR (CKD-EPI)NonAf 46.83 POC Glucometer 118 Random Glucose 120 H Calcium 8.9 Total Bilirubin 0.2 AST 16 ALT 18 Alkaline Phosphatase 129 H Total Protein 6.7 Albumin 3.4 Current Medications Generic Name Dose Route Start Last Admin Trade Name Katina PRN Reason Stop Dose Admin Collagenase 1 applic 07/19/19 10:00 07/19/19 09:55 Santyl - TP 1 applic DAILY [facility] Administration Protocol Cyanocobalamin 1,000 mcg 07/19/19 10:00 07/19/19 09:52 Vitamin B12 - PO 1,000 mcg DAILY [facility] Administration Diltiazem HCl 360 mg 07/19/19 10:00 07/19/19 11:49 Cardizem Cd - PO 360 mg DAILY [facility] Administration Emollient Ointment 1 applic 07/19/19 10:00 07/19/19 09:55 Aquaphor - TP 1 applic DAILY [facility] Administration Fentanyl 50 mcg 07/18/19 15:45 Sublimaze Injection - IVPUSH 07/19/19 15:44 [id number] PRN PAIN-PACU ORDER X 4 DOSES ONLY Gabapentin 300 mg 07/18/19 22:00 07/19/19 13:06 Neurontin - PO 300 mg TID [facility] Administration Heparin Sodium (Porcine) 5,000 unit 07/18/19 22:00 07/19/19 09:52 Heparin - SQ 5,000 unit BID [facility] Administration Ampicillin Sodium/Sulbactam 100 mls @ 200 mls/hr 07/18/19 18:00 07/19/19 09: 51 Sodium 3 gm/ Sodium Chloride IVPB 200 mls/hr Q8H-IV [facility] Administration Lactated Ringer's 1,000 ml in 1,000 mls @ 42 mls/hr 07/18/19 15:45 07/19/19 13:06 Lactated Ringers Solution IV 42 mls/hr ASDIR [facility] Administration Insulin Aspart 1 vial 07/18/19 16:30 07/19/19 11:54 Novolog Vial Sliding Scale - SQ Not Given ACHS [facility] Protocol Insulin Detemir 30 units 07/18/19 22:00 07/18/19 22:41 Levemir Vial SQ 30 units HS [facility] Administration Methadone HCl 80 mg/ Methadone 85 mg 07/19/19 06:00 07/19/19 06:10 HCl 5 mg PO 85 mg 0600 [facility] Administration Multivitamins/Minerals 1 each 07/19/19 10:00 07/19/19 09:52 Theragran-M PO 1 each DAILY [facility] Administration Nicotine 21 mg 07/19/19 10:00 07/19/19 09:52 Nicoderm Patch - TD 21 mg DAILY [facility] Administration Nicotine Polacrilex 4 mg 07/18/19 15:45 Nicorette Gum - BUC Q2H PRN NICOTINE REPLACEMENT RX Ondansetron HCl 4 mg 07/18/19 15:45 Zofran Injection IVPUSH Q6H PRN NAUSEA AND/OR VOMITING Promethazine HCl 12.5 mg 07/18/19 15:45 Phenergan Injection - IVPB 07/19/19 15:44 Q6H PRN NAUSEA-FOR RESCUE AFTER 15 MIN Home Medications Medication Instructions Recorded Diltiazem HCl [Diltiazem 24Hr Cd] 240 mg PO DAILY #30 cap.er.24h 02/26/19 Furosemide [Lasix -] 40 mg PO DAILY #30 tablet 02/26/19 Insulin Detemir [Levemir Flextouch] 60 unit SQ HS #2 box 02/26/19 Multivitamin,Ther and Minerals 1 each PO DAILY #30 tablet 03/19/19 [Vitamin and Minerals] Methadone [Dolophine -] 85 mg PO DAILY 07/10/19 Fluticasone Prop 0.05% Nasal 1 - 2 spray NS DAILY PRN 07/12/19 [Flonase -] Insulin Sliding Scale [Novolog 0 units SQ ACHS 07/12/19 Vial Sliding Scale -] ASSESSMENT AND PLAN: 68 year old male with history of HTN, DM 2, MM, Hepatitis C, Chronic Diastolic CHF (EF 60-65%), Chronic venous Stasis, admitted with bilateral LE infected ulcers. 1. Acute Osteomyelitis of R Medial Malleolus associated with infected ulcer/ cellulitis bilateral LEs. MRI shows OM R medial malleolus Medically optimized for discharge pending final ID abx recommendations. Wound Care on discharge. 2. Peripheral Arterial Disease Duplex LEs - shows severe stenosis/occlusion superficial femoral/posterior tibial arteries. Eval by Vascular Surgery - underwent Angiogram 07/18 that shows normal vasculature with runoff. Neurontin for pain. Further recommendations as per Podiatry and Vascular Sx - for continued out- patient follow up. 3. DM 2 - Uncontrolled, A1c 10.8. Continue Levemir and Novolog sliding scale during in-patient stay. To resume home regimen Levemir and Novolog on discharge. Importance of compliance stressed. 4. CKD 3 - Stable 5. Chronic Anemia - Normocytic, likely sec to CKD vs chronic disease vs marrow suppression due to OM B12 level 324, borderline. Started on supplementation. 6. MM on IV Daratumab via R sided portacath - Hematology follow up as out- patient. 7. Hx of Opiate Abuse - on Methadone. 8. Hx of Hepatitis C - completed Rx. Outpatient follow up with Dr. Munoz. 9. HTN - continue Cardizem DVT Px - Heparin SQ
--- NOTE | 2019-07-19 16:03 | PN ---
Progress Note, Physician History of Present Illness: AWAKE IN BED NO C/O LE PAIN WOUNDS DRY MRI RESULTS NOTED AFEBRILE WBC WNL - Current Medication List Current Medications: Active Medications Collagenase (Santyl -) 1 applic TP DAILY [facility]; Protocol Last Admin: 07/19/19 09:55 Dose: 1 applic Cyanocobalamin (Vitamin B12 -) 1,000 mcg PO DAILY [facility] Last Admin: 07/19/19 09:52 Dose: 1,000 mcg Diltiazem HCl (Cardizem Cd -) 360 mg PO DAILY [facility] Last Admin: 07/19/19 11:49 Dose: 360 mg Emollient Ointment (Aquaphor -) 1 applic TP DAILY [facility] Last Admin: 07/19/19 09:55 Dose: 1 applic Gabapentin (Neurontin -) 300 mg PO TID [facility] Last Admin: 07/19/19 13:06 Dose: 300 mg Heparin Sodium (Porcine) (Heparin -) 5,000 unit SQ BID [facility] Last Admin: 07/19/19 09:52 Dose: 5,000 unit Ampicillin Sodium/Sulbactam (Sodium 3 gm/ Sodium Chloride) 100 mls @ 200 mls/ hr IVPB Q8H-IV [facility] Last Admin: 07/19/19 09:51 Dose: 200 mls/hr Lactated Ringer's (Lactated Ringers Solution) 1,000 ml in 1,000 mls @ 42 mls/ hr IV ASDIR [facility] Last Admin: 07/19/19 13:06 Dose: 42 mls/hr Insulin Aspart (Novolog Vial Sliding Scale -) 1 vial SQ [facility]; Protocol Last Admin: 07/19/19 11:54 Dose: Not Given Insulin Detemir (Levemir Vial) 30 units SQ HS [facility] Last Admin: 07/18/19 22:41 Dose: 30 units Methadone HCl 80 mg/ Methadone (HCl 5 mg) 85 mg PO 0600 [facility] Last Admin: 07/19/19 06:10 Dose: 85 mg Multivitamins/Minerals (Theragran-M) 1 each PO DAILY [facility] Last Admin: 07/19/19 09:52 Dose: 1 each Nicotine (Nicoderm Patch -) 21 mg TD DAILY [facility] Last Admin: 07/19/19 09:52 Dose: 21 mg Nicotine Polacrilex (Nicorette Gum -) 4 mg BUC Q2H PRN PRN Reason: NICOTINE REPLACEMENT RX Ondansetron HCl (Zofran Injection) 4 mg IVPUSH Q6H PRN PRN Reason: NAUSEA AND/OR VOMITING - Objective Vital Signs: Vital Signs Temperature 98.1 F 07/19/19 06:00 Pulse Rate 73 07/19/19 06:00 Respiratory Rate 07/19/19 06:00 Blood Pressure 148/69 07/19/19 06:00 O2 Sat by Pulse Oximetry (%) 97 07/18/19 20:02 Constitutional: Yes: No Distress Cardiovascular: Yes: Regular Rate and Rhythm, S1, S2 Respiratory: Yes: CTA Bilaterally Gastrointestinal: Yes: Normal Bowel Sounds, Soft. No: Tenderness Edema: Yes Edema: LLE: 2+, RLE: 2+ Integumentary: Yes: Other (R LE ULCERS DRY ERYTHEMA LE RESOLVED) Labs: CBC, BMP 07/19/19 07:25 07/19/19 07:25 INR, PTT INR 1.04 (0.83-1.09) 07/10/19 11:45 Assessment/Plan BILAT LE CELLULITIS/ INFECTED ULCERS ? 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
--- NOTE | 2019-07-19 17:14 | DS ---
Physical Exam: SUBJECTIVE: Patient seen and examined. No acute complaints. Denies fever, chills. OBJECTIVE: Vital Signs Period Temp Pulse Resp BP Sys/[place] Pulse Ox Last 24 Hr 97.5 F-98.1 F 73-93 20-20 122-148/57-78 97-97 PHYSICAL EXAM GENERAL: The patient is awake, alert, and fully oriented, in no acute distress. NECK: supple. LUNGS: Breath sounds equal, clear to auscultation bilaterally, no wheezes, no crackles, no accessory muscle use. HEART: Regular rate and rhythm, S1, S2 without murmur, rub or gallop. ABDOMEN: Soft, nontender, nondistended, normoactive bowel sounds, no guarding, no rebound EXTREMITIES: 1+ pulses, warm, well-perfused, 2+ edema. NEUROLOGICAL: Cranial nerves II through XII grossly intact. Normal speech, gait not observed. SKIN: b/l diabetic ulcers improving, treebark skin b/l, edematous b/l. LABS Laboratory Results - last 24 hr 07/18/19 07/18/19 07/19/19 17:22 22:44 06:08 WBC RBC Hgb Hct MCV MCH MCHC RDW Plt Count MPV Absolute Neuts (auto) Neutrophils % Lymphocytes % Monocytes % Eosinophils % Basophils % Nucleated RBC % Sodium Potassium Chloride Carbon Dioxide Anion Gap BUN Creatinine Est GFR (CKD-EPI)AfAm Est GFR (CKD-EPI)NonAf POC Glucometer 86 149 100 Random Glucose Calcium Total Bilirubin AST ALT Alkaline Phosphatase Total Protein Albumin 07/19/19 07/19/19 07/19/19 07:25 07:25 11:50 WBC 6.9 RBC 3.17 L Hgb 9.2 L Hct 27.6 L MCV 87.3 MCH 29.0 MCHC 33.2 RDW 14.0 Plt Count 214 D MPV 7.4 L Absolute Neuts (auto) 3.9 Neutrophils % 56.0 Lymphocytes % 33.1 Monocytes % 9.7 Eosinophils % 1.0 Basophils % 0.2 Nucleated RBC % 0 Sodium 138 Potassium 4.3 Chloride 106 Carbon Dioxide 27 Anion Gap 6 L BUN 28.9 H Creatinine 1.5 H Est GFR (CKD-EPI)AfAm 54.27 Est GFR (CKD-EPI)NonAf 46.83 POC Glucometer 118 Random Glucose 120 H Calcium 8.9 Total Bilirubin 0.2 AST 16 ALT 18 Alkaline Phosphatase 129 H Total Protein 6.7 Albumin 3.4 HOSPITAL COURSE: Date of Admission:07/10/19 Pt was admitted for RLE ulcers/cellulitis vs osteomyelitis. Pt was found to have ? very early stage Osteomyelitis of Rt medial malleolus with cellulitis and left leg cellulitis. Pt was placed on unasyn IV for [address] Mckeon's recs. Pt had an angiogram of RLE to confirm no narrowing in RLE, which was found to be negative and patient subsequently sent home on augmentin 875 BID X 30 days and will follow up with Dr. Mckeon in 1 week, wound care, and myself in the clinic. Pt stable. Date of Discharge: 07/19/19 Discharge Summary Problems reviewed: Yes Reason For Visit: ULCER OF LEFT EXTREMITY CELLULITIS Current Active Problems Leg ulcer, left (Chronic) Condition: Stable - Instructions Diet, Activity, Other Instructions: You were admitted for having weakness in your right lower extremity. While you were here we did several imaging studies (duplex ultrasound, CT head) which did not find any new issues. We had a vascular surgeon come evaluate you for possible blockage in one one of your blood vessels in your right leg and they feel you should follow up with Dr. Le to keep an eye on it as well as follow up in his wound care clinic. Please see Dr. Le in 1 week after discharge. Please follow up with your primary care doctor within 1 week. Please follow up with the infectious disease doctor regarding your antibiotic treatment in 1 week (Dr. Mckeon). Please continue your home medications as prescribed. Please return to the ER if you have any worsening of your current symptoms or: chest pain, shortness of breath, worsening numbness and tingling. Referrals: Aldo Mckeon MD [Staff Physician] - Mini Campos NP [Primary Care Provider] - Jayjay Le DO [Staff Physician] - - Home Medications Comprehensive Discharge Medication List: Ambulatory Orders Diltiazem HCl [Diltiazem 24Hr Cd] 240 mg PO DAILY #30 cap.er.24h 02/26/19 Furosemide [Lasix -] 40 mg PO DAILY #30 tablet 02/26/19 Insulin Detemir [Levemir Flextouch] 60 unit SQ HS #2 box 02/26/19 Multivitamin,Ther and Minerals [Vitamin and Minerals] 1 each PO DAILY #30 tablet 03/19/19 Methadone [Dolophine -] 85 mg PO DAILY 07/10/19 Fluticasone Prop 0.05% Nasal [Flonase -] 1 - 2 spray NS DAILY PRN 07/12/19 Insulin Sliding Scale [Novolog Vial Sliding Scale -] 0 units SQ ACHS 07/12/19 Amoxicillin/Potassium Clav [Augmentin 875-125 Tablet] 1 each PO BID #60 tablet 07/19/19 Collagenase Clostridium Hist. [Santyl] 90 gm TP PRN #1 oint...g. 07/19/19 Gabapentin [Neurontin -] 300 mg PO TID capsule 07/19/19 Insulin (Levemir) [Levemir Vial] 30 units SQ HS units 07/19/19 Mineral Oil/Pet Hy-Phl [Aquaphor] 1 applic TP PRN #1 jar 07/19/19 Nicotine Patch [Nicoderm Patch -] 21 mg TD DAILY patch 07/19/19 Nicotine Polacrilex [Nicorelief -] 4 mg BUC Q2H PRN gum 07/19/19 - Discharge Referral Referred to [facility] No ATTENDING PHYSICIAN STATEMENT I saw and evaluated the patient. I reviewed the resident's note and discussed the case with the resident. I agree with the resident's findings and plan as documented. SUBJECTIVE: OBJECTIVE: ASSESSMENT AND PLAN:
--- NOTE | 2019-07-19 17:49 | PN ---
Progress Note (short form) - Note Progress Note: Vascular Surgery Angiogram yesterday was normal. Pt just needs wound care. Santyl to all ulcers. Please have pt follow in wound care clinic next week Jayjay harp DO
[2019-07-19 17:52] VITALS: BP 143/74; PULSE 86; TEMP 97.6
--- NOTE | 2019-07-23 12:27 | OP ---
DATE OF OPERATION: 07/18/2019 PREOPERATIVE DIAGNOSIS: Ulcers, right foot. POSTOPERATIVE DIAGNOSIS: Ulcers, right foot. PROCEDURES: CO2 aortogram, right lower extremity; CO2 angiogram. SURGEON: Jayjay Moya DO ANESTHESIA: Fractional. BLOOD LOSS: 10 mL. INDICATIONS: Patient is a 68-year-old male who presents to the hospital with ulcers on his right medial ankle and foot. He says it has been going on for about 3 weeks. Preoperatively, he had an ultrasound done in the hospital showing that there is a possible popliteal occlusion, and it was decided that he would need an angiogram. Due to the fact that his creatinine was chronically elevated, he would need to have the angiogram done with CO2. Patient was consented for the procedure understanding all risks, benefits, alternatives then taken to the operating room. DESCRIPTION OF PROCEDURE: Once in the operating room, was laid on the operating room table in supine manner, and the area of the left and right groin were prepped and draped in sterile surgical manner. We then went ahead and injected 10 mL of lidocaine 1% over the left common femoral artery. We then took our micropuncture needle and punctured the left common femoral artery. Micropuncture wire was inserted. Micropuncture sheath was inserted, and a traditional 5-Spanish sheath was inserted. A 0.035 floppy guidewire was inserted into the aorta followed by Omni Flush catheter. We then went ahead and used our CO2 machine and performed a CO2 aortogram showing that the aorta and the iliac arteries still without any disease. We then used a 0.035 floppy guidewire and went up and over to the right common femoral artery, and our Omni Flush catheter followed. We then shot a CO2 angiogram of the right lower extremity showing that the common femoral artery, the profunda, and the SFA were patent. The popliteal artery was patent, and patient had 2-vessel runoff in the form of DP and PT going into the foot. The main runoff was PT. We then placed our 0.035 stiff guidewire down to the popliteal artery and brought a Quick-Cross catheter down there. We then again shot a CO2 angiogram of the popliteal artery and below knee, and the angiogram showed that the popliteal artery was patent. Patient had 2-vessel runoff in the form of PT and DP going into the foot, PT being the main artery, which is good for the patient because that is the area where the patient has all the ulcers. At this point, there was no intervention needed. We brought our Quick-Cross catheter up and over, and at this point, we removed our sheath from the left groin. Pressure was held for 5 minutes. After there was no more bleeding, area was wet and dried, and Dermabond was placed. Patient tolerated the procedure with no complications. Patient transferred to PACU in stable condition. JAYJAY MOYA DO NP/[id number]
== END 2019-07-19 18:02 | disposition home or self-care (01) | DRG 638 ==
LOC: JER 10:10 → JERBED 15:19 → J8W 23:38
PROVIDERS: ADMIT Internal Medicine
PROC: B40FYZZ Plain Radiography of Right Lower Extremity Arteries using Other Contrast (ICD-10-PCS; principal; 2019-07-18 13:00)
DX: E11.622 Type 2 diabetes mellitus with other skin ulcer (principal); L97.908 Non-pressure chronic ulcer of unspecified part of unspecified lower leg with other specified severity; C90.00 Multiple myeloma not having achieved remission; L03.115 Cellulitis of right lower limb; L03.116 Cellulitis of left lower limb; I13.0 Hypertensive heart and chronic kidney disease with heart failure and stage 1 through stage 4 chronic kidney disease, or unspecified chronic kidney disease; F11.20 Opioid dependence, uncomplicated; I50.32 Chronic diastolic (congestive) heart failure; Z68.41 Body mass index [BMI] 40.0-44.9, adult; E11.69 Type 2 diabetes mellitus with other specified complication; K21.9 Gastro-esophageal reflux disease without esophagitis; E11.22 Type 2 diabetes mellitus with diabetic chronic kidney disease; N18.3 Chronic kidney disease, stage 3 (moderate); B19.20 Unspecified viral hepatitis C without hepatic coma; D63.1 Anemia in chronic kidney disease; E11.51 Type 2 diabetes mellitus with diabetic peripheral angiopathy without gangrene; E66.01 Morbid (severe) obesity due to excess calories
CPT/HCPCS: 36415; 71045-TC-FY; 73590-TC-LT-FY; 73590-TC-RT-FY; 73630-TC-LT; 73630-TC-RT-FY; 73718-TC-LT; 73718-TC-RT; 76000-TC-FY; 76775-TC; 80048; 80053; 81003; 82607; 82728; 82746; 82962; 82977; 83036; 83540; 83735; 83880; 84100; 84466; 85025; 85027; 85044; 85610; 85651; 86140; 86850; 86870; 86900; 86901; 86902; 87040; 93005; 93010; 93306-TC; 93925-TC; 93970-TC; 94760; 97116-GP; 97161-GP; 99285-25; G0008; J1644; J7030; Q2036

== ENCOUNTER 2020-08-20 08:22 | Emergency (ER) | payer MEDICARE, OTHER ==
[2020-08-20 08:35] VITALS: BMI 43.4
[2020-08-20 10:24] LABS: BASO % 0.5 % (0-2.0); EOS % 1.4 % (0-4.5); LYMPH % 26.1 % (8-40); MCH 29.3 pg (25.7-33.7); MCHC 33.5 g/dl (32.0-35.9); MEAN CELL VOLUME 87.3 fl (80-96); MEAN PLT VOLUME 7.6 fl (7.5-11.1); MONO % 10.8 % (3.8-10.2); NEUT % 61.2 % (42.8-82.8); PLATELET COUNT 180 K/MM3 (134-434); RBC 2.75 M/mm3 (4.00-5.60); RDW 14.2 % (11.9-15.9); WHITE BLOOD COUNT 7.2 K/mm3 (4.0-10.0)
[2020-08-20 10:25] LABS: INR 1.08 (0.83-1.09); PROTHROMBIN TIME (PATIENT) 13.2 SEC (9.7-13.0)
[2020-08-20] MEDS ORDERED: LACTATED RINGERS SOLUTION 1000 ML INFUS.BAG IV ONE (10:26)
[2020-08-20 10:28] LABS: ACTIVATED PTT 28.9 SECONDS (25.2-36.5)
[2020-08-20 10:43] LABS: POTASSIUM 4.2 mmol/L (3.5-5.1)
[2020-08-20 10:45] LABS: CALCIUM 8.3 mg/dL (8.5-10.1)
[2020-08-20 10:49] LABS: CREATININE 1.9 mg/dL (0.55-1.3)
[2020-08-20 10:50] LABS: BILIRUBIN,TOTAL 0.2 mg/dL (0.2-1)
[2020-08-20 10:51] LABS: TOT PROT 7.2 g/dl (6.4-8.2)
[2020-08-20] MEDS ORDERED: MEROPENEM 1 GM VIAL (RESTRICTED TO ID) IVPB ONE (11:31)
[2020-08-20] MEDS: MEROPENEM 1 GM in DEXTROSE 5%-WATER 100 ML IVPB SCH ×2 (11:44)
[2020-08-20 14:57] VITALS: TEMP 98.9
[2020-08-20] MEDS ORDERED: INSULIN SLIDING SCALE (NOVOLOG) 1 VIAL SQ SCH (16:30)
[2020-08-20 16:40] VITALS: BP 127/86; PULSE 86
[2020-08-20] MEDS ORDERED: HEPARIN NA (PORCINE) 5,000 UNITS/ML 1ML VIAL SQ SCH (18:00)
[2020-08-20] MEDS ORDERED: MEROPENEM 1 GM in DEXTROSE 5%-WATER 100 ML IVPB SCH (18:00)
[2020-08-21] MEDS ORDERED: MEROPENEM 1 GM in DEXTROSE 5%-WATER 100 ML IVPB SCH (10:00)
== END 2020-08-20 16:35 | disposition short-term general hospital (02) ==
LOC: JER 08:22 → JERBED 09:36 → UNDOADMIN 09:36 → JER 16:35
DX: L97.513 Non-pressure chronic ulcer of other part of right foot with necrosis of muscle (principal)
CPT/HCPCS: 36415; 73610-TC-RT-FY; 73630-TC-RT-FY; 80053; 83605; 85025; 85610; 85730; 86850; 86900; 86901; 87040; 87070; 87186; 87205; 93005; 93010; 96374; 99285-25; C9803; U0003

== ENCOUNTER 2022-02-02 10:47 | Inpatient (IN) | payer MEDICARE, OTHER ==
[2022-02-02 11:11] VITALS: BMI 35.5
[2022-02-02] MEDS ORDERED: ACETAMINOPHEN 325 MG TABLET (FP) PO ONE (11:57)
[2022-02-02] MEDS ORDERED: ACETAMINOPHEN 325 MG TABLET (FP) ONE (12:09)
[2022-02-02 14:52] LABS: BASO % 0.3 % (0-2.0); EOS % 0.6 % (0-4.5); HEMATOCRIT 31.1 % (35.4-49); HEMOGLOBIN 10.3 GM/dL (11.7-16.9); LYMPH % 26.1 % (8-40); MCH 28.6 pg (25.7-33.7); MEAN CELL VOLUME 86.7 fl (80-96); MEAN PLT VOLUME 8.1 fl (7.5-11.1); MONO % 8.5 % (3.8-10.2); NEUT % 64.5 % (42.8-82.8); PLATELET COUNT 115 10^3/uL (134-434); RBC 3.59 M/mm3 (4.00-5.60); RDW 13.9 % (11.9-15.9); WHITE BLOOD COUNT 7.8 K/mm3 (4.0-10.0)
[2022-02-02 15:17] LABS: CHLORIDE 100 mmol/L (98-107); SODIUM 136 mmol/L (136-145)
[2022-02-02 15:19] LABS: CALCIUM 8.6 mg/dL (8.5-10.1); GLUCOSE,RANDOM 198 mg/dL (74-106)
[2022-02-02 15:20] LABS: ALBUMIN 3.5 g/dl (3.4-5.0); ANION GAP 10 MMOL/L (8-16); BLOOD UREA NITROGEN 45.6 mg/dL (7-18); CO2 27 mmol/L (21-32)
[2022-02-02 15:23] LABS: CREATININE 2.9 mg/dL (0.55-1.3); SGOT/AST 33 U/L (15-37); SGPT/ALT 26 U/L (13-61)
[2022-02-02 15:24] LABS: BILIRUBIN,TOTAL 0.4 mg/dL (0.2-1); TOT PROT 7.7 g/dl (6.4-8.2)
[2022-02-02 15:26] LABS: ALK PHOS 103 U/L (45-117)
[2022-02-02 15:27] LABS: N-TERMINAL BNP 5021.8 pg/ml (5-125)
[2022-02-02] MEDS ORDERED: ASPIRIN 81 MG CHEWABLE TABLETS PO ONE (15:45)
[2022-02-02] MEDS ORDERED: ASPIRIN 81 MG CHEWABLE TABLETS ONE (15:48)
[2022-02-02] MEDS ORDERED: SODIUM CHLORIDE 1,000 ML IV ONE (15:55)
[2022-02-02] MEDS ORDERED: MEDICAL SUPPLY DEVI SCH (16:30)
[2022-02-02] MEDS ORDERED: PANTOPRAZOLE 20 MG TABLET PO PRN (16:30)
[2022-02-02] MEDS ORDERED: DOCUSATE SODIUM 100 MG CAPSULE (FP) PO PRN (16:30)
[2022-02-02] MEDS ORDERED: ALBUTEROL SO4 HFA INHALER IH PRN (16:30)
[2022-02-02] MEDS ORDERED: ENOXAPARIN NA (PORCINE) 40 MG/0.4 ML DISP.SYRIN SQ SCH (16:45)
[2022-02-02] MEDS ORDERED: GABAPENTIN 300 MG CAPSULE ONE (17:03)
[2022-02-02] MEDS: GABAPENTIN 300 MG CAPSULE PO SCH (17:05)
[2022-02-02] MEDS ORDERED: DEXTROSE 50%-WATER - 25 GM/50 ML VIAL IVPUSH PRN (18:00)
[2022-02-02] MEDS ORDERED: AMMONIUM LACTATE 12% LOTION 225 GM BOTTLE TP PRN (18:24)
[2022-02-02 19:30] LABS: EPI CELLS 4 /uL (0-25.1); HYALINE CASTS 2 /uL (0-3.1); PH,URINE 5.5 (5.0-8.0); URINE APPEARANCE CLOUDY; URINE BACTERIA >9,000 /uL (0-1359); URINE BILIRUBIN NEGATIVE (NEGATIVE); URINE COLOR YELLOW; URINE GLUCOSE (UA) NEGATIVE (NEGATIVE); URINE KETONE NEGATIVE (NEGATIVE); URINE LEUK ESTERASE 2+ (NEGATIVE); URINE NITRITE NEGATIVE (NEGATIVE); URINE PROTEIN 1+ (NEGATIVE); URINE RBC 9 /uL (0-23.9); URINE UROBILINOGEN 0.2 mg/dL (0.2-1.0); URINE WBC 430 /uL (0-25.8)
[2022-02-02] MEDS ORDERED: PATIENT'S OWN MEDICATION (NON-FORMULARY) (Insulin Glargine,Hum.Rec.Anlog [Basaglar Kwikpen SQ SCH (22:00)
[2022-02-02] MEDS ORDERED: HEPARIN NA (PORCINE) 5,000 UNITS/ML 1ML VIAL ONE (22:20)
[2022-02-02] MEDS ORDERED: ATORVASTATIN CA 80 MG TABLET (FP) ONE (22:20)
[2022-02-02] MEDS: FLUTICASONE PROP 0.05% 16 GM NASAL SPRAY NS SCH (22:38)
[2022-02-02] MEDS: ATORVASTATIN CA 80 MG TABLET (FP) PO SCH (22:38)
[2022-02-02] MEDS: HEPARIN NA (PORCINE) 5,000 UNITS/ML 1ML VIAL SQ SCH (22:38)
[2022-02-02] MEDS: INSULIN SLIDING SCALE (NOVOLOG) 1 VIAL SQ SCH (22:40)
[2022-02-03] MEDS: CEFTRIAXONE 1 GM in DEXTROSE 5%-WATER - 50 ML IVPB SCH ×2 (02:40→10:55)
[2022-02-03] MEDS: HEPARIN NA (PORCINE) 5,000 UNITS/ML 1ML VIAL SQ SCH ×3 (05:51→22:10)
[2022-02-03] MEDS: GABAPENTIN 300 MG CAPSULE PO SCH ×3 (05:51→18:02)
[2022-02-03] MEDS: INSULIN SLIDING SCALE (NOVOLOG) 1 VIAL SQ SCH ×4 (07:19→22:19)
[2022-02-03] MEDS: FLUTICASONE PROP 0.05% 16 GM NASAL SPRAY NS SCH (09:22)
[2022-02-03] MEDS: ASPIRIN COATED 81 MG TABLET.EC PO SCH (09:23)
[2022-02-03] MEDS: NIFEdipine E.R. 30 MG TABLET PO SCH (09:24)
[2022-02-03] MEDS: MULTIVITAMINS (DAILY MVI) TABLET (FP) PO SCH (09:24)
[2022-02-03] MEDS ORDERED: FUROSEMIDE 40 MG TABLET (FP) PO SCH (10:00)
[2022-02-03] MEDS ORDERED: methaDONE HCL 10 MG TABLET PO SCH (11:30)
[2022-02-03 12:55] LABS: BASO % 0.4 % (0-2.0); EOS % 1.2 % (0-4.5); HEMATOCRIT 30.4 % (35.4-49); HEMOGLOBIN 9.8 GM/dL (11.7-16.9); LYMPH % 34.3 % (8-40); MCH 28.4 pg (25.7-33.7); MCHC 32.3 g/dl (32.0-35.9); MEAN CELL VOLUME 87.8 fl (80-96); MEAN PLT VOLUME 8.5 fl (7.5-11.1); MONO % 8.6 % (3.8-10.2); NEUT % 55.5 % (42.8-82.8); PLATELET COUNT 106 10^3/uL (134-434); RBC 3.46 M/mm3 (4.00-5.60); RDW 13.7 % (11.9-15.9); WHITE BLOOD COUNT 4.6 K/mm3 (4.0-10.0)
[2022-02-03 13:04] LABS: INR 1.09 (0.83-1.09); PROTHROMBIN TIME (PATIENT) 12.6 SEC (9.7-13.0)
[2022-02-03 13:21] LABS: CALCIUM 8.5 mg/dL (8.5-10.1)
[2022-02-03 13:23] LABS: BLOOD UREA NITROGEN 41.8 mg/dL (7-18)
[2022-02-03] MEDS: ATORVASTATIN CA 80 MG TABLET (FP) PO SCH (22:10)
[2022-02-04] MEDS: HEPARIN NA (PORCINE) 5,000 UNITS/ML 1ML VIAL SQ SCH ×3 (05:49→21:54)
[2022-02-04] MEDS: GABAPENTIN 300 MG CAPSULE PO SCH ×3 (05:50→20:33)
[2022-02-04] MEDS: FLUTICASONE PROP 0.05% 16 GM NASAL SPRAY NS SCH ×3 (05:53→21:55)
[2022-02-04] MEDS: MULTIVITAMINS (DAILY MVI) TABLET (FP) PO SCH (09:52)
[2022-02-04] MEDS: ASPIRIN COATED 81 MG TABLET.EC PO SCH (09:52)
[2022-02-04] MEDS: NIFEdipine E.R. 30 MG TABLET PO SCH (09:52)
[2022-02-04] MEDS: CEFTRIAXONE 1 GM in DEXTROSE 5%-WATER - 50 ML IVPB SCH (09:52)
[2022-02-04] MEDS: INSULIN SLIDING SCALE (NOVOLOG) 1 VIAL SQ SCH ×5 (13:10→21:59)
[2022-02-04 13:29] LABS: BASO % 0.2 % (0-2.0); EOS % 1.8 % (0-4.5); HEMATOCRIT 31.9 % (35.4-49); HEMOGLOBIN 10.2 GM/dL (11.7-16.9); LYMPH % 45.2 % (8-40); MCH 27.9 pg (25.7-33.7); MCHC 31.8 g/dl (32.0-35.9); MEAN CELL VOLUME 87.7 fl (80-96); MEAN PLT VOLUME 8.5 fl (7.5-11.1); MONO % 9.1 % (3.8-10.2); NEUT % 43.7 % (42.8-82.8); PLATELET COUNT 131 10^3/uL (134-434); RBC 3.64 M/mm3 (4.00-5.60); RDW 13.7 % (11.9-15.9); WHITE BLOOD COUNT 4.8 K/mm3 (4.0-10.0)
[2022-02-04 13:50] LABS: CALCIUM 8.4 mg/dL (8.5-10.1)
[2022-02-04 13:51] LABS: BLOOD UREA NITROGEN 40.8 mg/dL (7-18)
[2022-02-04 13:53] LABS: CREATININE 1.8 mg/dL (0.55-1.3)
[2022-02-04 15:51] VITALS: RESP 18
[2022-02-04] MEDS ORDERED: AMMONIUM LACTATE 12% LOTION 225 GM BOTTLE TP PRN (20:43)
[2022-02-04] MEDS ORDERED: DEXTROSE 50%-WATER 25 GM/50 ML DISP.SYRIN IVPUSH PRN (20:43)
[2022-02-04] MEDS ORDERED: ALBUTEROL SO4 HFA INHALER IH PRN (20:43)
[2022-02-04] MEDS ORDERED: DOCUSATE SODIUM 100 MG CAPSULE (FP) PO PRN (20:43)
[2022-02-04] MEDS: ATORVASTATIN CA 80 MG TABLET (FP) PO SCH (21:54)
[2022-02-05] MEDS: GABAPENTIN 300 MG CAPSULE PO SCH ×3 (06:15→17:06)
[2022-02-05] MEDS: HEPARIN NA (PORCINE) 5,000 UNITS/ML 1ML VIAL SQ SCH ×3 (06:16→21:16)
[2022-02-05] MEDS: INSULIN SLIDING SCALE (NOVOLOG) 1 VIAL SQ SCH ×4 (06:21→21:17)
[2022-02-05] MEDS: ASPIRIN COATED 81 MG TABLET.EC PO SCH (08:30)
[2022-02-05] MEDS: PANTOPRAZOLE 20 MG TABLET PO PRN (09:29)
[2022-02-05] MEDS: MULTIVITAMINS (DAILY MVI) TABLET (FP) PO SCH (09:30)
[2022-02-05] MEDS: FUROSEMIDE 40 MG TABLET (FP) PO SCH (09:30)
[2022-02-05] MEDS: NIFEdipine E.R. 30 MG TABLET PO SCH (09:30)
[2022-02-05] MEDS ORDERED: CEFTRIAXONE 1 GM in DEXTROSE 5%-WATER - 50 ML IVPB SCH (10:00)
[2022-02-05] MEDS: FLUTICASONE PROP 0.05% 16 GM NASAL SPRAY NS SCH ×2 (10:21→21:16)
[2022-02-05] MEDS ORDERED: ACETAMINOPHEN 1000 MG/100 ML BAG IVPB PRN (16:49)
[2022-02-05] MEDS: ATORVASTATIN CA 80 MG TABLET (FP) PO SCH (21:16)
[2022-02-06 05:17] VITALS: BP 104/56; PULSE 64; TEMP 98.5
[2022-02-06] MEDS: HEPARIN NA (PORCINE) 5,000 UNITS/ML 1ML VIAL SQ SCH ×2 (06:13→13:36)
[2022-02-06] MEDS: GABAPENTIN 300 MG CAPSULE PO SCH ×2 (06:14→11:13)
[2022-02-06] MEDS: INSULIN SLIDING SCALE (NOVOLOG) 1 VIAL SQ SCH ×2 (06:18→11:12)
[2022-02-06] MEDS: ASPIRIN COATED 81 MG TABLET.EC PO SCH (08:19)
[2022-02-06] MEDS: PANTOPRAZOLE 20 MG TABLET PO PRN (09:19)
[2022-02-06] MEDS: NIFEdipine E.R. 30 MG TABLET PO SCH (09:19)
[2022-02-06] MEDS: FLUTICASONE PROP 0.05% 16 GM NASAL SPRAY NS SCH (09:19)
[2022-02-06] MEDS: MULTIVITAMINS (DAILY MVI) TABLET (FP) PO SCH (09:19)
[2022-02-06] MEDS: FUROSEMIDE 40 MG TABLET (FP) PO SCH (09:19)
== END 2022-02-06 18:05 | disposition home health service (06) | DRG 689 ==
LOC: JER 10:47 → JERBED 15:56 → J4W 02-03 01:39 → J6S 02-04 19:26
PROVIDERS: ADMIT Internal Medicine; ATTEND Internal Medicine
DX: N39.0 Urinary tract infection, site not specified (principal); I21.A1 Myocardial infarction type 2; C90.00 Multiple myeloma not having achieved remission; N17.9 Acute kidney failure, unspecified; I50.32 Chronic diastolic (congestive) heart failure; I13.0 Hypertensive heart and chronic kidney disease with heart failure and stage 1 through stage 4 chronic kidney disease, or unspecified chronic kidney disease; N18.4 Chronic kidney disease, stage 4 (severe); F11.20 Opioid dependence, uncomplicated; I45.10 Unspecified right bundle-branch block; B19.20 Unspecified viral hepatitis C without hepatic coma; E11.22 Type 2 diabetes mellitus with diabetic chronic kidney disease; E66.01 Morbid (severe) obesity due to excess calories; E78.5 Hyperlipidemia, unspecified; E11.51 Type 2 diabetes mellitus with diabetic peripheral angiopathy without gangrene; Z68.35 Body mass index [BMI] 35.0-35.9, adult; L85.3 Xerosis cutis; I36.1 Nonrheumatic tricuspid (valve) insufficiency; E86.0 Dehydration
CPT/HCPCS: 0241U-QW; 36415; 70450-TC; 71045-TC-FY; 73562-TC-LT-FY; 76775-TC; 80048; 80053; 80061; 81003; 82550; 82962; 83036; 83735; 83880; 84443; 84484; 85025; 85610; 87081; 87086; 87186; 93005; 93010; 93306-TC; 93970-TC; 97116-GP; 97161-GP; 99285-25; J1644

== ENCOUNTER 2022-05-23 11:24 | Inpatient (IN) | payer OTHER ==
[2022-05-23 15:05] LABS: BASO % 0.3 % (0-2.0); HEMATOCRIT 29.5 % (35.4-49); HEMOGLOBIN 8.6 GM/dL (11.7-16.9); LYMPH % 19.7 % (8-40); MCH 29.4 pg (25.7-33.7); MCHC 29.2 g/dl (32.0-35.9); MEAN CELL VOLUME 100.6 fl (80-96); MEAN PLT VOLUME 8.8 fl (7.5-11.1); PLATELET COUNT 163 10^3/uL (134-434); RBC 2.93 M/mm3 (4.00-5.60); RDW 23.2 % (11.9-15.9); WHITE BLOOD COUNT 6.7 K/mm3 (4.0-10.0)
[2022-05-23 15:14] LABS: ACTIVATED PTT 29.1 SECONDS (25.2-36.5)
[2022-05-23 15:29] LABS: CHLORIDE 102 mmol/L (98-107)
[2022-05-23 15:31] LABS: ALBUMIN 2.9 g/dl (3.4-5.0); BLOOD UREA NITROGEN 39.5 mg/dL (7-18); CALCIUM 7.8 mg/dL (8.5-10.1); CO2 25 mmol/L (21-32); GLUCOSE,RANDOM 112 mg/dL (74-106)
[2022-05-23 15:34] LABS: CREATININE 1.8 mg/dL (0.55-1.3)
[2022-05-23] MEDS ORDERED: VANCOMYCIN 1 GM/200 ML PREMIX BAG (RESTRICTED TO ID ONLY) IVPB ONE (15:35)
[2022-05-23 15:36] LABS: TOT PROT 9.8 g/dl (6.4-8.2)
[2022-05-23 15:37] LABS: ALK PHOS 125 U/L (45-117)
[2022-05-23] MEDS ORDERED: PIPERACILLIN/TAZOB 2.25 GM 2.25 GM/50 ML BAG IVPB ONE ×2 (15:40→23:07)
[2022-05-23] MEDS ORDERED: VANCOMYCIN/WATER FOR INJ (PEG) 1,000 MG/200 ML BAG IVPB ONE (15:40)
[2022-05-23 15:46] LABS: ANISOCYTOSIS 1+; MACROCYTOSIS 1+
[2022-05-23] MEDS: PIPERACILLIN/TAZOB 2.25 GM 2.25 GM in DEXTROSE 5%-WATER - 50 ML IVPB SCH ×2 (15:49→23:20)
[2022-05-23 17:36] LABS: ANION GAP -7 MMOL/L (8-16); SODIUM 120 mmol/L (136-145)
[2022-05-23 17:58] LABS: CALCIUM 8.3 mg/dL (8.5-10.1)
[2022-05-23 17:59] LABS: ALBUMIN 3.2 g/dl (3.4-5.0); BLOOD UREA NITROGEN 40.3 mg/dL (7-18)
[2022-05-23 18:03] LABS: BILIRUBIN,TOTAL 0.3 mg/dL (0.2-1); CREATININE 1.8 mg/dL (0.55-1.3)
[2022-05-23 18:17] LABS: TOT PROT 7.3 g/dl (6.4-8.2)
[2022-05-23] MEDS ORDERED: ACETAMINOPHEN 1000 MG/100 ML BAG IVPB ONE (20:39)
[2022-05-23] MEDS ORDERED: ACETAMINOPHEN INJECTION 100 ML IVPB ONE (21:14)
[2022-05-23] MEDS ORDERED: HEPARIN NA (PORCINE) 5,000 UNITS/ML 1ML VIAL ONE (23:07)
[2022-05-23] MEDS: HEPARIN NA (PORCINE) 5,000 UNITS/ML 1ML VIAL SQ SCH (23:20)
[2022-05-23] MEDS: INSULIN SLIDING SCALE (NOVOLOG) 1 VIAL SQ SCH (23:21)
[2022-05-23 23:43] LABS: EPI CELLS 1 /uL (0-25.1); HYALINE CASTS 0 /uL (0-3.1); PH,URINE 5.5 (5.0-8.0); URINE APPEARANCE CLEAR; URINE BILIRUBIN NEGATIVE (NEGATIVE); URINE COLOR YELLOW; URINE GLUCOSE (UA) NEGATIVE (NEGATIVE); URINE KETONE NEGATIVE (NEGATIVE); URINE LEUK ESTERASE 1+ (NEGATIVE); URINE NITRITE POSITIVE (NEGATIVE); URINE PROTEIN TRACE (NEGATIVE); URINE RBC 9 /uL (0-23.9); URINE UROBILINOGEN 0.2 mg/dL (0.2-1.0); URINE WBC 198 /uL (0-25.8)
[2022-05-24] MEDS ORDERED: VANCOMYCIN/WATER 2 GM/400 ML PREMIX BAG IVPB SCH (07:00)
[2022-05-24] MEDS ORDERED: VANCOMYCIN/WATER 2 GRAMS 2,000 MG/400 ML PIGGYBACK IVPB SCH (07:00)
[2022-05-24 08:19] LABS: HEMATOCRIT 29.2 % (35.4-49); HEMOGLOBIN 9.5 GM/dL (11.7-16.9); MCH 29.9 pg (25.7-33.7); MCHC 32.4 g/dl (32.0-35.9); MEAN CELL VOLUME 92.2 fl (80-96); MEAN PLT VOLUME 9.1 fl (7.5-11.1); PLATELET COUNT 143 10^3/uL (134-434); RBC 3.16 M/mm3 (4.00-5.60); RDW 14.2 % (11.9-15.9); WHITE BLOOD COUNT 4.6 K/mm3 (4.0-10.0)
[2022-05-24 08:43] LABS: RETICULOCYTES 1.11 % (0.5-1.5)
[2022-05-24 08:47] LABS: ALBUMIN 3.3 g/dl (3.4-5.0); CALCIUM 8.5 mg/dL (8.5-10.1)
[2022-05-24 08:48] LABS: BLOOD UREA NITROGEN 41.5 mg/dL (7-18); MAGNESIUM 1.9 mg/dL (1.8-2.4)
[2022-05-24 08:50] LABS: CREATININE 1.7 mg/dL (0.55-1.3); PHOSPHOROUS 3.8 mg/dL (2.5-4.9)
[2022-05-24 08:52] LABS: BILIRUBIN,TOTAL 0.2 mg/dL (0.2-1); TOT PROT 7.6 g/dl (6.4-8.2)
[2022-05-24] MEDS: PIPERACILLIN/TAZOB 2.25 GM 2.25 GM in DEXTROSE 5%-WATER - 50 ML IVPB SCH ×3 (10:10→17:27)
[2022-05-24] MEDS: INSULIN SLIDING SCALE (NOVOLOG) 1 VIAL SQ SCH ×4 (10:11→22:33)
[2022-05-24] MEDS: HEPARIN NA (PORCINE) 5,000 UNITS/ML 1ML VIAL SQ SCH ×3 (10:13→22:33)
[2022-05-24 11:54] VITALS: BMI 37.3
[2022-05-24] MEDS ORDERED: traMADol HCL 50 MG TABLET PO PRN (15:15)
[2022-05-24] MEDS ORDERED: INSULIN (NOVOLOG) ASPART 100 UNITS/ML 10ML VIAL ONE (16:42)
[2022-05-24] MEDS: ATORVASTATIN CA 80 MG TABLET (FP) PO SCH (22:33)
[2022-05-25] MEDS: PIPERACILLIN/TAZOB 2.25 GM 2.25 GM in DEXTROSE 5%-WATER - 50 ML IVPB SCH ×3 (02:33→18:55)
[2022-05-25] MEDS: ACETAMINOPHEN 325 MG TABLET (FP) PO PRN ×2 (02:34→22:25)
[2022-05-25] MEDS: HEPARIN NA (PORCINE) 5,000 UNITS/ML 1ML VIAL SQ SCH ×3 (06:50→22:24)
[2022-05-25] MEDS: INSULIN SLIDING SCALE (NOVOLOG) 1 VIAL SQ SCH ×4 (06:50→22:25)
[2022-05-25] MEDS: INSULIN (LEVEMIR) 100 UNITS/ML UNITS SQ SCH (06:50)
[2022-05-25] MEDS: NIFEdipine E.R. 30 MG TABLET PO SCH (09:43)
[2022-05-25] MEDS ORDERED: PATIENT'S OWN MEDICATION (NON-FORMULARY) (Insulin Glargine,Hum.Rec.Anlog [Basaglar Kwikpen SQ SCH ×2 (10:00)
[2022-05-25 10:33] LABS: BASO % 0.5 % (0-2.0); EOS % 1.9 % (0-4.5); HEMATOCRIT 26.4 % (35.4-49); HEMOGLOBIN 8.5 GM/dL (11.7-16.9); LYMPH % 35.3 % (8-40); MCH 29.1 pg (25.7-33.7); MCHC 32.2 g/dl (32.0-35.9); MEAN CELL VOLUME 90.3 fl (80-96); MEAN PLT VOLUME 8.4 fl (7.5-11.1); MONO % 9.9 % (3.8-10.2); NEUT % 52.4 % (42.8-82.8); PLATELET COUNT 140 10^3/uL (134-434); RBC 2.92 M/mm3 (4.00-5.60); RDW 13.7 % (11.9-15.9); WHITE BLOOD COUNT 3.8 K/mm3 (4.0-10.0)
[2022-05-25] MEDS ORDERED: methaDONE HCL 10 MG TABLET PO SCH (10:45)
[2022-05-25 11:20] LABS: ERYTHROCYTE SEDIMENTATION RATE 82 mm/hr (0-20)
[2022-05-25 11:31] LABS: CALCIUM 8.6 mg/dL (8.5-10.1)
[2022-05-25 11:32] LABS: BLOOD UREA NITROGEN 32.9 mg/dL (7-18)
[2022-05-25 11:35] LABS: CREATININE 1.5 mg/dL (0.55-1.3)
[2022-05-25] MEDS: FLUTICASONE PROP 0.05% 16 GM NASAL SPRAY NS SCH ×2 (11:41→22:24)
[2022-05-25] MEDS: VANCOMYCIN/WATER 2 GRAMS 2,000 MG/400 ML PIGGYBACK IVPB SCH ×2 (12:33→13:09)
[2022-05-25] MEDS: VANCOMYCIN/WATER FOR INJ (PEG) 1,000 MG/200 ML BAG IVPB SCH (15:00)
[2022-05-25] MEDS: ATORVASTATIN CA 80 MG TABLET (FP) PO SCH (22:24)
[2022-05-26] MEDS: VANCOMYCIN/WATER FOR INJ (PEG) 1,000 MG/200 ML BAG IVPB SCH ×2 (00:35→13:46)
[2022-05-26] MEDS: PIPERACILLIN/TAZOB 2.25 GM 2.25 GM in DEXTROSE 5%-WATER - 50 ML IVPB SCH ×3 (05:12→18:33)
[2022-05-26] MEDS: HEPARIN NA (PORCINE) 5,000 UNITS/ML 1ML VIAL SQ SCH ×3 (06:19→21:01)
[2022-05-26] MEDS: INSULIN (LEVEMIR) 100 UNITS/ML UNITS SQ SCH (06:20)
[2022-05-26] MEDS: INSULIN SLIDING SCALE (NOVOLOG) 1 VIAL SQ SCH ×4 (06:20→21:03)
[2022-05-26] MEDS: FLUTICASONE PROP 0.05% 16 GM NASAL SPRAY NS SCH ×2 (09:59→21:04)
[2022-05-26] MEDS: NIFEdipine E.R. 30 MG TABLET PO SCH (10:02)
[2022-05-26 10:35] LABS: HEMATOCRIT 25.8 % (35.4-49); HEMOGLOBIN 8.7 GM/dL (11.7-16.9); MCH 29.9 pg (25.7-33.7); MCHC 33.7 g/dl (32.0-35.9); MEAN CELL VOLUME 88.7 fl (80-96); MEAN PLT VOLUME 8.4 fl (7.5-11.1); PLATELET COUNT 141 10^3/uL (134-434); RBC 2.91 M/mm3 (4.00-5.60); RDW 13.8 % (11.9-15.9); WHITE BLOOD COUNT 3.6 K/mm3 (4.0-10.0)
[2022-05-26 10:37] LABS: INR 1.1 (0.83-1.09); PROTHROMBIN TIME (PATIENT) 12.7 SEC (9.7-13.0)
[2022-05-26 11:19] LABS: ERYTHROCYTE SEDIMENTATION RATE 67 mm/hr (0-20)
[2022-05-26 11:27] LABS: CALCIUM 8.8 mg/dL (8.5-10.1)
[2022-05-26 11:28] LABS: BLOOD UREA NITROGEN 32.3 mg/dL (7-18)
[2022-05-26 11:31] LABS: CREATININE 1.5 mg/dL (0.55-1.3)
[2022-05-26] MEDS ORDERED: FAMOTIDINE 20 MG/50 ML IVPB 20 MG/50 ML MG IVPB ONE (16:33)
[2022-05-26] MEDS: ATORVASTATIN CA 80 MG TABLET (FP) PO SCH (21:03)
[2022-05-27] MEDS: PIPERACILLIN/TAZOB 2.25 GM 2.25 GM in DEXTROSE 5%-WATER - 50 ML IVPB SCH ×3 (01:13→17:29)
[2022-05-27] MEDS: VANCOMYCIN/WATER FOR INJ (PEG) 1,000 MG/200 ML BAG IVPB SCH ×3 (02:15→14:21)
[2022-05-27] MEDS: HEPARIN NA (PORCINE) 5,000 UNITS/ML 1ML VIAL SQ SCH ×3 (06:45→21:51)
[2022-05-27] MEDS: INSULIN (LEVEMIR) 100 UNITS/ML UNITS SQ SCH (06:47)
[2022-05-27] MEDS: INSULIN SLIDING SCALE (NOVOLOG) 1 VIAL SQ SCH ×4 (06:48→21:52)
[2022-05-27] MEDS: FLUTICASONE PROP 0.05% 16 GM NASAL SPRAY NS SCH ×2 (09:31→21:50)
[2022-05-27] MEDS: NIFEdipine E.R. 30 MG TABLET PO SCH (09:31)
[2022-05-27 13:16] LABS: BLOOD UREA NITROGEN 31.1 mg/dL (7-18); CALCIUM 8.9 mg/dL (8.5-10.1)
[2022-05-27 13:20] LABS: CREATININE 1.5 mg/dL (0.55-1.3)
[2022-05-27 18:12] LABS: HEMOGLOBIN 8.8 GM/dL (11.7-16.9); MCH 29.8 pg (25.7-33.7); MCHC 32.8 g/dl (32.0-35.9); MEAN PLT VOLUME 8.7 fl (7.5-11.1); PLATELET COUNT 140 10^3/uL (134-434); RBC 2.96 M/mm3 (4.00-5.60); RDW 13.9 % (11.9-15.9); WHITE BLOOD COUNT 4.2 K/mm3 (4.0-10.0)
[2022-05-27 18:58] LABS: ERYTHROCYTE SEDIMENTATION RATE 63 mm/hr (0-20)
[2022-05-27] MEDS: ATORVASTATIN CA 80 MG TABLET (FP) PO SCH (21:54)
[2022-05-28] MEDS: VANCOMYCIN/WATER FOR INJ (PEG) 1,000 MG/200 ML BAG IVPB SCH ×2 (00:13→14:52)
[2022-05-28] MEDS: PIPERACILLIN/TAZOB 2.25 GM 2.25 GM in DEXTROSE 5%-WATER - 50 ML IVPB SCH ×3 (01:11→21:44)
[2022-05-28] MEDS: HEPARIN NA (PORCINE) 5,000 UNITS/ML 1ML VIAL SQ SCH ×3 (06:42→21:44)
[2022-05-28] MEDS: INSULIN (LEVEMIR) 100 UNITS/ML UNITS SQ SCH (06:44)
[2022-05-28] MEDS: INSULIN SLIDING SCALE (NOVOLOG) 1 VIAL SQ SCH ×4 (06:47→23:44)
[2022-05-28] MEDS: NIFEdipine E.R. 30 MG TABLET PO SCH (09:20)
[2022-05-28] MEDS: FLUTICASONE PROP 0.05% 16 GM NASAL SPRAY NS SCH ×2 (09:22→21:56)
[2022-05-28 10:36] LABS: HEMATOCRIT 27.6 % (35.4-49); HEMOGLOBIN 8.9 GM/dL (11.7-16.9); MCH 28.3 pg (25.7-33.7); MCHC 32.4 g/dl (32.0-35.9); MEAN CELL VOLUME 87.5 fl (80-96); MEAN PLT VOLUME 7.7 fl (7.5-11.1); PLATELET COUNT 152 10^3/uL (134-434); RBC 3.16 M/mm3 (4.00-5.60); RDW 14.2 % (11.9-15.9); WHITE BLOOD COUNT 5.4 K/mm3 (4.0-10.0)
[2022-05-28 11:18] LABS: BLOOD UREA NITROGEN 29.1 mg/dL (7-18); CALCIUM 8.8 mg/dL (8.5-10.1); CREATININE 1.5 mg/dL (0.55-1.3)
[2022-05-28] MEDS: VANCOMYCIN 750 MG in DEXTROSE 5%-WATER - 150 ML IVPB SCH (16:42)
[2022-05-28] MEDS: ACETAMINOPHEN 325 MG TABLET (FP) PO PRN (20:13)
[2022-05-28] MEDS: ATORVASTATIN CA 80 MG TABLET (FP) PO SCH (21:44)
[2022-05-29] MEDS: PIPERACILLIN/TAZOB 2.25 GM 2.25 GM in DEXTROSE 5%-WATER - 50 ML IVPB SCH ×2 (03:33→10:46)
[2022-05-29] MEDS: VANCOMYCIN 750 MG in DEXTROSE 5%-WATER - 150 ML IVPB SCH (04:20)
[2022-05-29] MEDS: INSULIN SLIDING SCALE (NOVOLOG) 1 VIAL SQ SCH ×4 (06:41→21:35)
[2022-05-29] MEDS: INSULIN (LEVEMIR) 100 UNITS/ML UNITS SQ SCH (06:41)
[2022-05-29] MEDS: HEPARIN NA (PORCINE) 5,000 UNITS/ML 1ML VIAL SQ SCH ×3 (06:41→21:36)
[2022-05-29] MEDS: ACETAMINOPHEN 325 MG TABLET (FP) PO PRN (06:52)
[2022-05-29] MEDS ORDERED: VANCOMYCIN/WATER FOR INJ (PEG) 750 MG/150 ML BAG IVPB SCH ×2 (09:17→15:00)
[2022-05-29 10:03] LABS: BASO % 0.6 % (0-2.0); EOS % 2.3 % (0-4.5); HEMATOCRIT 26.2 % (35.4-49); HEMOGLOBIN 8.6 GM/dL (11.7-16.9); MCH 29.8 pg (25.7-33.7); MCHC 32.9 g/dl (32.0-35.9); MEAN CELL VOLUME 90.6 fl (80-96); MEAN PLT VOLUME 8.4 fl (7.5-11.1); MONO % 10.6 % (3.8-10.2); NEUT % 58.5 % (42.8-82.8); PLATELET COUNT 150 10^3/uL (134-434); RDW 13.8 % (11.9-15.9); WHITE BLOOD COUNT 4.7 K/mm3 (4.0-10.0)
[2022-05-29 10:21] LABS: BLOOD UREA NITROGEN 26.8 mg/dL (7-18); CALCIUM 8.7 mg/dL (8.5-10.1)
[2022-05-29 10:25] LABS: CREATININE 1.5 mg/dL (0.55-1.3)
[2022-05-29] MEDS: FLUTICASONE PROP 0.05% 16 GM NASAL SPRAY NS SCH ×2 (10:46→21:23)
[2022-05-29] MEDS: NIFEdipine E.R. 30 MG TABLET PO SCH (10:46)
[2022-05-29] MEDS: ATORVASTATIN CA 80 MG TABLET (FP) PO SCH (21:36)
[2022-05-30] MEDS: HEPARIN NA (PORCINE) 5,000 UNITS/ML 1ML VIAL SQ SCH ×3 (06:04→22:01)
[2022-05-30] MEDS: INSULIN SLIDING SCALE (NOVOLOG) 1 VIAL SQ SCH ×4 (06:05→22:01)
[2022-05-30] MEDS: INSULIN (LEVEMIR) 100 UNITS/ML UNITS SQ SCH (06:05)
[2022-05-30] MEDS: NIFEdipine E.R. 30 MG TABLET PO SCH (10:17)
[2022-05-30] MEDS: FLUTICASONE PROP 0.05% 16 GM NASAL SPRAY NS SCH ×2 (10:19→22:02)
[2022-05-30] MEDS ORDERED: INSULIN SLIDING SCALE (NOVOLOG) 1 VIAL SQ SCH (11:00)
[2022-05-30 11:52] LABS: BASO % 0.4 % (0-2.0); EOS % 2.3 % (0-4.5); HEMATOCRIT 27.4 % (35.4-49); HEMOGLOBIN 8.9 GM/dL (11.7-16.9); LYMPH % 33.5 % (8-40); MCH 29.6 pg (25.7-33.7); MCHC 32.5 g/dl (32.0-35.9); MEAN CELL VOLUME 91.1 fl (80-96); MEAN PLT VOLUME 8.3 fl (7.5-11.1); MONO % 10.2 % (3.8-10.2); NEUT % 53.6 % (42.8-82.8); PLATELET COUNT 165 10^3/uL (134-434); RBC 3.01 M/mm3 (4.00-5.60); RDW 14.2 % (11.9-15.9); WHITE BLOOD COUNT 5.5 K/mm3 (4.0-10.0)
[2022-05-30 12:19] LABS: BLOOD UREA NITROGEN 29.4 mg/dL (7-18); CALCIUM 8.4 mg/dL (8.5-10.1)
[2022-05-30 12:22] LABS: CREATININE 1.4 mg/dL (0.55-1.3); PHOSPHOROUS 3.2 mg/dL (2.5-4.9)
[2022-05-30 12:23] LABS: BILIRUBIN,TOTAL 0.5 mg/dL (0.2-1)
[2022-05-30 12:24] LABS: TOT PROT 7.3 g/dl (6.4-8.2)
[2022-05-30] MEDS ORDERED: VANCOMYCIN 1 GM/200 ML PREMIX BAG (RESTRICTED TO ID ONLY) IVPB ONE (15:05)
[2022-05-30] MEDS: ACETAMINOPHEN 325 MG TABLET (FP) PO PRN (16:42)
[2022-05-30] MEDS ORDERED: INSULIN SLIDING SCALE (NOVOLOG) 1 VIAL SQ ONE (16:51)
[2022-05-30] MEDS: PIPERACILLIN/TAZOB 2.25 GM 2.25 GM in DEXTROSE 5%-WATER - 50 ML IVPB SCH (17:06)
[2022-05-30] MEDS: ATORVASTATIN CA 80 MG TABLET (FP) PO SCH (22:01)
[2022-05-31] MEDS: PIPERACILLIN/TAZOB 2.25 GM 2.25 GM in DEXTROSE 5%-WATER - 50 ML IVPB SCH ×3 (01:48→17:17)
[2022-05-31] MEDS: COLLAGENASE CLOSTRIDIUM HIST. 30 GRAMS TUBE TP SCH ×2 (02:41→18:52)
[2022-05-31] MEDS: HEPARIN NA (PORCINE) 5,000 UNITS/ML 1ML VIAL SQ SCH ×3 (06:24→21:30)
[2022-05-31] MEDS: INSULIN (LEVEMIR) 100 UNITS/ML UNITS SQ SCH (06:29)
[2022-05-31] MEDS: INSULIN SLIDING SCALE (NOVOLOG) 1 VIAL SQ SCH ×4 (06:31→21:32)
[2022-05-31] MEDS: NIFEdipine E.R. 30 MG TABLET PO SCH (09:53)
[2022-05-31] MEDS: ACETAMINOPHEN 325 MG TABLET (FP) PO PRN (10:00)
[2022-05-31] MEDS: FLUTICASONE PROP 0.05% 16 GM NASAL SPRAY NS SCH ×2 (12:16→21:36)
[2022-05-31] MEDS: ATORVASTATIN CA 80 MG TABLET (FP) PO SCH (21:30)
[2022-05-31] MEDS: MELATONIN 5 MG TABLETS PO PRN (21:30)
[2022-06-01] MEDS: PIPERACILLIN/TAZOB 2.25 GM 2.25 GM in DEXTROSE 5%-WATER - 50 ML IVPB SCH (01:44)
[2022-06-01] MEDS: HEPARIN NA (PORCINE) 5,000 UNITS/ML 1ML VIAL SQ SCH ×3 (06:52→22:24)
[2022-06-01] MEDS: INSULIN SLIDING SCALE (NOVOLOG) 1 VIAL SQ SCH ×4 (06:52→22:26)
[2022-06-01] MEDS: INSULIN (LEVEMIR) 100 UNITS/ML UNITS SQ SCH (06:55)
[2022-06-01] MEDS ORDERED: DALBAVANCIN HCL 1,500 MG in DEXTROSE 5%-WATER - 500 ML IVPB ONE (06:56)
[2022-06-01] MEDS: NIFEdipine E.R. 30 MG TABLET PO SCH (10:47)
[2022-06-01] MEDS: FLUTICASONE PROP 0.05% 16 GM NASAL SPRAY NS SCH ×2 (10:47→22:27)
[2022-06-01] MEDS: CEFTRIAXONE 2 GM in DEXTROSE 5%-WATER 100 ML IVPB SCH (10:47)
[2022-06-01] MEDS: COLLAGENASE CLOSTRIDIUM HIST. 30 GRAMS TUBE TP SCH (10:48)
[2022-06-01 11:28] LABS: HEMATOCRIT 29.6 % (35.4-49); HEMOGLOBIN 9.6 GM/dL (11.7-16.9); MCH 29.3 pg (25.7-33.7); MCHC 32.4 g/dl (32.0-35.9); MEAN CELL VOLUME 90.3 fl (80-96); MEAN PLT VOLUME 8.9 fl (7.5-11.1); PLATELET COUNT 189 10^3/uL (134-434); RBC 3.27 M/mm3 (4.00-5.60); RDW 14.6 % (11.9-15.9); WHITE BLOOD COUNT 6.1 K/mm3 (4.0-10.0)
[2022-06-01 11:54] LABS: CALCIUM 8.9 mg/dL (8.5-10.1)
[2022-06-01 11:55] LABS: BLOOD UREA NITROGEN 29.9 mg/dL (7-18)
[2022-06-01 11:58] LABS: CREATININE 1.5 mg/dL (0.55-1.3)
[2022-06-01] MEDS: ACETAMINOPHEN 325 MG TABLET (FP) PO PRN (12:26)
[2022-06-01] MEDS: ATORVASTATIN CA 80 MG TABLET (FP) PO SCH (22:26)
[2022-06-01] MEDS: MELATONIN 5 MG TABLETS PO PRN (22:55)
[2022-06-02 06:38] VITALS: PULSE 70; RESP 18
[2022-06-02] MEDS: HEPARIN NA (PORCINE) 5,000 UNITS/ML 1ML VIAL SQ SCH ×2 (06:53→14:18)
[2022-06-02] MEDS: INSULIN SLIDING SCALE (NOVOLOG) 1 VIAL SQ SCH ×3 (06:57→16:47)
[2022-06-02] MEDS: INSULIN (LEVEMIR) 100 UNITS/ML UNITS SQ SCH (06:58)
[2022-06-02 10:39] VITALS: BP 131/67; TEMP 98.1
[2022-06-02] MEDS: NIFEdipine E.R. 30 MG TABLET PO SCH (10:40)
[2022-06-02] MEDS: FLUTICASONE PROP 0.05% 16 GM NASAL SPRAY NS SCH ×2 (10:40→10:42)
[2022-06-02] MEDS: COLLAGENASE CLOSTRIDIUM HIST. 30 GRAMS TUBE TP SCH (10:40)
[2022-06-02] MEDS: CEFTRIAXONE 2 GM in DEXTROSE 5%-WATER 100 ML IVPB SCH (10:40)
[2022-06-02 11:18] LABS: HEMOGLOBIN 8.8 GM/dL (11.7-16.9); MCHC 32.6 g/dl (32.0-35.9); MEAN CELL VOLUME 88.9 fl (80-96); MEAN PLT VOLUME 8.2 fl (7.5-11.1); PLATELET COUNT 155 10^3/uL (134-434); RBC 3.03 M/mm3 (4.00-5.60); RDW 14.5 % (11.9-15.9); WHITE BLOOD COUNT 4.7 K/mm3 (4.0-10.0)
[2022-06-02 11:41] LABS: BLOOD UREA NITROGEN 29.1 mg/dL (7-18); CALCIUM 8.7 mg/dL (8.5-10.1)
[2022-06-02 11:45] LABS: CREATININE 1.4 mg/dL (0.55-1.3)
== END 2022-06-02 17:04 | disposition home or self-care (01) | DRG 638 ==
LOC: JER 11:24 → JERBED 13:29 → J7W 05-24 07:52 → J5S 05-25 12:55
PROVIDERS: ADMIT Internal Medicine; ATTEND Internal Medicine
PROC: 02HV33Z Insertion of Infusion Device into Superior Vena Cava, Percutaneous Approach (ICD-10-PCS; principal; 2022-06-02)
DX: E11.69 Type 2 diabetes mellitus with other specified complication (principal); F11.20 Opioid dependence, uncomplicated; M86.9 Osteomyelitis, unspecified; I87.2 Venous insufficiency (chronic) (peripheral); I13.10 Hypertensive heart and chronic kidney disease without heart failure, with stage 1 through stage 4 chronic kidney disease, or unspecified chronic kidney disease; Z85.79 Personal history of other malignant neoplasms of lymphoid, hematopoietic and related tissues; N18.30 Chronic kidney disease, stage 3 unspecified; E78.5 Hyperlipidemia, unspecified; D64.9 Anemia, unspecified; E11.65 Type 2 diabetes mellitus with hyperglycemia; D63.1 Anemia in chronic kidney disease; N17.9 Acute kidney failure, unspecified; E66.9 Obesity, unspecified; I83.015 Varicose veins of right lower extremity with ulcer other part of foot; L97.519 Non-pressure chronic ulcer of other part of right foot with unspecified severity
CPT/HCPCS: 0241U-QW; 36415; 36569; 73610-TC-RT-FY; 73630-TC-RT-FY; 73700-TC-RT; 73718-TC-RT; 75820-TC-FY; 77001-TC-FY; 80048; 80053; 81003; 82607; 82728; 82746; 82962; 83036; 83540; 83550; 83735; 84100; 84466; 85025; 85027; 85045; 85610; 85651; 85730; 86140; 86850; 86900; 86901; 87040; 87070; 87081; 87186; 87205; 93005; 93010; 93971-TC; 99285-25; C1751; G0463-25; G0480; J1644

== ENCOUNTER 2022-06-07 10:26 | Day surgery (SDC) | payer OTHER ==
[2022-06-07] MEDS ORDERED: DALBAVANCIN HCL 1,500 MG in DEXTROSE 5%-WATER - 500 ML IVPB ONE (11:15)
[2022-06-07 11:31] VITALS: RESP 19; TEMP 98.1
[2022-06-07 12:36] VITALS: BP 142/57; PULSE 81
== END 2022-06-07 12:36 | disposition home or self-care (01) ==
LOC: FINFUSION 10:26 → FM/S 10:28 → FINFUSION 12:36
PROVIDERS: ATTEND Internal Medicine Infectious Disease
DX: M86.171 Other acute osteomyelitis, right ankle and foot (principal); E11.22 Type 2 diabetes mellitus with diabetic chronic kidney disease; I12.9 Hypertensive chronic kidney disease with stage 1 through stage 4 chronic kidney disease, or unspecified chronic kidney disease; N18.30 Chronic kidney disease, stage 3 unspecified; Z79.4 Long term (current) use of insulin; I87.311 Chronic venous hypertension (idiopathic) with ulcer of right lower extremity; L97.519 Non-pressure chronic ulcer of other part of right foot with unspecified severity; D50.8 Other iron deficiency anemias; F11.20 Opioid dependence, uncomplicated
CPT/HCPCS: 96365; J0875

== ENCOUNTER 2022-09-01 11:35 | Emergency (ER) | payer OTHER ==
[2022-09-01 11:50] VITALS: BP 131/65; PULSE 87; RESP 17; TEMP 98.9; BMI 36.9
== END 2022-09-01 14:34 | disposition home or self-care (01) ==
LOC: JERFT 11:35
DX: R05.1 Acute cough (principal)
CPT/HCPCS: 71046-TC-FY; 97597; 99283-25

== ENCOUNTER 2022-12-06 12:06 | Inpatient (IN) | payer OTHER ==
[2022-12-06 12:14] VITALS: BMI 36.0
[2022-12-06 13:44] LABS: BASO % 0.7 % (0-2.0); EOS % 0.4 % (0-4.5); HEMATOCRIT 26.1 % (35.4-49); HEMOGLOBIN 8.3 GM/dL (11.7-16.9); LYMPH % 27.7 % (8-40); MCH 27.3 pg (25.7-33.7); MCHC 31.8 g/dl (32.0-35.9); MEAN CELL VOLUME 85.8 fl (80-96); MEAN PLT VOLUME 8.2 fl (7.5-11.1); MONO % 10.4 % (3.8-10.2); NEUT % 60.8 % (42.8-82.8); PLATELET COUNT 114 10^3/uL (134-434); RBC 3.05 M/mm3 (4.00-5.60); RDW 15.3 % (11.9-15.9); WHITE BLOOD COUNT 4.7 K/mm3 (4.0-10.0)
[2022-12-06 14:09] LABS: POTASSIUM 5.6 mmol/L (3.5-5.1)
[2022-12-06 14:11] LABS: BLOOD UREA NITROGEN 38.8 mg/dL (7-18); CALCIUM 8.6 mg/dL (8.5-10.1)
[2022-12-06 14:12] LABS: ALBUMIN 3.2 g/dl (3.4-5.0)
[2022-12-06 14:16] LABS: CREATININE 1.7 mg/dL (0.55-1.3); TOT PROT 7.8 g/dl (6.4-8.2)
[2022-12-06 14:19] LABS: N-TERMINAL BNP 902.7 pg/ml (5-125)
[2022-12-06 14:26] LABS: BILIRUBIN,TOTAL 0.3 mg/dL (0.2-1)
[2022-12-06] MEDS ORDERED: FUROSEMIDE 40 MG/4 ML INJECTABLE VIAL IVPUSH ONE (14:31)
[2022-12-06] MEDS ORDERED: FUROSEMIDE 40 MG/4 ML INJECTABLE VIAL ONE (14:36)
[2022-12-06 15:35] LABS: POTASSIUM 5.5 mmol/L (3.5-5.1)
[2022-12-06 15:36] LABS: CALCIUM 8.8 mg/dL (8.5-10.1)
[2022-12-06 15:40] LABS: CREATININE 1.8 mg/dL (0.55-1.3)
[2022-12-06] MEDS: INSULIN SLIDING SCALE (NOVOLOG) 1 VIAL SQ SCH (17:23)
[2022-12-06] MEDS: HEPARIN NA (PORCINE) 5,000 UNITS/ML 1ML VIAL SQ SCH (22:51)
[2022-12-06] MEDS: ATORVASTATIN CA 80 MG TABLET (FP) PO SCH (22:51)
[2022-12-07] MEDS ORDERED: FUROSEMIDE 40 MG/4 ML INJECTABLE VIAL IVPUSH SCH (06:00)
[2022-12-07] MEDS: INSULIN SLIDING SCALE (NOVOLOG) 1 VIAL SQ SCH ×3 (06:45→16:40)
[2022-12-07] MEDS ORDERED: INSULIN (LEVEMIR) 100 UNITS/ML UNITS SQ SCH ×2 (07:00→12:57)
[2022-12-07] MEDS ORDERED: ACETAMINOPHEN 325 MG TABLET (FP) PO PRN (07:50)
[2022-12-07 08:48] LABS: POTASSIUM 4.4 mmol/L (3.5-5.1)
[2022-12-07 08:49] LABS: BASO % 0.4 % (0-2.0); EOS % 1.2 % (0-4.5); HEMATOCRIT 26.4 % (35.4-49); HEMOGLOBIN 8.5 GM/dL (11.7-16.9); LYMPH % 25.4 % (8-40); MCH 27.6 pg (25.7-33.7); MCHC 32.3 g/dl (32.0-35.9); MEAN CELL VOLUME 85.4 fl (80-96); MEAN PLT VOLUME 8.7 fl (7.5-11.1); MONO % 8.7 % (3.8-10.2); NEUT % 64.3 % (42.8-82.8); PLATELET COUNT 122 10^3/uL (134-434); RBC 3.09 M/mm3 (4.00-5.60); RDW 15.2 % (11.9-15.9); WHITE BLOOD COUNT 4.2 K/mm3 (4.0-10.0)
[2022-12-07 08:54] LABS: BLOOD UREA NITROGEN 34.8 mg/dL (7-18)
[2022-12-07 08:57] LABS: CREATININE 1.5 mg/dL (0.55-1.3)
[2022-12-07] MEDS: TAMSULOSIN HCL 0.4 MG CAP PO SCH (09:49)
[2022-12-07] MEDS: GABAPENTIN 300 MG CAPSULE PO SCH (09:49)
[2022-12-07] MEDS: HEPARIN NA (PORCINE) 5,000 UNITS/ML 1ML VIAL SQ SCH ×3 (09:50→21:57)
[2022-12-07] MEDS: NIFEdipine E.R. 30 MG TABLET PO SCH (09:50)
[2022-12-07] MEDS: metoPROLOL SUCCINATE 25 MG TAB.SR.24H (FP) PO SCH (09:50)
[2022-12-07] MEDS ORDERED: PATIENT'S OWN MEDICATION (NON-FORMULARY) (Insulin Glargine,Hum.Rec.Anlog [Basaglar Kwikpen SQ SCH (10:00)
[2022-12-07] MEDS ORDERED: INSULIN (NOVOLOG) ASPART 100 UNITS/ML 10ML VIAL ONE (12:52)
[2022-12-07] MEDS ORDERED: methaDONE HCL 10 MG TABLET (FOR DETOX USE ONLY) PO SCH (14:45)
[2022-12-07] MEDS: ATORVASTATIN CA 80 MG TABLET (FP) PO SCH (21:57)
[2022-12-08] MEDS: HEPARIN NA (PORCINE) 5,000 UNITS/ML 1ML VIAL SQ SCH ×3 (06:17→21:36)
[2022-12-08] MEDS: INSULIN SLIDING SCALE (NOVOLOG) 1 VIAL SQ SCH ×3 (06:21→17:05)
[2022-12-08 08:18] LABS: BASO % 0.8 % (0-2.0); EOS % 1.8 % (0-4.5); HEMATOCRIT 30.9 % (35.4-49); HEMOGLOBIN 9.4 GM/dL (11.7-16.9); LYMPH % 34.5 % (8-40); MCH 26.6 pg (25.7-33.7); MCHC 30.5 g/dl (32.0-35.9); MEAN CELL VOLUME 87.2 fl (80-96); MEAN PLT VOLUME 9.7 fl (7.5-11.1); MONO % 10.8 % (3.8-10.2); NEUT % 52.1 % (42.8-82.8); PLATELET COUNT 141 10^3/uL (134-434); RBC 3.54 M/mm3 (4.00-5.60); RDW 14.8 % (11.9-15.9); WHITE BLOOD COUNT 4.5 K/mm3 (4.0-10.0)
[2022-12-08] MEDS: TAMSULOSIN HCL 0.4 MG CAP PO SCH (08:27)
[2022-12-08 08:39] LABS: POTASSIUM 4.3 mmol/L (3.5-5.1)
[2022-12-08 08:46] LABS: CALCIUM 8.6 mg/dL (8.5-10.1)
[2022-12-08 08:47] LABS: ALBUMIN 3.2 g/dl (3.4-5.0); BLOOD UREA NITROGEN 37.1 mg/dL (7-18)
[2022-12-08 08:49] LABS: PHOSPHOROUS 3.9 mg/dL (2.5-4.9)
[2022-12-08 08:50] LABS: CREATININE 1.6 mg/dL (0.55-1.3)
[2022-12-08 08:51] LABS: BILIRUBIN,TOTAL 0.3 mg/dL (0.2-1); TOT PROT 7.7 g/dl (6.4-8.2)
[2022-12-08] MEDS: metoPROLOL SUCCINATE 25 MG TAB.SR.24H (FP) PO SCH (10:30)
[2022-12-08] MEDS: GABAPENTIN 300 MG CAPSULE PO SCH (10:30)
[2022-12-08] MEDS: NIFEdipine E.R. 30 MG TABLET PO SCH (10:30)
[2022-12-08] MEDS ORDERED: INSULIN (NOVOLOG) ASPART 100 UNITS/ML 10ML VIAL ONE (11:38)
[2022-12-08] MEDS ORDERED: SODIUM CHLORIDE 250 ML IV STA (11:44)
[2022-12-08] MEDS: SODIUM CHLORIDE 1,000 ML IV SCH (16:19)
[2022-12-08] MEDS ORDERED: INSULIN (LEVEMIR) 100 UNITS/ML UNITS SQ SCH (17:20)
[2022-12-08] MEDS: ATORVASTATIN CA 80 MG TABLET (FP) PO SCH (21:37)
[2022-12-09] MEDS: SODIUM CHLORIDE 1,000 ML IV SCH ×2 (00:37→14:18)
[2022-12-09] MEDS ORDERED: INSULIN (NOVOLOG) ASPART 100 UNITS/ML 10ML VIAL ONE (06:03)
[2022-12-09] MEDS: HEPARIN NA (PORCINE) 5,000 UNITS/ML 1ML VIAL SQ SCH ×2 (06:33→14:19)
[2022-12-09] MEDS: INSULIN SLIDING SCALE (NOVOLOG) 1 VIAL SQ SCH ×2 (06:34→11:58)
[2022-12-09] MEDS: TAMSULOSIN HCL 0.4 MG CAP PO SCH (09:17)
[2022-12-09 10:36] VITALS: RESP 18
[2022-12-09] MEDS: GABAPENTIN 300 MG CAPSULE PO SCH (10:36)
[2022-12-09] MEDS: metoPROLOL SUCCINATE 25 MG TAB.SR.24H (FP) PO SCH (10:36)
[2022-12-09] MEDS: NIFEdipine E.R. 30 MG TABLET PO SCH (10:36)
[2022-12-09 15:08] VITALS: BP 148/75; PULSE 86; TEMP 98.6
== END 2022-12-09 15:45 | disposition home health service (06) | DRG 312 ==
LOC: JER 12:06 → JERBED 14:37 → J4W 20:17 → OBSVTOIN 12-08 10:24
PROVIDERS: ADMIT Internal Medicine; ATTEND Internal Medicine
DX: I95.1 Orthostatic hypotension (principal); U07.1 COVID-19; I50.32 Chronic diastolic (congestive) heart failure; I13.0 Hypertensive heart and chronic kidney disease with heart failure and stage 1 through stage 4 chronic kidney disease, or unspecified chronic kidney disease; I24.8 Other forms of acute ischemic heart disease; E11.22 Type 2 diabetes mellitus with diabetic chronic kidney disease; N18.9 Chronic kidney disease, unspecified; E78.5 Hyperlipidemia, unspecified; N40.0 Benign prostatic hyperplasia without lower urinary tract symptoms
CPT/HCPCS: 11721; 36415; 71045-TC-FY; 80048; 80053; 82962; 83735; 83880; 84100; 84484; 85025; 87635; 93005; 93010; 93306-TC; 93971-TC; 97116-GP; 97162-GP; 99285-25; G0378; G0463-25; J1644

== ENCOUNTER 2022-12-30 09:46 | Inpatient (IN) | payer OTHER ==
[2022-12-30 11:31] LABS: BASO % 0.8 % (0-2.0); HEMATOCRIT 26.2 % (35.4-49); HEMOGLOBIN 8.4 GM/dL (11.7-16.9); MCH 27.9 pg (25.7-33.7); MEAN CELL VOLUME 87.2 fl (80-96); MEAN PLT VOLUME 8.8 fl (7.5-11.1); MONO % 15.5 % (3.8-10.2); NEUT % 73.7 % (42.8-82.8); PLATELET COUNT 98 10^3/uL (134-434); RDW 15.2 % (11.9-15.9); WHITE BLOOD COUNT 5.1 K/mm3 (4.0-10.0)
[2022-12-30 11:36] LABS: INR 1.57 (0.83-1.09); PROTHROMBIN TIME (PATIENT) 18.1 SEC (9.7-13.0)
[2022-12-30 11:49] LABS: POTASSIUM 4.2 mmol/L (3.5-5.1)
[2022-12-30 11:52] LABS: ALBUMIN 2.9 g/dl (3.4-5.0); BLOOD UREA NITROGEN 48.2 mg/dL (7-18); CALCIUM 8.7 mg/dL (8.5-10.1); MAGNESIUM 1.8 mg/dL (1.8-2.4)
[2022-12-30 11:56] LABS: BILIRUBIN,TOTAL 0.8 mg/dL (0.2-1); CREATININE 2.4 mg/dL (0.55-1.3); TOT PROT 7.3 g/dl (6.4-8.2)
[2022-12-30 12:00] LABS: N-TERMINAL BNP 2258.3 pg/ml (5-125)
[2022-12-30 13:34] LABS: VENOUS BASE EXCESS -7.4 mmol/L (-2-2); VENOUS O2 SATURATION 75.4 % (70-80); VENOUS PCO2 31.2 mmHg (38-52); VENOUS PH 7.358 (7.310-7.410)
[2022-12-30 13:48] LABS: EPI CELLS 5 /uL (0-25.1); HYALINE CASTS 1 /uL (0-3.1); URINE APPEARANCE CLEAR; URINE BACTERIA >9,000 /uL (0-1359); URINE BILIRUBIN NEGATIVE (NEGATIVE); URINE COLOR YELLOW; URINE GLUCOSE (UA) NEGATIVE (NEGATIVE); URINE KETONE NEGATIVE (NEGATIVE); URINE LEUK ESTERASE 1+ (NEGATIVE); URINE NITRITE NEGATIVE (NEGATIVE); URINE PROTEIN 2+ (NEGATIVE); URINE RBC 49 /uL (0-23.9); URINE UROBILINOGEN 0.2 mg/dL (0.2-1.0); URINE WBC 224 /uL (0-25.8)
[2022-12-30] MEDS ORDERED: AZITHROMYCIN IVPB 500 MG in DEXTROSE 5%-WATER - 250 ML IVPB ONE (14:07)
[2022-12-30] MEDS ORDERED: CEFTRIAXONE 1,000 MG in DEXTROSE 5%-WATER - 50 ML IVPB ONE (14:08)
[2022-12-30] MEDS ORDERED: FUROSEMIDE 40 MG/4 ML INJECTABLE VIAL IVPUSH ONE (14:23)
[2022-12-30] MEDS ORDERED: CEFTRIAXONE 1 GM/50 ML BAG ONE (14:25)
[2022-12-30] MEDS ORDERED: FUROSEMIDE 40 MG/4 ML INJECTABLE VIAL ONE (14:27)
[2022-12-30] MEDS ORDERED: methaDONE HCL 10 MG TABLET (FOR DETOX USE ONLY) PO ONE (14:49)
[2022-12-30] MEDS ORDERED: PANTOPRAZOLE 20 MG TABLET PO PRN (14:50)
[2022-12-30 15:31] VITALS: BMI 33.5
[2022-12-30] MEDS ORDERED: AZITHROMYCIN IVPB 500 MG/250 ML BAG IVPB ONE (16:15)
[2022-12-30] MEDS: INSULIN SLIDING SCALE (NOVOLOG) 1 VIAL SQ SCH ×2 (16:58→21:36)
[2022-12-30] MEDS: ATORVASTATIN CA 80 MG TABLET (FP) PO SCH (21:33)
[2022-12-31] MEDS ORDERED: INSULIN (NOVOLOG) ASPART 100 UNITS/ML 10ML VIAL ONE ×4 (06:19→16:12)
[2022-12-31] MEDS: INSULIN SLIDING SCALE (NOVOLOG) 1 VIAL SQ SCH ×4 (06:23→22:16)
[2022-12-31] MEDS: TAMSULOSIN HCL 0.4 MG CAP PO SCH (08:29)
[2022-12-31 09:13] LABS: BASO % 0.8 % (0-2.0); EOS % 0.8 % (0-4.5); HEMATOCRIT 26.3 % (35.4-49); HEMOGLOBIN 8.4 GM/dL (11.7-16.9); LYMPH % 22.6 % (8-40); MCH 27.9 pg (25.7-33.7); MCHC 32.1 g/dl (32.0-35.9); MEAN CELL VOLUME 86.7 fl (80-96); MEAN PLT VOLUME 9.2 fl (7.5-11.1); MONO % 13.3 % (3.8-10.2); NEUT % 62.5 % (42.8-82.8); PLATELET COUNT 90 10^3/uL (134-434); RBC 3.03 M/mm3 (4.00-5.60); RDW 15.1 % (11.9-15.9); WHITE BLOOD COUNT 4.8 K/mm3 (4.0-10.0)
[2022-12-31 09:29] LABS: POTASSIUM 4.1 mmol/L (3.5-5.1)
[2022-12-31 09:34] LABS: BLOOD UREA NITROGEN 48.8 mg/dL (7-18)
[2022-12-31 09:37] LABS: ALBUMIN 2.6 g/dl (3.4-5.0); CALCIUM 8.8 mg/dL (8.5-10.1); MAGNESIUM 1.8 mg/dL (1.8-2.4)
[2022-12-31 09:39] LABS: CREATININE 2.3 mg/dL (0.55-1.3)
[2022-12-31 09:40] LABS: PHOSPHOROUS 3.2 mg/dL (2.5-4.9)
[2022-12-31 09:42] LABS: BILIRUBIN,TOTAL 1.2 mg/dL (0.2-1); TOT PROT 7.1 g/dl (6.4-8.2)
[2022-12-31] MEDS: NIFEdipine E.R. 30 MG TABLET PO SCH (09:52)
[2022-12-31] MEDS: metoPROLOL SUCCINATE 25 MG TAB.SR.24H (FP) PO SCH (09:52)
[2022-12-31] MEDS: GABAPENTIN 300 MG CAPSULE PO SCH (09:52)
[2022-12-31] MEDS: FUROSEMIDE 40 MG/4 ML INJECTABLE VIAL IVPUSH SCH (09:52)
[2022-12-31] MEDS ORDERED: PATIENT'S OWN MEDICATION (NON-FORMULARY) (Alfuzosin Hcl [Alfuzosin Hcl Er] 10 MG Tab.Er.24 PO SCH (10:00)
[2022-12-31] MEDS ORDERED: ENOXAPARIN NA (PORCINE) 40 MG/0.4 ML DISP.SYRIN SQ SCH (10:00)
[2022-12-31] MEDS: CEFTRIAXONE 1 GM in DEXTROSE 5%-WATER - 50 ML IVPB SCH (10:25)
[2022-12-31] MEDS: ALBUTEROL SO4 2.5/IPRATROPIUM 0.5 INH SOL 3 ML VIAL.NEB. NEB SCH ×3 (12:10→20:34)
[2022-12-31 14:21] VITALS: RESP 18
[2022-12-31] MEDS: ATORVASTATIN CA 80 MG TABLET (FP) PO SCH (22:16)
[2022-12-31] MEDS: ACETAMINOPHEN 325 MG TABLET (FP) PO PRN (23:05)
[2022-12-31] MEDS: guaiFENesin/D-M SUGAR-FREE/ACLHOL-FREE (200 MG/10 MG) 5 ML PO PRN (23:06)
[2023-01-01] MEDS: INSULIN SLIDING SCALE (NOVOLOG) 1 VIAL SQ SCH ×4 (06:51→23:29)
[2023-01-01] MEDS: ALBUTEROL SO4 2.5/IPRATROPIUM 0.5 INH SOL 3 ML VIAL.NEB. NEB SCH ×4 (08:05→20:05)
[2023-01-01] MEDS: TAMSULOSIN HCL 0.4 MG CAP PO SCH (08:59)
[2023-01-01] MEDS ORDERED: methaDONE HCL 10 MG TABLET (FOR DETOX USE ONLY) PO ONE (09:31)
[2023-01-01 10:02] LABS: CALCIUM 8.6 mg/dL (8.5-10.1)
[2023-01-01 10:03] LABS: ALBUMIN 2.3 g/dl (3.4-5.0)
[2023-01-01 10:06] LABS: BLOOD UREA NITROGEN 51.3 mg/dL (7-18); CREATININE 2.3 mg/dL (0.55-1.3)
[2023-01-01 10:07] LABS: TOT PROT 6.6 g/dl (6.4-8.2)
[2023-01-01 10:08] LABS: BILIRUBIN,TOTAL 0.7 mg/dL (0.2-1)
[2023-01-01] MEDS: NIFEdipine E.R. 30 MG TABLET PO SCH (10:59)
[2023-01-01] MEDS: FUROSEMIDE 40 MG/4 ML INJECTABLE VIAL IVPUSH SCH (10:59)
[2023-01-01] MEDS: CEFTRIAXONE 1 GM in DEXTROSE 5%-WATER - 50 ML IVPB SCH (11:00)
[2023-01-01] MEDS: GABAPENTIN 300 MG CAPSULE PO SCH (11:00)
[2023-01-01] MEDS: metoPROLOL SUCCINATE 25 MG TAB.SR.24H (FP) PO SCH (11:00)
[2023-01-01 16:18] LABS: BASO % 0.4 % (0-2.0); EOS % 0.7 % (0-4.5); HEMATOCRIT 23.4 % (35.4-49); HEMOGLOBIN 7.5 GM/dL (11.7-16.9); LYMPH % 13.5 % (8-40); MCHC 32.1 g/dl (32.0-35.9); MEAN CELL VOLUME 84.2 fl (80-96); MEAN PLT VOLUME 8.3 fl (7.5-11.1); MONO % 16.6 % (3.8-10.2); NEUT % 68.8 % (42.8-82.8); PLATELET COUNT 92 10^3/uL (134-434); RBC 2.78 M/mm3 (4.00-5.60); RDW 15.4 % (11.9-15.9); WHITE BLOOD COUNT 5.7 K/mm3 (4.0-10.0)
[2023-01-01 16:54] LABS: ERYTHROCYTE SEDIMENTATION RATE 83 mm/hr (0-20)
[2023-01-01] MEDS: ATORVASTATIN CA 80 MG TABLET (FP) PO SCH (23:28)
[2023-01-02] MEDS: INSULIN SLIDING SCALE (NOVOLOG) 1 VIAL SQ SCH ×4 (06:41→21:17)
[2023-01-02] MEDS: ALBUTEROL SO4 2.5/IPRATROPIUM 0.5 INH SOL 3 ML VIAL.NEB. NEB SCH ×4 (07:45→20:33)
[2023-01-02] MEDS ORDERED: methaDONE HCL 10 MG TABLET (FOR DETOX USE ONLY) PO ONE (08:09)
[2023-01-02] MEDS: TAMSULOSIN HCL 0.4 MG CAP PO SCH (08:44)
[2023-01-02] MEDS: guaiFENesin/D-M SUGAR-FREE/ACLHOL-FREE (200 MG/10 MG) 5 ML PO PRN (08:52)
[2023-01-02] MEDS: CEFTRIAXONE 1 GM in DEXTROSE 5%-WATER - 50 ML IVPB SCH (09:58)
[2023-01-02] MEDS: NIFEdipine E.R. 30 MG TABLET PO SCH (09:59)
[2023-01-02] MEDS: GABAPENTIN 300 MG CAPSULE PO SCH (09:59)
[2023-01-02] MEDS: metoPROLOL SUCCINATE 25 MG TAB.SR.24H (FP) PO SCH (09:59)
[2023-01-02 10:41] LABS: BASO % 0.3 % (0-2.0); EOS % 1.1 % (0-4.5); HEMATOCRIT 24.7 % (35.4-49); HEMOGLOBIN 7.8 GM/dL (11.7-16.9); LYMPH % 15.6 % (8-40); MCH 27.3 pg (25.7-33.7); MCHC 31.8 g/dl (32.0-35.9); MEAN CELL VOLUME 85.8 fl (80-96); MEAN PLT VOLUME 8.6 fl (7.5-11.1); MONO % 16.9 % (3.8-10.2); NEUT % 66.1 % (42.8-82.8); PLATELET COUNT 104 10^3/uL (134-434); RBC 2.88 M/mm3 (4.00-5.60); RDW 14.9 % (11.9-15.9); WHITE BLOOD COUNT 5.2 K/mm3 (4.0-10.0)
[2023-01-02 10:57] LABS: POTASSIUM 3.8 mmol/L (3.5-5.1)
[2023-01-02 11:03] LABS: CALCIUM 8.6 mg/dL (8.5-10.1)
[2023-01-02 11:04] LABS: ALBUMIN 2.4 g/dl (3.4-5.0); BLOOD UREA NITROGEN 52.8 mg/dL (7-18)
[2023-01-02 11:06] LABS: BILIRUBIN,TOTAL 0.6 mg/dL (0.2-1); TOT PROT 6.9 g/dl (6.4-8.2)
[2023-01-02 11:07] LABS: CREATININE 2.2 mg/dL (0.55-1.3)
[2023-01-02] MEDS ORDERED: methaDONE HCL 10 MG TABLET PO ONE (14:00)
[2023-01-02] MEDS ORDERED: POTASSIUM CHLORIDE TABS 20 MEQ TABLET.ER (FP) PO ONE (14:45)
[2023-01-02] MEDS ORDERED: INSULIN (NOVOLOG) ASPART 100 UNITS/ML 10ML VIAL ONE (16:43)
[2023-01-02] MEDS: ATORVASTATIN CA 80 MG TABLET (FP) PO SCH (21:16)
[2023-01-02] MEDS: ACETAMINOPHEN 325 MG TABLET (FP) PO PRN (21:16)
[2023-01-03] MEDS: ACETAMINOPHEN 325 MG TABLET (FP) PO PRN ×2 (05:58→21:12)
[2023-01-03] MEDS: guaiFENesin/D-M SUGAR-FREE/ACLHOL-FREE (200 MG/10 MG) 5 ML PO PRN (05:59)
[2023-01-03] MEDS: INSULIN SLIDING SCALE (NOVOLOG) 1 VIAL SQ SCH ×4 (06:00→21:14)
[2023-01-03] MEDS: INSULIN (LEVEMIR) 100 UNITS/ML UNITS SQ SCH ×2 (06:15→21:13)
[2023-01-03] MEDS: TAMSULOSIN HCL 0.4 MG CAP PO SCH (08:29)
[2023-01-03] MEDS: ALBUTEROL SO4 2.5/IPRATROPIUM 0.5 INH SOL 3 ML VIAL.NEB. NEB SCH ×4 (08:43→20:05)
[2023-01-03 09:09] LABS: BASO % 0.7 % (0-2.0); EOS % 1.1 % (0-4.5); HEMATOCRIT 24.8 % (35.4-49); HEMOGLOBIN 7.8 GM/dL (11.7-16.9); LYMPH % 18.6 % (8-40); MCHC 31.4 g/dl (32.0-35.9); MEAN CELL VOLUME 85.9 fl (80-96); MEAN PLT VOLUME 8.3 fl (7.5-11.1); MONO % 16.8 % (3.8-10.2); NEUT % 62.8 % (42.8-82.8); PLATELET COUNT 111 10^3/uL (134-434); RBC 2.88 M/mm3 (4.00-5.60); RDW 15.2 % (11.9-15.9); WHITE BLOOD COUNT 5.5 K/mm3 (4.0-10.0)
[2023-01-03] MEDS: CEFTRIAXONE 1 GM in DEXTROSE 5%-WATER - 50 ML IVPB SCH (09:29)
[2023-01-03] MEDS: NIFEdipine E.R. 30 MG TABLET PO SCH (09:30)
[2023-01-03] MEDS: metoPROLOL SUCCINATE 25 MG TAB.SR.24H (FP) PO SCH (09:30)
[2023-01-03] MEDS: GABAPENTIN 300 MG CAPSULE PO SCH (09:30)
[2023-01-03 09:32] LABS: POTASSIUM 4.1 mmol/L (3.5-5.1)
[2023-01-03] MEDS: FUROSEMIDE 40 MG TABLET (FP) PO SCH (09:32)
[2023-01-03 09:42] LABS: CREATININE 2.3 mg/dL (0.55-1.3)
[2023-01-03 09:43] LABS: BILIRUBIN,TOTAL 0.5 mg/dL (0.2-1); CALCIUM 8.8 mg/dL (8.5-10.1); TOT PROT 6.9 g/dl (6.4-8.2)
[2023-01-03 09:44] LABS: BLOOD UREA NITROGEN 53.7 mg/dL (7-18)
[2023-01-03 09:45] LABS: ALBUMIN 2.2 g/dl (3.4-5.0)
[2023-01-03] MEDS ORDERED: methaDONE HCL 10 MG TABLET (FOR DETOX USE ONLY) PO SCH (10:00)
[2023-01-03 14:35] LABS: ANISOCYTOSIS 0; HELMET CELLS 0; HOWELL-JOLLY BODIES 0; MACROCYTOSIS 0; OVALOCYTE 0; ROULEAU 0; SICKELED CELLS 0; TARGET CELLS 0; TEAR DROP CELLS 0; TOXIC GRANULATION 0
[2023-01-03] MEDS: ATORVASTATIN CA 80 MG TABLET (FP) PO SCH (21:12)
[2023-01-04] MEDS ORDERED: INSULIN (NOVOLOG) ASPART 100 UNITS/ML 10ML VIAL ONE ×2 (05:33→07:29)
[2023-01-04] MEDS: INSULIN (LEVEMIR) 100 UNITS/ML UNITS SQ SCH ×2 (06:02→22:15)
[2023-01-04] MEDS: INSULIN SLIDING SCALE (NOVOLOG) 1 VIAL SQ SCH ×4 (06:03→22:20)
[2023-01-04] MEDS: ALBUTEROL SO4 2.5/IPRATROPIUM 0.5 INH SOL 3 ML VIAL.NEB. NEB SCH ×4 (07:40→19:10)
[2023-01-04] MEDS: TAMSULOSIN HCL 0.4 MG CAP PO SCH (08:39)
[2023-01-04 09:29] LABS: BASO % 0.5 % (0-2.0); EOS % 1.7 % (0-4.5); HEMATOCRIT 23.9 % (35.4-49); HEMOGLOBIN 7.8 GM/dL (11.7-16.9); LYMPH % 16.3 % (8-40); MCH 27.4 pg (25.7-33.7); MCHC 32.5 g/dl (32.0-35.9); MEAN CELL VOLUME 84.1 fl (80-96); MEAN PLT VOLUME 8.2 fl (7.5-11.1); MONO % 15.1 % (3.8-10.2); NEUT % 66.4 % (42.8-82.8); PLATELET COUNT 96 10^3/uL (134-434); RBC 2.85 M/mm3 (4.00-5.60); RDW 15.5 % (11.9-15.9); WHITE BLOOD COUNT 5.2 K/mm3 (4.0-10.0)
[2023-01-04 09:39] LABS: INR 1.29 (0.83-1.09); PROTHROMBIN TIME (PATIENT) 14.9 SEC (9.7-13.0)
[2023-01-04 10:20] LABS: POTASSIUM 4.5 mmol/L (3.5-5.1)
[2023-01-04] MEDS: metoPROLOL SUCCINATE 25 MG TAB.SR.24H (FP) PO SCH (10:28)
[2023-01-04] MEDS: GABAPENTIN 300 MG CAPSULE PO SCH (10:28)
[2023-01-04] MEDS: FUROSEMIDE 40 MG TABLET (FP) PO SCH (10:28)
[2023-01-04] MEDS: NIFEdipine E.R. 30 MG TABLET PO SCH (10:28)
[2023-01-04 10:29] LABS: CALCIUM 8.7 mg/dL (8.5-10.1)
[2023-01-04 10:30] LABS: ALBUMIN 2.2 g/dl (3.4-5.0); BLOOD UREA NITROGEN 60.5 mg/dL (7-18)
[2023-01-04 10:33] LABS: CREATININE 2.1 mg/dL (0.55-1.3)
[2023-01-04 10:34] LABS: BILIRUBIN,TOTAL 0.5 mg/dL (0.2-1); TOT PROT 6.8 g/dl (6.4-8.2)
[2023-01-04] MEDS: ATORVASTATIN CA 80 MG TABLET (FP) PO SCH (22:12)
[2023-01-04] MEDS: guaiFENesin/D-M SUGAR-FREE/ACLHOL-FREE (200 MG/10 MG) 5 ML PO PRN (22:14)
[2023-01-05] MEDS: INSULIN SLIDING SCALE (NOVOLOG) 1 VIAL SQ SCH ×4 (06:30→22:01)
[2023-01-05] MEDS: INSULIN (LEVEMIR) 100 UNITS/ML UNITS SQ SCH ×2 (06:31→21:57)
[2023-01-05] MEDS ORDERED: INSULIN (NOVOLOG) ASPART 100 UNITS/ML 10ML VIAL ONE (06:43)
[2023-01-05] MEDS: ALBUTEROL SO4 2.5/IPRATROPIUM 0.5 INH SOL 3 ML VIAL.NEB. NEB SCH (07:40)
[2023-01-05] MEDS: TAMSULOSIN HCL 0.4 MG CAP PO SCH (08:54)
[2023-01-05] MEDS: GABAPENTIN 300 MG CAPSULE PO SCH (10:36)
[2023-01-05] MEDS: NIFEdipine E.R. 30 MG TABLET PO SCH (10:36)
[2023-01-05] MEDS: metoPROLOL SUCCINATE 25 MG TAB.SR.24H (FP) PO SCH (10:36)
[2023-01-05] MEDS: FUROSEMIDE 40 MG TABLET (FP) PO SCH (10:36)
[2023-01-05 11:58] LABS: BASO % 0.7 % (0-2.0); EOS % 1.1 % (0-4.5); HEMATOCRIT 23.6 % (35.4-49); HEMOGLOBIN 7.7 GM/dL (11.7-16.9); LYMPH % 18.1 % (8-40); MCH 27.3 pg (25.7-33.7); MCHC 32.4 g/dl (32.0-35.9); MEAN CELL VOLUME 84.1 fl (80-96); MEAN PLT VOLUME 8.1 fl (7.5-11.1); MONO % 11.8 % (3.8-10.2); NEUT % 68.3 % (42.8-82.8); PLATELET COUNT 115 10^3/uL (134-434); RBC 2.81 M/mm3 (4.00-5.60); RDW 15.6 % (11.9-15.9); WHITE BLOOD COUNT 4.5 K/mm3 (4.0-10.0)
[2023-01-05 12:03] LABS: INR 1.31 (0.83-1.09); PROTHROMBIN TIME (PATIENT) 15.2 SEC (9.7-13.0)
[2023-01-05 12:13] LABS: POTASSIUM 4.1 mmol/L (3.5-5.1)
[2023-01-05 12:17] LABS: CALCIUM 8.8 mg/dL (8.5-10.1)
[2023-01-05 12:18] LABS: ALBUMIN 2.2 g/dl (3.4-5.0); BLOOD UREA NITROGEN 62.2 mg/dL (7-18)
[2023-01-05 12:21] LABS: CREATININE 2.1 mg/dL (0.55-1.3)
[2023-01-05 12:22] LABS: TOT PROT 7.1 g/dl (6.4-8.2)
[2023-01-05 12:23] LABS: BILIRUBIN,TOTAL 0.5 mg/dL (0.2-1)
[2023-01-05] MEDS: POLYETHYLENE GLYCOL (HEALTHYLAX) 3350 17 GM PACKET PO SCH ×2 (14:21→21:57)
[2023-01-05] MEDS: guaiFENesin/D-M SUGAR-FREE/ACLHOL-FREE (200 MG/10 MG) 5 ML PO PRN (15:23)
[2023-01-05] MEDS: ATORVASTATIN CA 80 MG TABLET (FP) PO SCH (21:57)
[2023-01-05 23:15] VITALS: BP 135/63; PULSE 87; TEMP 98.1
== END 2023-01-05 23:40 | disposition short-term general hospital (02) | DRG 435 ==
LOC: JER 09:46 → JERBED 13:36 → J6S 15:08
PROVIDERS: ADMIT Internal Medicine; ATTEND Internal Medicine
DX: C22.0 Liver cell carcinoma (principal); I50.33 Acute on chronic diastolic (congestive) heart failure; U07.1 COVID-19; I13.0 Hypertensive heart and chronic kidney disease with heart failure and stage 1 through stage 4 chronic kidney disease, or unspecified chronic kidney disease; C90.00 Multiple myeloma not having achieved remission; N39.0 Urinary tract infection, site not specified; L97.319 Non-pressure chronic ulcer of right ankle with unspecified severity; C78.00 Secondary malignant neoplasm of unspecified lung; E11.51 Type 2 diabetes mellitus with diabetic peripheral angiopathy without gangrene; E11.621 Type 2 diabetes mellitus with foot ulcer; E11.65 Type 2 diabetes mellitus with hyperglycemia; D69.6 Thrombocytopenia, unspecified; N18.2 Chronic kidney disease, stage 2 (mild); D50.9 Iron deficiency anemia, unspecified; E78.5 Hyperlipidemia, unspecified
CPT/HCPCS: 0241U-QW; 36415; 71045-TC-FY; 71250-TC; 73610-TC-RT-FY; 73630-TC-RT-FY; 80048; 80053; 81003; 82105; 82308; 82803; 82962; 83036; 83605; 83735; 83880; 84100; 84484; 85025; 85610; 85651; 85730; 86140; 87040; 87086; 87186; 87635; 93005; 93010; 93970-TC; 94640; 97116-GP; 97162-GP; 99285-25